=== PATIENT | male | born 1970 | race Caucasian/White ===

== ENCOUNTER → 2019-03-05 08:10 | Outpatient (CLI) | payer SELFPAY ==
[2019-03-05 08:45] LABS: Basophils % 0.6 % (0.1-2.0); Eosinophils # 0.1 K/mm3 (0.0-0.4); Eosinophils % 1.7 % (0.1-12.0); Hematocrit 47.3 % (42.0-52.0); Hemoglobin 15.8 g/dL (14.1-18.0); Lymphocytes # 1.3 K/mm3 (0.7-4.5); Lymphocytes % 27.3 % (10-50); Mean Corpuscular HGB Conc 33.4 g/dL (31.8-35.4); Mean Corpuscular Hemoglobin 29.6 pg (27.0-31.2); Mean Corpuscular Volume 88.7 fl (80-94); Mean Platelet Volume 7.3 fl (7.4-10.4); Monocytes # 0.5 K/mm3 (0.1-1.0); Monocytes % 9.7 % (1.7-9.3); Neutrophils # 2.8 K/mm3 (1.8-7.8); Neutrophils % 60.8 % (37.0-80.0); Platelet Count 203 K/mm3 (142-424); Red Blood Count 5.33 M/mm3 (4.60-6.20); Red Cell Distribution Width 13.3 % (11.5-17.5); White Blood Count 4.7 K/mm3 (4.8-10.8)
[2019-03-05 09:51] LABS: Anion Gap 14.2 mEq/L (5-15); Blood Urea Nitrogen 18 mg/dL (7-18); Calcium 9.1 mg/dL (8.5-10.1); Carbon Dioxide 28 mmol/L (21.0-32.0); Chloride 100 mmol/L (98-107); Chol/HDL Ratio 6.7 (1-3.5); Cholesterol 209 mg/dL (140-200); Creatinine,Serum 1.16 mg/dL (0.70-1.30); Estimated Glomerular Filt Rate 68 ml/min (>60); GFR (African American) 82 ML/MIN (>60); Glucose 107 mg/dL (74-106); HDL Cholesterol 31 mg/dL (27-67); LDL Cholesterol 125 mg/dL (0-130); Potassium 4.2 mmoL/L (3.5-5.1); Sodium 138 mmol/L (136-145); Triglycerides 263 mg/dL (30-200); VLDL Cholesterol 53 mg/dL (0-40)
[2019-03-06 09:13] LABS: Testosterone,Total 231 ng/dL (264-916)
== END ==
PROVIDERS: Visit Provider Family Medicine
DX: I10 Essential (primary) hypertension (principal); R79.89 Other specified abnormal findings of blood chemistry
CPT/HCPCS: 36415; 80048; 80061; 83880; 84403; 85025

== ENCOUNTER → 2019-03-11 08:43 | Outpatient (CLI) | payer SELFPAY ==
--- NOTE | 2019-03-11 08:46 | CA_ITS ---
PROCEDURE: 2-D M-mode and color Doppler study INDICATIONS FOR THE TEST: Chest pain COPD Heart Murmur Tobacco Smoking Palpitations+ Fatigue Syncope Edema+ Hypertension+Diabetes Mellitus Rheumatic Fever SOB+LAUREN Obesity Hyperlipidemia Family History HD Additional History a-fib PATIENT INFORMATION HEIGHT: 72 WEIGHT:290 GENDER: Male B/P:145/95 TDS-R/T PT BODY HABITUS 2-D/M-MODE INTERPRETATION: 2-D MEASUREMENTS OBSERVED VALUES IN CMS Right Ventricular Dimension (RVDd) 1.9 Interventricular Septum (Thickness)(IVsd) 1.0 Left Ventricular Internal Dimensions(LVIDd) 5.6 Left Ventricular Posterior Wall (Thickness)(LVPWd) 0.9 Aortic Root 3.1 Aortic Cusp Separation 2.1 Left Atrial Dimensions (LAD) 4.1 2D 1. Left atrium is mildly enlarged, left ventricle is normal size, there is no concentric left ventricular hypertrophy, visually estimated ejection fraction 55% with no regional wall motion abnormality. 2. The right atrium and right ventricle are normal size and contractility. 3. The aortic, mitral and tricuspid valvular grossly normal. 4. The pulmonic valve is poorly visualized. 6. No significant pericardial effusion noted. DOPPLER INTERROGATION: Doppler interrogation of the aortic, mitral and tricuspid valvular presence of mild mitral and tricuspid regurgitation, tricuspid regurgitation jet velocity is inadequate for calculation of the right ventricular systolic pressure, diastolic parameters are within normal range. CONCLUSION: 1. Mildly enlarged left atrium, normal left ventricular size, there is no concentric left ventricular hypertrophy, visually estimated ejection fraction 55% with no regional wall motion abnormality, diastolic parameters are within normal range. 2. Mild mitral and tricuspid regurgitation 3. No significant pericardial effusion noted.
== END ==
PROVIDERS: PCP Family Medicine; Visit Provider Family Medicine
DX: I11.0 Hypertensive heart disease with heart failure (principal); I10 Essential (primary) hypertension
CPT/HCPCS: 93306

== ENCOUNTER → 2020-12-14 11:04 | Outpatient (CLI) | payer OTHER, SELFPAY ==
[2020-12-14 12:25] LABS: Alanine Aminotransferase 66 U/L (12-78); Albumin Level 4.5 g/dl (3.5-5.0); Alkaline Phosphatase 69 U/L (38-126); Aspartate Amino Transferase 40 U/L (17-59); Bilirubin,Direct 0.1 mg/dl (0.0-0.4); Bilirubin,Indirect 0.3 mg/dL (0.0-0.9); Bilirubin,Total 0.4 mg/dl (0.2-1.3); Bilirubin,Unconjugated 0.3 mg/dL (0.0-1.1); Chol/HDL Ratio 5.4 (1-3.5); Cholesterol 194 mg/dl (140-200); HDL Cholesterol 36 mg/dl (40-60); Total Protein,Serum 7.8 g/dl (6.3-8.2); Triglycerides 343 mg/dl (30-150); VLDL Cholesterol 69 mg/dL (0-40)
[2020-12-14 12:34] LABS: NT Pro Brain Natriuretic Pep. 24.4 pg/mL (0-125)
[2020-12-14 12:36] LABS: Direct LDL Cholesterol 109.64 mg/dL (100-129)
== END ==
PROVIDERS: Visit Provider Internal Medicine Cardiovascular Disease
DX: R07.89 Other chest pain (principal); R06.00 Dyspnea, unspecified; R00.2 Palpitations; I48.0 Paroxysmal atrial fibrillation; E66.01 Morbid (severe) obesity due to excess calories; G47.33 Obstructive sleep apnea (adult) (pediatric)
CPT/HCPCS: 36415; 80061; 80076; 83880

== ENCOUNTER → 2021-01-01 07:54 | Outpatient (CLI) | payer SELFPAY ==
--- NOTE | 2021-01-01 07:54 | CT_ITS ---
PROCEDURE: CT HEART W CALCIUM SCORE CLINICAL HISTORY: dyspnea COMPARISON: CT SPLUMBWO CT lumbar spine wo con from 05/15/2018 TECHNIQUE: Axial images obtained with sagittal and coronal reformats. All CT scans at the facility use one or more dose reduction, viz: automated exposure control, ma/kV adjustment per patient size (including targeted exams where dose is matched to indication, i.e. head), or iterative reconstruction technique. FINDINGS: Coronary artery calcium score is 7. Minimal calcific plaque burden with low cardiovascular disease risk There is an epidural stimulator device present in lower thoracic region. IMPRESSION: Minimal calcific plaque burden with low cardiovascular disease risk Dictated by: Daniel Angela MD 01/01/2021 10:28 Daniel Angela MD in [facility] 01/01/2021 10:28
== END ==
PROVIDERS: PCP Family Medicine; Visit Provider Internal Medicine Cardiovascular Disease
DX: Z13.6 Encounter for screening for cardiovascular disorders (principal); R07.89 Other chest pain; R06.00 Dyspnea, unspecified; R00.2 Palpitations; I48.0 Paroxysmal atrial fibrillation; E66.01 Morbid (severe) obesity due to excess calories; G47.33 Obstructive sleep apnea (adult) (pediatric)
CPT/HCPCS: 75571

== ENCOUNTER → 2021-01-01 08:25 | Outpatient (CLI) | payer OTHER, SELFPAY ==
--- NOTE | 2021-01-01 08:26 | CA_ITS ---
APPROVED REPORT EXAM: Comprehensive 2D, Doppler, and color-flow Echocardiogram Punch Box Tender: Marry Manjarrez RT(R) Ht: 6 ft 1 in Wt: 355lbs BSA: 2.75 BP: 147/82 mmHg Indications: SOA, ex smoker, palpitations, HTN, SOB, LAUREN, obesity, AFIB, MICHELLE Echo Enhancing Agent Indication: Endocardial border delineation Agent(s) / Amount(s) Used: Definity 2 cc 2D Dimensions LVOT 2.04 cm (M/F) 1.5-2.5 M-Mode Dimensions RVDd 3.31 cm (0.9-2.6) LA Diam 3.41 cm (1.9-4.0) LVDd 6.39 cm (3.5-5.7) Ao Diam 3.14 cm (2.0-3.7) LVDs 5.01 cm (3.5-5.7) IVSd 0.89 cm (0.6-1.1) PWd 0.89 cm (0.6-1.1) EF (Teich) 42.80% FS 21.60% EDV (Teich) 207.80 mL ESV (Teich) 118.80 mL LV Diastology E Decel Time 220.00 (160-240 msec) E/A Ratio 1.2 MED E' 9.40 (< 7 cm/sec) E'/MED E' Ratio 9.28 (>14) LAT E' 14.50 (<10 cm/sec) E/LAT E' Ratio 6.01 (>14) Mitral Valve MV E Max Gama. 87.00 (40-130 cm/s) MV A Velocity 73.00 (40-130 cm/s) E/A Ratio 1.20 MV Decel. Time 220.00 (160-240 ms) MV PHT 64.00 ms Left Ventricle Left atrium is mildly enlarged, left ventricle is normal size, there is no concentric left ventricular hypertrophy, visually estimated ejection fraction 55% with no regional wall motion abnormality, Definity contrast was utilized to delineate the endocardial surfaces, there is no left ventricular thrombus seen. Diastolic parameters are inconclusive. Right Ventricle Right atrium and right ventricle are mildly enlarged with normal contractility. Aortic Valve Aortic valve is minimally thickened and fibrosed, there is no aortic stenosis or aortic insufficiency. Mitral Valve Mitral valve is grossly normal, there is trace mitral regurgitation. Tricuspid Valve Tricuspid valve grossly normal, there is trace tricuspid regurgitation. Pulmonic Valve Pulmonic valve is poorly visualized. Great Vessels Aortic root is normal size. Pericardium No significant pericardial effusion noted. Conclusion 1. Technically difficult study, Definity contrast was utilized to delineate the endocardial surfaces. Mild biatrial enlargement, normal left ventricular size, visually estimated ejection fraction 55% with no regional wall motion abnormality, diastolic parameters are inconclusive. 2. Mildly enlarged right ventricle with normal contractility. 3. Trace mitral and tricuspid regurgitation. 4. No significant pericardial effusion noted. Electronically signed by : Isma Aparicio, 01/01/2021 09:28:39
== END ==
PROVIDERS: PCP Family Medicine; Visit Provider Internal Medicine Cardiovascular Disease
DX: R07.89 Other chest pain (principal); R06.00 Dyspnea, unspecified; R00.2 Palpitations; I48.0 Paroxysmal atrial fibrillation; E66.01 Morbid (severe) obesity due to excess calories; G47.33 Obstructive sleep apnea (adult) (pediatric)
CPT/HCPCS: 93306; Q9957

== ENCOUNTER 2021-05-27 16:15 | Emergency (ER) | payer OTHER, SELFPAY ==
--- NOTE | 2021-05-27 16:15 | ECG_ITS ---
APPROVED REPORT Exam: Resting ECG HR:63 bpm ECG Measurements Heart Rate 63 AXES MA 158 P 48 QRSd 84 QRS 30 QT 398 T 30 QTc 407 Conclusion Normal sinus rhythm Low voltage QRS Late r wave progression Abnormal ECG Electronically signed by : James Mcmahon, 05/27/2021 20:38:53
[2021-05-27 16:21] VITALS: BP 136/79; BP 161/75; PULSE 63; PULSE 65; RESP 18; TEMP 37.3; O2SAT 96; O2SAT 98; BMI 40.6
--- NOTE | 2021-05-27 16:23 | XR_ITS ---
PROCEDURE INFORMATION: Exam: XR Chest Exam date and time: 05/27/2021 4:23 PM Age: 50 years old Clinical indication: Pain; Chest pressure; Additional info: Chest pain TECHNIQUE: Imaging protocol: XR of the chest. Views: 1 view. COMPARISON: No relevant prior studies available. FINDINGS: Lungs: Unremarkable. No consolidation. Pleural spaces: Unremarkable. No pleural effusion. No pneumothorax. Heart/Mediastinum: Unremarkable. No cardiomegaly. Bones/joints: Unremarkable. IMPRESSION: No acute findings.
[2021-05-27 16:32] LABS: Basophils % 0.5 % (0.1-2.0); Eosinophils # 0.1 K/mm3 (0.0-0.4); Eosinophils % 1.6 % (0.1-12.0); Hematocrit 41.3 % (42.0-52.0); Hemoglobin 14.1 g/dL (14.1-18.0); Lymphocytes # 1.8 K/mm3 (0.7-4.5); Lymphocytes % 26.6 % (10-50); Mean Corpuscular Hemoglobin 30.2 pg (27.0-31.2); Mean Corpuscular Volume 88.7 fl (80-94); Mean Platelet Volume 7.8 fl (7.4-10.4); Monocytes # 0.5 K/mm3 (0.1-1.0); Monocytes % 6.7 % (1.7-9.3); Neutrophils # 4.3 K/mm3 (1.8-7.8); Neutrophils % 64.6 % (37.0-80.0); Platelet Count 215 K/mm3 (142-424); Red Blood Count 4.66 M/mm3 (4.60-6.20); Red Cell Distribution Width 13.7 % (11.5-17.5); White Blood Count 6.7 K/mm3 (4.8-10.8)
[2021-05-27 16:38] LABS: Chloride 105 mmol/L (98-107); Sodium 142 mmol/L (136-145)
[2021-05-27 16:41] LABS: Blood Urea Nitrogen 15 mg/dl (9-20); Calcium 8.9 mg/dl (8.4-10.2); Carbon Dioxide 30 mmol/L (22.0-30.0); Creatinine Clearance Estimated 158 mL/min (50-200); Estimated Glomerular Filt Rate 71 ml/min (>60); GFR (African American) 86 ML/MIN (>60); Glucose 98 mg/dl (74-100)
[2021-05-27 16:55] LABS: Troponin I < 0.01 ng/ml (0.00-0.034)
--- NOTE | 2021-05-27 16:55 | HMH.EDCP ---
ED Disposition Clinical Impression: Atypical chest pain, Palpitation Disposition: Home, Self-Care Condition on Discharge: Good Referrals: James Ponce MD [Primary Care Provider] - - Critical Care Critical Care Time: No Attestation: On 05/27/21, the high probability of a clinically significant, sudden or life threatening deterioration of the following system(s) required my full and direct attention, intervention and personal management. The time I documented below is in addition to time spent performing reported procedures but includes the following listed in this critical care notation. Medical Decision Making - Medical Records MR Comment: . EKG shows normal sinus rhythm. no ST changes.first troponin was negative. second troponinwas negative. - Buster Inquiry Pt receiving controlled substance: No Buster was queried for this patient: No Vital Signs: 05/27/21 16:21 05/27/21 17:00 05/27/21 17:30 Temperature 99.1 F Temperature Source Oral Pulse Rate 63 64 64 Pulse Rate [Radial] 65 Respiratory Rate 18 16 Blood Pressure 136/79 126/76 137/74 Blood Pressure [Right Arm] 161/75 H Blood Pressure Mean [Right Arm] 103 Blood Pressure Position Sitting Blood Pressure Position [Right Arm] Sitting 02 Sat by Pulse Oximetry 96 96 96 Oxygen Delivery Method Room Air Room Air 05/27/21 18:00 Temperature Temperature Source Pulse Rate 65 Pulse Rate [Radial] Respiratory Rate 16 Blood Pressure 129/70 Blood Pressure [Right Arm] Blood Pressure Mean [Right Arm] Blood Pressure Position Sitting Blood Pressure Position [Right Arm] 02 Sat by Pulse Oximetry 97 Oxygen Delivery Method - Lab Data Lab Results 05/27/21 16:20: WBC 6.7, RBC 4.66, Hgb 14.1, Hct 41.3 L, MCV 88.7, MCH 30.2, MCHC 34.0, RDW 13.7, Plt Count 215, MPV 7.8, Neut % (Auto) 64.6, Lymph % (Auto) 26.6, Arthur % (Auto) 6.7, Eos % (Auto) 1.6, Baso % (Auto) 0.5, Neut # (Auto) 4.3, Lymph # (Auto) 1.8, Arthur # (Auto) 0.5, Eos # (Auto) 0.1, Baso # (Auto) 0.0 05/27/21 16:20: Sodium 142, Potassium 4.0, Chloride 105, Carbon Dioxide 30, Anion Gap 11.0, BUN 15, Creatinine 1.10, Estimated Creat Clear 158, Estimated GFR 71, Est GFR ( Amer) 86, Glucose 98, Calcium 8.9, Troponin I < 0.01 05/27/21 18:30: Troponin I < 0.01 Result diagrams: 05/27/21 16:20 05/27/21 16:20 Orders (Tests/Meds): ED MEDICATIONS Discontinued Medications Generic Name Dose Route Start Last Admin Trade Name Yonis PRN Reason Stop Dose Admin Aspirin 325 mg 05/27/21 16:55 05/27/21 17:30 Aspirin 325mg Tablet PO 05/27/21 16:56 Not Given ONCE ONE Belladonna Alkaloids 60 ml 05/27/21 16:56 05/27/21 17:30 Gi Cocktail 60ml Udc PO 05/27/21 16:57 60 ml ONCE ONE Administration ORDERS Category Date Time Status Troponin I Q3H Lab 05/27/21 22:30 Ordered Chest Pain HPI - General Chief Complaint: Chest Pain Stated Complaint: Chest Pain Time Seen by Provider: 05/27/21 16:56 Mode of Arrival: Ambulatory Limitations: No Limitations Description of Symptoms (Recalled from ER Triage Doc. by RN): TO ED PER [facility] CAR WITH C/O CHEST DISCOMFORT, HEART FLUTTERING STARTING FRIDAY. PT WITH HX OF AFIB. +SOB, DENIES ANY NAUSEA, VOMITING, RADIATION OF PAIN. PT STATES HE WAS TOLD NOT TO TAKE ASA FOR SEVERAL DAYS DUE TO UP COMING PROCEDURE. - History of Present Illness HPI narrative: He is 50-year-old male with a history of paroxysmal atrial fibrillation who has been followed by a tank bottom assembler. He was seen by the tank bottom assembler last March and he was switched from Inderal to metoprolol 25 mg on daily basis. He had Holter monitor in the past. He said on Friday he had a mild irritation in the chest and felt tired and fluttery and with shortness of breath these episodes is intermittent. He has a history of acid reflux problems also. He has a problem with anxiety and PTSD. He thought it may be related to anxiety but he came to the emergency room for evaluation.
[2021-05-27 17:00] VITALS: BP 126/76; PULSE 64; RESP 16; O2SAT 96
[2021-05-27 17:30] VITALS: BP 137/74; PULSE 64; O2SAT 96
[2021-05-27 18:00] VITALS: BP 129/70; PULSE 65; RESP 16; O2SAT 97
[2021-05-27 19:01] LABS: Troponin I < 0.01 ng/ml (0.00-0.034)
[2021-05-27 19:29] VITALS: BP 126/74; PULSE 55; RESP 16; TEMP 36.6; O2SAT 98
== END 2021-05-27 19:30 | disposition home or self-care (01) ==
PROVIDERS: Emergency Provider Internal Medicine; PCP Family Medicine
DX: R07.89 Other chest pain (principal); I48.0 Paroxysmal atrial fibrillation; I10 Essential (primary) hypertension; Z87.891 Personal history of nicotine dependence
CPT/HCPCS: 71045; 80048; 84484; 85025; 93005; 99283

== ENCOUNTER → 2021-05-28 13:57 | Outpatient (CLI) | payer OTHER, SELFPAY | PROVIDERS: PCP Family Medicine; Visit Provider Urology | DX: R06.00 Dyspnea, unspecified (principal); R07.9 Chest pain, unspecified; R00.2 Palpitations; I48.91 Unspecified atrial fibrillation; E66.01 Morbid (severe) obesity due to excess calories | CPT/HCPCS: 93270 ==

== ENCOUNTER → 2021-06-18 11:18 | Outpatient (CLI) | payer OTHER, SELFPAY ==
--- NOTE | 2021-06-18 11:19 | NM_ITS ---
APPROVED REPORT Exam: Nuclear Stress Test Indication: chest pain.short of breath.palpitations.fatigue Patient Location: Outpatient Stress Tech: Tahmina Johnson DC Tech:Dede Villavicencio, ARRT, RT (R)(N) Ht: 6 ft 1 in Wt: 325 lbs HR: 61 bpm BP: 132/74 mmHg BSA: 2.64 m2 BMI: 42.8 History: chest pain.short of breath.palpitations.fatigue Procedure: Patient received a 0.4 mg of intravenous Lexiscan, resting heart rate 61 bpm, resting blood pressure 132/74 mmHg, with Lexiscan maximum heart rate achived was 97 bpm which is Less than 85 % of the maximum predicted heart rate and blood pressure was 142/84 mmHg. With Lexiscan, patient denied any complaint of chest pain. Electrocardiogram Resting electrocardiogram shows sinus rhythm, with Lexiscan there is less than 1.[address] segment depression noted from the baseline EKG. The EKG portion of the Lexiscan is nondiagnostic. Cardiac Stress and Resting SPECT Images: Cardiac Stress and Resting SPECT images were obtained using technetium 99m Myoview 32.5 mCi stress and 10.61 mCi at rest. Gated SPECT for analysis of segmental wall motion and calculation of the ejection fraction also done. Prone images were also obtained. Cardiac stress and rest SPECT images show decreased tracer activity in moderate-sized area involving the anterior apical wall which improves on the resting images suggestive of reversible ischemia, compared right ejection fraction is 56% with no regional wall motion abnormality, right ventricle is normal size and contractility. Conclusion: 1. The EKG portion of the Lexiscan is nondiagnostic. 2. Scintigraphic evidence of mild reversible ischemia involving the anterior apical wall, computer derived ejection fraction 56% with no regional wall motion abnormality, right ventricle is normal size and contractility. 3. Abnormal Lexiscan Myoview study. Electronically signed by : Isma Aparicio MD 06/18/2021 18:15:18
--- NOTE | 2021-06-18 12:51 | CA_ITS ---
APPROVED REPORT EXAM: Comprehensive 2D, Doppler, and color-flow Echocardiogram Box Storage Worker: Anita Knight, ELOINA, RVS Ht: 6 ft 0 in Wt: 325lbs BSA: 2.62 BP: 127/71 mmHg Indications: Shortness of Breath, Atrial Fibrillation, Obesity, MICHELLE Echo Enhancing Agent Comments: Technically limited due to extreme randall habitus and chest circumference 2D Dimensions IVSd 1.19 cm LVEF (Visual) 64.90 % PWd 1.10 cm LA Volume 57.90 mL LVDd 5.80 cm LA Volume Index 22.10 mL/m2 (M/F) 16-34 LVDs 3.71 cm Aortic Root 3.62 cm Left Atrium 4.11 cm LVOT 2.22 cm (M/F) 1.5-2.5 M-Mode Dimensions LA Diam 4.30 cm (1.9-4.0) Ao Diam 3.50 cm (2.0-3.7) EPSs 0.27 cm TAPSE 2.68 (<1.7) LV Diastology E Decel Time 247.00 (160-240 msec) E/A Ratio 1.02 MED E' 10.20 (< 7 cm/sec) MED A' 10.90 cm/s E'/MED E' Ratio 8.12 (>14) LAT E' 8.70 (<10 cm/sec) LAT A' 14.20 cm/s E/LAT E' Ratio 9.52 (>14) Aortic Valve LVOT Max 119.00 (70-110 cm/s) LVOT VTI 26.68 cm AoV Peak Gama. 137.00 (50-130 cm/s) AO Peak GR. 7.50 mmHg AO Mean GR. 3.80 (<5 mmHg) AO VTI 30.42 (18-25 cm) LAWRENCE (VTI) 3.39 (2.5-4.5 cm2) Mitral Valve MV A Velocity 81.00 (40-130 cm/s) E/A Ratio 1.02 MV Decel. Time 247.00 (160-240 ms) Pulmonary Valve PV Peak Velocity 79.00 (50-150 cm/s) Tricuspid Valve TR P. Velocity 184.00 cm/s RAP Estimate 10.00 mmHg RVSP 23.60 mmHg Left Ventricle Left atrium is upper limit of normal size, left ventricle is normal size, left ventricle wall thickness is upper limit of the normal, there is preserved left ventricular systolic function, visually estimated ejection fraction 55% with no regional wall motion abnormality, diastolic parameters are within normal range. Right Ventricle Right atrium and right ventricle are normal size and contractility. Aortic Valve Aortic valve is minimally thickened and fibrosed. There is no aortic stenosis or aortic insufficiency. Mitral Valve Mitral valve grossly normal, there is trace mitral regurgitation. Tricuspid Valve Tricuspid grossly normal, there is trace tricuspid regurgitation, tricuspid regurgitation jet velocity is inadequate for calculation of the right ventricular systolic pressure. Pulmonic Valve Pulmonic valve is poorly visualized. Great Vessels Aortic root is normal size. Pericardium No significant pericardial effusion noted. Conclusion 1. Normal left ventricular size, preserved left ventricular systolic function, visually estimated ejection fraction 55% with no regional wall motion abnormality, diastolic parameters are within normal range. 2. Trace mitral and tricuspid regurgitation. 3. No significant pericardial effusion noted. Electronically signed by : Isma Aparicio MD 06/18/2021 19:15:09
--- NOTE | 2021-06-18 12:56 | HMH.ITSHM ---
Current Home Medications as stated by this patient Pepe Okeefe or insurance verification representative. []ROSUVASTATIN OMEPRAZOLE METOPROLOL MELOXICAM LISINOPRIL ASA
--- NOTE | 2021-06-18 14:13 | CA_ITS ---
APPROVED REPORT Exam: Pharmacologic Technologist: Tahmina Johnson, Ht: 6 ft 0 in Wt: 351 lbs BSA: 2.71 m2 HR: 61 bpm BP: 132/72 mmHg Medical History Medications: Lisinopril,,,,, Omeprazole,,,,, Aspirin,,,,, Crestor,,,,, MeLOXICAM,,,,, Metoprolol Succinate ER,,,,, Stress Test Details Test: LEXISCAN HR Resting HR: 61 bpm Max Heart Rate (APMHR): 172.226546 bpm Max HR Achieved: 97 bpm Target HR (85% APMHR): 146.244337 bpm % of APMHR: 56.40 Recovery HR: 74 bpm BP Resting BP: 132/74 mmHg Max BP: 142/84 mmHg Recovery BP: 142.0/84.0 mmHg ECG Resting ECG: NSR Clinical Reason for Termination: Completed Protocol Exercise duration: 04:01 min Highest Stage Achieved: Exercise capacity: 1.0 METs Stress ECG Conclusion Symptoms: None Arrhythmias/Ectopy: None ST-T Changes: <1.[address] Segment changes Conclusion: Non-diagnostic Electronically signed by : Isma Aparicio MD 06/18/2021 18:08:17
== END ==
PROVIDERS: PCP Family Medicine; Visit Provider Urology
DX: R06.00 Dyspnea, unspecified (principal); R07.9 Chest pain, unspecified; R07.89 Other chest pain; R00.2 Palpitations; I48.91 Unspecified atrial fibrillation; E66.01 Morbid (severe) obesity due to excess calories; G47.33 Obstructive sleep apnea (adult) (pediatric)
CPT/HCPCS: 78452; 93017; 93306; A9502; J2785

== ENCOUNTER 2021-06-26 14:36 | Observation (INO) | payer OTHER, SELFPAY ==
[2021-06-26] VITALS (20 sets, daily range): BP systolic 105–140; BP diastolic 54–89; PULSE 55–81; RESP 13–20; TEMP 36.4; O2SAT 95–99; BMI 47.5
--- NOTE | 2021-06-26 14:34 | ECG_ITS ---
APPROVED REPORT Exam: Resting ECG HR:76 bpm ECG Measurements Heart Rate 76 AXES NC 158 P 34 QRSd 98 QRS 65 QT 376 T 23 QTc 423 Conclusion Normal sinus rhythm Normal ECG Electronically signed by : James Mcmahon MD 06/27/2021 17:44:06
--- NOTE | 2021-06-26 14:39 | XR_ITS ---
PROCEDURE: XR CHEST 2V CLINICAL HISTORY: cp Chest pain COMPARISON: CR XR CHEST PORTABLE from 05/27/2021 FINDINGS: Borderline cardiomegaly without failure. The lungs are clear without infiltrates, suspicious nodules, or pleural effusions. Spinal stimulator device present with the tip over the lower thoracic spine. IMPRESSION: Borderline cardiomegaly otherwise negative Dictated by: Daniel Angela MD 06/26/2021 14:58 Daniel Angela MD in [facility] 06/26/2021 14:58
--- NOTE | 2021-06-26 14:47 | PC.NURSE ---
PT TO XR VIA WHEELCHAIR AT THIS TIME.
--- NOTE | 2021-06-26 14:55 | HMH.EDGENADL ---
ED Disposition Clinical Impression: Unstable angina Disposition: Admitted as Observation Condition on Discharge: Fair - Critical Care Critical Care Time: No Attestation: On 06/26/21, the high probability of a clinically significant, sudden or life threatening deterioration of the following system(s) required my full and direct attention, intervention and personal management. The time I documented below is in addition to time spent performing reported procedures but includes the following listed in this critical care notation. Medical Decision Making - Medical Records Medical records reviewed: Yes: I reviewed the patient's medical records. MR Comment: Reviewed emergency department visit record from 05/27/2021, cardiology office visits from 05/28/2021 and 06/25/2021. Patient to be scheduled for left heart cath 06/29 due to abnormal stress test. Reviewed echocardiogram, heart cath, and cardiac CT results, see below. - Buster Inquiry Pt receiving controlled substance: No Vital Signs: 06/26/21 14:36 06/26/21 15:11 06/26/21 15:30 Temperature 97.5 F L Temperature Source Oral Pulse Rate 81 80 Pulse Rate [Right] 78 Respiratory Rate 18 16 Blood Pressure 105/73 L 119/77 Blood Pressure [Right Arm] 140/86 Blood Pressure Mean [Right Arm] 104 Blood Pressure Source Automatic Cuff Blood Pressure Position Sitting 02 Sat by Pulse Oximetry 97 97 98 Oxygen Delivery Method Room Air Room Air 06/26/21 16:00 06/26/21 16:15 06/26/21 18:00 Temperature 97.5 F L Temperature Source Pulse Rate 72 70 71 Pulse Rate [Right] Respiratory Rate 20 18 18 Blood Pressure 109/54 L 116/71 121/77 Blood Pressure [Right Arm] Blood Pressure Mean [Right Arm] Blood Pressure Source Blood Pressure Position 02 Sat by Pulse Oximetry 97 97 Oxygen Delivery Method Room Air - Lab Data Lab Results 06/26/21 14:40: WBC 6.7, RBC 4.96, Hgb 15.3, Hct 46.0, MCV 92.8, MCH 31.0, MCHC 33.4, RDW 13.6, Plt Count 271, MPV 8.1, Neut % (Auto) 62.3, Lymph % (Auto) 27.9, Hunt % (Auto) 7.5, Eos % (Auto) 1.7, Baso % (Auto) 0.7, Neut # (Auto) 4.1, Lymph # (Auto) 1.9, Hunt # (Auto) 0.5, Eos # (Auto) 0.1, Baso # (Auto) 0.1 06/26/21 14:40: Sodium 140, Potassium 4.5, Chloride 104, Carbon Dioxide 26, Anion Gap 14.5, BUN 20, Creatinine 1.00, Estimated Creat Clear 99, Estimated GFR 80, Est GFR ( Amer) 97, Glucose 106 H, Calcium 9.2, Total Bilirubin 0.2, AST 46, ALT 71, Alkaline Phosphatase 85, Troponin I < 0.01, Total Protein 8.1, Albumin 4.7, Globulin 3.4 H, Albumin/Globulin Ratio 1.4 06/26/21 17:20: Troponin I < 0.01 Result diagrams: 06/26/21 14:40 06/26/21 14:40 Orders (Tests/Meds): ED MEDICATIONS Generic Name Dose Route Start Last Admin Trade Name Freq PRN Reason Stop Dose Admin Diphenhydramine HCl 50 mg 06/26/21 18:14 Diphenhydramine 50mg/Ml Vial IV 06/26/21 18:15 ONCE ONE Fentanyl Citrate 25 mcg 06/26/21 17:46 06/26/21 18:18 Fentanyl 100mcg/2ml Vial IV 06/27/21 17:46 50 mcg Q3MINP PRN Administration Moderate to Severe Pain Fentanyl Citrate 50 mcg 06/26/21 17:46 06/26/21 18:16 Fentanyl 100mcg/2ml Vial IV 06/27/21 17:46 25 mcg Q3MINP PRN Administration Moderate to Severe Pain Fentanyl Citrate 25 mcg 06/26/21 18:19 Fentanyl 250mcg/5ml Vial IV 06/27/21 17:46 Q3MINP PRN Moderate to Severe Pain Fentanyl Citrate 50 mcg 06/26/21 18:19 Fentanyl 250mcg/5ml Vial IV 06/27/21 17:46 Q3MINP PRN Moderate to Severe Pain Flumazenil 0.2 mg 06/26/21 18:19 Flumazenil 0.1mg/Ml 5ml Vial IV 06/26/21 23:00 NEEDED PRN Sedation Heparin Sodium (Porcine) 10,000 unit 06/26/21 17:46 06/26/21 18:13 Heparin 1,000 Units/Ml 10ml Vial (Medicaid Collection Specialist) IV 06/26/21 21:46 5,000 unit NEEDED PRN Administration Emergency Box Fringe Weaver Sodium Chloride 1,000 mls @ 25 mls/hr 06/26/21 18:00 06/26/21 18:12 Sod Chlor 0.9% 1000ml Bag IV 06/27/21 17:
[2021-06-26 14:56] LABS: Basophils # 0.1 K/mm3 (0-0.2); Basophils % 0.7 % (0.1-2.0); Eosinophils # 0.1 K/mm3 (0.0-0.4); Eosinophils % 1.7 % (0.1-12.0); Hemoglobin 15.3 g/dL (14.1-18.0); Lymphocytes # 1.9 K/mm3 (0.7-4.5); Lymphocytes % 27.9 % (10-50); Mean Corpuscular HGB Conc 33.4 g/dL (31.8-35.4); Mean Corpuscular Volume 92.8 fl (80-94); Mean Platelet Volume 8.1 fl (7.4-10.4); Monocytes # 0.5 K/mm3 (0.1-1.0); Monocytes % 7.5 % (1.7-9.3); Neutrophils # 4.1 K/mm3 (1.8-7.8); Neutrophils % 62.3 % (37.0-80.0); Platelet Count 271 K/mm3 (142-424); Red Blood Count 4.96 M/mm3 (4.60-6.20); Red Cell Distribution Width 13.6 % (11.5-17.5); White Blood Count 6.7 K/mm3 (4.8-10.8)
[2021-06-26 14:57] LABS: Chloride 104 mmol/L (98-107); Sodium 140 mmol/L (136-145)
[2021-06-26 14:58] LABS: Potassium 4.5 mmoL/L (3.5-5.1)
[2021-06-26 15:00] LABS: Alanine Aminotransferase 71 U/L (12-78); Albumin Level 4.7 g/dl (3.5-5.0); Albumin/Globulin Ratio 1.4 (1.1-1.8); Alkaline Phosphatase 85 U/L (38-126); Anion Gap 14.5 mEq/L (5-15); Aspartate Amino Transferase 46 U/L (17-59); Bilirubin,Total 0.2 mg/dl (0.2-1.3); Blood Urea Nitrogen 20 mg/dl (9-20); Calcium 9.2 mg/dl (8.4-10.2); Carbon Dioxide 26 mmol/L (22.0-30.0); Creatinine Clearance Estimated 99 mL/min (50-200); Estimated Glomerular Filt Rate 80 ml/min (>60); GFR (African American) 97 ML/MIN (>60); Globulin 3.4 g/dL (1.3-3.2); Glucose 106 mg/dl (74-100); Total Protein,Serum 8.1 g/dl (6.3-8.2)
[2021-06-26 15:13] LABS: Troponin I < 0.01 ng/ml (0.00-0.034)
--- NOTE | 2021-06-26 15:23 | PC.NURSE ---
Dr Brady paged.
--- NOTE | 2021-06-26 17:42 | PC.NURSE ---
DR. TRISTAN SPOKE WITH DR. MORENO, PLAN FOR [employer] GOLDEN GATE DEVELOPER TODAY.
--- NOTE | 2021-06-26 17:48 | PC.NURSE ---
PT PREPPED FOR DUST BOX WORKER, IN HOSPITAL GOWN ONLY, LABELED CONSENT AT BEDSIDE. BELONGINGS GIVEN TO PT'S .
[2021-06-26 17:50] LABS: Troponin I < 0.01 ng/ml (0.00-0.034)
[2021-06-26 18:04] LABS: Coronavirus 19, PCR Not Detected (NotDetected); Influenza A, PCR Not Detected (NotDetected); Influenza B, PCR Not Detected (NotDetected)
--- NOTE | 2021-06-26 18:10 | IR_ITS ---
APPROVED REPORT Patient Location: [facility] Tug Captain: OLIVA Heath RT (R) PROCEDURES Left heart catheterization Left ventriculogram Selective coronary angiogram INDICATION Unstable angina, History of abnormal stress test anterior ischemia Informed consent was obtained prior to the procedure. COMPLICATIONS None Estimated Blood Loss: Less than 10 mls TECHNIQUE One percent lidocaine used to anesthetize the right anterior aspect of the wrist. The right radial artery was accessed via the Seldinger technique. A 6 Israeli sheath was placed in the right radial artery. 2.5 mg of verapamil, 800 mcg of nitroglycerin, 1mg Lidocaine and 5000 U Heparin were given through the arterial sheath. The trap and Poppa and EBU 4 catheter was also used to perform left heart catheterization, left ventriculogram and selective coronary angiogram. At the end of the procedure the sheath was removed good hemostasis was achieved using Traclet band, patient was transferred to the postop holding area in stable condition. ANGIOGRAPHIC RESULTS The left main artery Short but normal The left anterior descending artery Has proximal and mid vessel 10% diffuse luminal irregularities The circumflex artery Is a dominant vessel with mild 10% luminal irregularities The right coronary artery Is a nondominant vessel accompanied by FABBY II flow. There is mild proximal 20 to 30% stenosis with mid vessel 20% stenosis The SANTANA ventriculogram reveals Normal 65% The left ventricular end-diastolic pressure 10 mmHg IMPRESSION Mild nonflow limiting coronary disease as described above Angiographic evidence of endothelial dysfunction involving a nondominant right coronary artery which is unlikely to be producing patient's angina Normal ejection fraction Normal left ventricular end-diastolic pressure PLAN 1. Recommend CTA PA gram this evening to make sure PE is not the etiology for patient's symptoms 2. Patient will be admitted overnight 3. If CTPA gram is negative for PE I would recommend empiric treatment for GI etiologies and consider EGD 4. Risk factor modification 5. Weight loss Electronically signed by : Addison Brady MD 06/26/2021 18:43:02
--- NOTE | 2021-06-26 18:29 | PC.NURSE ---
HOUSE CALLED FOR ADMISSION, NEUS TO [facility] FOR UNSTABLE ANGINA.
--- NOTE | 2021-06-26 18:53 | CT_ITS ---
PROCEDURE INFORMATION: Exam: CTA Chest With Contrast Exam date and time: 06/26/2021 6:53 PM Age: 50 years old Clinical indication: Left-sided; Prior surgery; Surgery date: Post-operative (0-2 days); Patient HX: Chest pain, heart cath earlier today with no stents placed TECHNIQUE: Imaging protocol: Computed tomographic angiography of the chest with contrast. 3D rendering (Not supervised by radiologist): MIP and/or 3D reconstructed images were created by the technologist. Radiation optimization: All CT scans at this facility use at least one of these dose optimization techniques: automated exposure control; mA and/or kV adjustment per patient size (includes targeted exams where dose is matched to clinical indication); or iterative reconstruction. Contrast material: ISO 370; Contrast volume: 70 ml; Contrast route: INTRAVENOUS (IV); COMPARISON: CR XR CHEST 2V 06/26/2021 2:40 PM FINDINGS: Tubes, catheters and devices: Spinal stimulator wires are present. Pulmonary arteries: Normal. No pulmonary emboli. Aorta: No aortic aneurysm. No aortic dissection. Lungs: No consolidation. No masses. Pleural spaces: No pneumothorax. No pleural effusion. Heart: No cardiomegaly. No pericardial effusion. Lymph nodes: No enlarged lymph nodes. Bones/joints: No acute fracture. Soft tissues: No significant swelling. IMPRESSION: No acute findings.
[2021-06-27] VITALS: PULSE 50
[2021-06-27 01:34] VITALS: BP 127/63; PULSE 61; RESP 20; TEMP 36.4; O2SAT 97
[2021-06-27 04:00] VITALS: BP 109/73; PULSE 50; PULSE 64; RESP 20; TEMP 36.2; O2SAT 98
--- NOTE | 2021-06-27 04:54 | PC.NURSE ---
0100- received report from jonh hopper rn Pt. has not c/o pain, n/v/d, dizziness or soa. Remains on bipap with o2 sat 97-98%; tolerating well. R radial cath site dsg in place; dsg c/d/i.
[2021-06-27 05:33] VITALS: BMI 47.7
--- NOTE | 2021-06-27 07:29 | HMH.PHAINT ---
MEDICATION RECONCILIATION COMPLETED USING EXTERNAL PHARMACY FILL HISTORY AND PHYSICIAN OFFICE VISIT LIST.
[2021-06-27 07:33] VITALS: BP 149/86; PULSE 69; RESP 17; TEMP 37; O2SAT 97
--- NOTE | 2021-06-27 07:33 | HMH.HPDC ---
General - General Admission date:: 06/26/21 Discharge date: 06/27/21 *Admission Date: 06/26/21 *Chief complaint: Chest pain *History of present illness: 50-year-old male who had a abnormal stress test and was scheduled for outpatient left heart catheterization on June 29 presented to the emergency department with episodes of chest tightness, diaphoresis, shortness of breath while doing some light activity. This was atypical for the patient. He presented to the emergency department. EKG was unremarkable and troponin was negative. Cardiology was contacted due to the patient's anticipated left heart catheterization later this week and decision was made admit the patient proceed with left heart catheterization due to unstable angina. [facility] History I have reviewed the patient's past medical history: Yes Medical History: Reports:: Atrial Fibrillation, Hypertension, Palpitations Denies:: Cancer, Diabetes Mellitus Type 1, Diabetes Mellitus Type 2, MRSA *Have you ever received a pneumonia vaccine?: No *Have you received a flu vaccine this season?: No Other Surgeries: Yes: No Previous Surgery, Cardiac Catheterization Amputation: No - *Social History Last grade of school completed: High school graduate Smoking Status: Former smoker Alcohol Intake: never Substance Use Type: denies use *Occupational Status:: unemployed Household Members: spouse *Travel in the last 8 weeks: None Family Hx:: Hypertension, Stroke Review of Systems - Review of Systems Review of systems:: pertinent systems reviewed and negative unless documented below Exam Vital signs and Labs for Last 24 Hours: Temp Pulse Resp BP Pulse Ox 97.1 F L 64 20 109/73 L 98 06/27/21 04:00 06/27/21 04:00 06/27/21 04:00 06/27/21 04:00 06/27/21 04:00 Laboratory Results - last 24 hr 06/26/21 14:40: WBC 6.7, RBC 4.96, Hgb 15.3, Hct 46.0, MCV 92.8, MCH 31.0, MCHC 33.4, RDW 13.6, Plt Count 271, MPV 8.1, Neut % (Auto) 62.3, Lymph % (Auto) 27.9, [place] % (Auto) 7.5, Eos % (Auto) 1.7, Baso % (Auto) 0.7, Neut # (Auto) 4.1, Lymph # (Auto) 1.9, [place] # (Auto) 0.5, Eos # (Auto) 0.1, Baso # (Auto) 0.1 06/26/21 14:40: Sodium 140, Potassium 4.5, Chloride 104, Carbon Dioxide 26, Anion Gap 14.5, BUN 20, Creatinine 1.00, Estimated Creat Clear 99, Estimated GFR 80, Est GFR ( Amer) 97, Glucose 106 H, Calcium 9.2, Total Bilirubin 0.2, AST 46, ALT 71, Alkaline Phosphatase 85, Troponin I < 0.01, Total Protein 8.1, Albumin 4.7, Globulin 3.4 H, Albumin/Globulin Ratio 1.4 06/26/21 17:20: Troponin I < 0.01 06/26/21 17:53: SARS-CoV-2 (PCR) Not detected, Influenza A Untype (PCR) Not detected, Influenza Type B (PCR) Not detected I & O for Last 24 hours: Intake & Output 06/24/21 06/25/21 06/26/21 06/27/21 11:59 11:59 11:59 11:59 Weight 352 lb 5 oz - Constitutional no acute distress - *Routine HEENT Exam Head: Present: normocephalic Eye: Present: EOMI, PERRL ENT: Present: mucous membranes moist - *Routine Neck Exam Present: supple. Absent: lymphadenopathy - *Routine Respiratory Exam Present: CTA bilaterally - *Routine Cardiovascular Exam Present: RRR - *Routine Abdominal Exam Present: soft, normoactive bowel sounds. Absent: tenderness - *Routine Rectal Exam Rectal:: deferred - *Routine Genitalia Exam Genitalia:: deferred - *Routine Extremities Exam Absent: cyanosis, clubbing, edema - *Routine Skin Exam Present: warm. Absent: rash - *Routine Neurological Exam Present: alert, oriented X3 Hospital Course Hospital Course: Patient was admitted and taken to the Waste Disposal [facility] Tester with findings as follows: MPRESSION Mild nonflow limiting coronary disease as described above Angiographic evidence of endothelial dysfunction involving a nondominant right coronary artery which is unlikely to be producing patient's angina Normal ejection fraction Normal left ventricular end-diastolic pressure PLAN 1. Recommend CTA PA gram this evening to make sure
[2021-06-27 08:00] VITALS: PULSE 60
--- NOTE | 2021-06-27 08:56 | HMH.CNCARD ---
History of Present Illness Consult date: 06/27/21 Requesting physician: James Ponce Consult reason: chest pain Chief complaint: chest pain History of present illness: This is a 50 year old year old gentleman who was admitted with CP. The patient is having tightness in the center of the chest. it is associated with SOB and diaphoresis. occurs with light exertion and improves with rest. pt recently had an abnormal stress test and was scheduled for an outpatient LHC. Pt presented to the ED with worsening angina. His troponins were negative. Given his [place] and abnormal stress test, patient was taken to the lab rep and underwent LHC. LHC shows: Mild nonflow limiting coronary disease as described above Angiographic evidence of endothelial dysfunction involving a nondominant right coronary artery which is unlikely to be producing patient's angina Normal ejection fraction Normal left ventricular end-diastolic pressure PLAN 1. Recommend CTA PA gram this evening to make sure PE is not the etiology for patient's symptoms 2. Patient will be admitted overnight 3. If CTPA gram is negative for PE I would recommend empiric treatment for GI etiologies and consider EGD 4. Risk factor modification 5. Weight loss This morning pt denies CP or pressure. Denies SOB or edema. Denies fever, chills, n/v/d, PND or orthopnea. CTA chest was negative for PE. [facility] History I have reviewed the patient's past medical history: Yes Medical History: Reports:: Atrial Fibrillation, Coronary Artery Disease, Hypertension, Palpitations Denies:: Cancer, Diabetes Mellitus Type 1, Diabetes Mellitus Type 2, MRSA *Have you ever received a pneumonia vaccine?: No *Have you received a flu vaccine this season?: No Other Surgeries: Yes: No Previous Surgery, Cardiac Catheterization Amputation: No - *Social History Last grade of school completed: High school graduate Smoking Status: Former smoker Alcohol Intake: never Substance Use Type: denies use *Occupational Status:: unemployed Household Members: spouse *Travel in the last 8 weeks: None Family Hx:: Hypertension, Stroke Meds Home Medications Medication Instructions Recorded Confirmed Type aspirin 81 mg tablet,delayed 81 mg PO DAILY 12/14/20 06/27/21 History release meloxicam 15 mg tablet 15 mg PO DAILY PRN tab 04/06/21 06/27/21 History Metoprolol Succinate [Metoprolol 25 mg PO QHS 06/27/21 06/27/21 History Succinate 25mg Tablet*] Omeprazole 40 mg PO DAILY 06/27/21 06/27/21 History Rosuvastatin Calcium 20 mg PO DAILY 06/27/21 06/27/21 History lisinopriL [Lisinopril] 20 mg PO DAILY 06/27/21 06/27/21 History Allergies Allergy/AdvReac Type Severity Reaction Status Date / Time No Known Allergies Allergy Verified 06/25/21 09:33 Exam Vital signs and Labs for Last 24 Hours: Temp Pulse Resp BP Pulse Ox 98.6 F 69 17 149/86 H 97 06/27/21 07:33 06/27/21 07:33 06/27/21 07:33 06/27/21 07:33 06/27/21 07:33 Laboratory Results - last 24 hr 06/26/21 14:40: WBC 6.7, RBC 4.96, Hgb 15.3, Hct 46.0, MCV 92.8, MCH 31.0, MCHC 33.4, RDW 13.6, Plt Count 271, MPV 8.1, Neut % (Auto) 62.3, Lymph % (Auto) 27.9, [place] % (Auto) 7.5, Eos % (Auto) 1.7, Baso % (Auto) 0.7, Neut # (Auto) 4.1, Lymph # (Auto) 1.9, [place] # (Auto) 0.5, Eos # (Auto) 0.1, Baso # (Auto) 0.1 06/26/21 14:40: Sodium 140, Potassium 4.5, Chloride 104, Carbon Dioxide 26, Anion Gap 14.5, BUN 20, Creatinine 1.00, Estimated Creat Clear 99, Estimated GFR 80, Est GFR ( Amer) 97, Glucose 106 H, Calcium 9.2, Total Bilirubin 0.2, AST 46, ALT 71, Alkaline Phosphatase 85, Troponin I < 0.01, Total Protein 8.1, Albumin 4.7, Globulin 3.4 H, Albumin/Globulin Ratio 1.4 06/26/21 17:20: Troponin I < 0.01 06/26/21 17:53: SARS-CoV-2 (PCR) Not detected, Influenza A Untype (PCR) Not detected, Influenza Type B (PCR) Not detected I & O for Last 24 hours: Intake & Output 0806/25/21 06/26/21 06/27/21 23:59 23:59 23:59 23:59 Intake Total 360 / 360
--- NOTE | 2021-06-27 09:10 | HMH.PHAINT ---
MEDICATION DISCHARGE COUNSELING COMPLETE. PATIENT HAD NO QUESTIONS. PATIENT WASN'T ADDING ON ANY NEW MEDICATIONS OR DISCONTINUING ANY MEDICATIONS.
== END 2021-06-27 09:12 | disposition home or self-care (01) ==
LOC: ER 18:03 → SDC 18:19 → 2ND 18:21
PROVIDERS: Admitting Provider Family Medicine; Emergency Provider Emergency Medicine; PCP Family Medicine; Referring Provider Internal Medicine; Visit Provider Family Medicine
DX: E66.01 Morbid (severe) obesity due to excess calories (principal); G47.33 Obstructive sleep apnea (adult) (pediatric); I48.0 Paroxysmal atrial fibrillation; R06.00 Dyspnea, unspecified; R94.39 Abnormal result of other cardiovascular function study; I25.110 Atherosclerotic heart disease of native coronary artery with unstable angina pectoris; Z20.822 Contact with and (suspected) exposure to COVID-19; Z68.42 Body mass index [BMI] 45.0-49.9, adult
CPT/HCPCS: 71046; 71275; 80053; 84484; 85025; 93005; 93458; 99152; 99283; C1725; C1760; C1769; G0378; J1644; Q9967; U0003

== ENCOUNTER → 2023-05-22 10:37 | Outpatient (CLI) | payer BC, SELFPAY ==
[2023-05-22 12:00] LABS: Basophils % 0.5 % (0.1-2.0); Eosinophils # 0.2 K/mm3 (0.0-0.4); Eosinophils % 3.2 % (0.1-12.0); Hemoglobin 15.7 g/dL (14.1-18.0); Lymphocytes # 1.6 K/mm3 (0.7-4.5); Lymphocytes % 27.2 % (10-50); Mean Corpuscular HGB Conc 32.8 g/dL (31.8-35.4); Mean Corpuscular Hemoglobin 29.8 pg (27.0-31.2); Mean Corpuscular Volume 90.8 fl (80-94); Mean Platelet Volume 8.2 fl (7.4-10.4); Monocytes # 0.5 K/mm3 (0.1-1.0); Monocytes % 8.6 % (1.7-9.3); Neutrophils # 3.6 K/mm3 (1.8-7.8); Neutrophils % 60.5 % (37.0-80.0); Platelet Count 197 K/mm3 (142-424); Red Blood Count 5.29 M/mm3 (4.60-6.20); Red Cell Distribution Width 13.4 % (11.5-17.5); White Blood Count 5.9 K/mm3 (4.8-10.8)
[2023-05-22 12:11] LABS: Chloride 102 mmol/L (98-107); Sodium 138 mmol/L (136-145)
[2023-05-22 12:12] LABS: Potassium 4.5 mmoL/L (3.5-5.1)
[2023-05-22 12:14] LABS: Alanine Aminotransferase 62 U/L (12-78); Albumin Level 4.4 g/dl (3.5-5.0); Alkaline Phosphatase 69 U/L (38-126); Anion Gap 10.5 mEq/L (5-15); Aspartate Amino Transferase 44 U/L (17-59); Bilirubin,Direct 0.2 mg/dl (0.0-0.4); Bilirubin,Indirect 0.3 mg/dL (0.0-0.9); Bilirubin,Total 0.5 mg/dl (0.2-1.3); Bilirubin,Unconjugated 0.3 mg/dL (0.0-1.1); Blood Urea Nitrogen 15 mg/dl (9-20); Calcium 9.2 mg/dl (8.4-10.2); Carbon Dioxide 30 mmol/L (22.0-30.0); Cholesterol 127 mg/dl (140-200); Estimated Glomerular Filt Rate 64 ml/min (>60); GFR (African American) 78 ML/MIN (>60); Glucose 104 mg/dl (74-100); Total Protein,Serum 7.2 g/dl (6.3-8.2); Triglycerides 228 mg/dl (30-150); VLDL Cholesterol 46 mg/dL (0-40)
[2023-05-22 12:15] LABS: Chol/HDL Ratio 3.6 (1-3.5); HDL Cholesterol 35 mg/dl (40-60); Magnesium 1.8 mg/dl (1.6-2.3)
[2023-05-22 12:26] LABS: Direct LDL Cholesterol 67.53 mg/dL (100-129)
[2023-05-22 12:31] LABS: Free T4 (Free Thyroxine) 1.02 ng/dl (0.78-2.19)
[2023-05-22 12:45] LABS: Thyroid Stimulating Hormone 1.58 uIU/mL (0.465-4.68)
[2023-05-22 13:06] LABS: Hemoglobin A1C 5.9 % (4.0-6.0)
--- NOTE | 2023-07-02 13:36 | PC.NURSE ---
Addendum entered by Yas Lo, RT 07/02/23 14:00: CANCELLED FOR [id number]... Original Note: PATIENT RECEIVED 2 WEEK EVENT MONITOR - NO DATA RECEIVED - CHARGE CANCELLED
== END ==
LOC: LAB 10:37
PROVIDERS: PCP Nurse Practitioner Family; Visit Provider Nurse Practitioner
DX: R06.00 Dyspnea, unspecified (principal); R42 Dizziness and giddiness; R55 Syncope and collapse; I25.10 Atherosclerotic heart disease of native coronary artery without angina pectoris; I48.91 Unspecified atrial fibrillation; I11.9 Hypertensive heart disease without heart failure; E78.5 Hyperlipidemia, unspecified; G47.33 Obstructive sleep apnea (adult) (pediatric); I63.9 Cerebral infarction, unspecified; E11.9 Type 2 diabetes mellitus without complications; E66.01 Morbid (severe) obesity due to excess calories; Z68.42 Body mass index [BMI] 45.0-49.9, adult
CPT/HCPCS: 36415; 80048; 80061; 80076; 83036; 83735; 84439; 84443; 85025; 93270

== ENCOUNTER → 2023-06-09 14:28 | Outpatient (CLI) | payer BC, OTHER, SELFPAY ==
--- NOTE | 2023-06-09 14:34 | CA_ITS ---
APPROVED REPORT EXAM: Comprehensive 2D, Doppler, and color-flow Echocardiogram Cardiac Cath Technician: Sarah Dave RVT Ht: 6 ft 2 in Wt: 360lbs BSA: 2.79 BP: 145/85 mmHg Indications: DYSPNEA,HTN,A-FIB,MICHELLE,CAD,HLD,PALPS,OBESITY,EX SMOKER TDS-BEST EXAM POSSIBLE R/T PT BODY HABITUS 2D Dimensions LVOT 2.35 cm (M/F) 1.5-2.5 LA Volume 39.80 mL LA Volume Index 14.27 mL/m2 (M/F) 16-34 M-Mode Dimensions RVDd 2.75 cm (0.9-2.6) LA Diam 3.82 cm (1.9-4.0) LVDd 5.85 cm (3.5-5.7) Ao Diam 3.48 cm (2.0-3.7) LVDs 4.03 cm (3.5-5.7) IVSd 1.57 cm (0.6-1.1) PWd 1.03 cm (0.6-1.1) EF (Teich) 58.00% FS 31.10% EDV (Teich) 169.90 mL ESV (Teich) 71.30 mL LV Diastology E Decel Time 270.00 (160-240 msec) E/A Ratio 1.0 MED E' 8.40 (< 7 cm/sec) E'/MED E' Ratio 8.61 (>14) LAT E' 8.90 (<10 cm/sec) E/LAT E' Ratio 8.12 (>14) Aortic Valve AO Peak GR. 8.70 mmHg Mitral Valve MV E Max Gama. 72.00 (40-130 cm/s) MV A Velocity 70.00 (40-130 cm/s) E/A Ratio 1.03 MV Decel. Time 270.00 (160-240 ms) MV PHT 79.00 ms Pulmonary Valve PV Peak Velocity 83.00 (50-150 cm/s) Left Ventricle The left ventricle is normal size. The left ventricular systolic function is normal. The left ventricular ejection fraction is within the normal range. There is normal left ventricular wall thickness. There is moderate hypokinesis in the inferior, lateral, and inferolateral LV alvarez. The left ventricular diastolic function is normal. LVEF is 55%. Right Ventricle The right ventricle is normal size. The right ventricular systolic function is normal. The RV wall is mildly thickened. Atria The left atrium size is normal. The right atrium size is normal. Aortic Valve The aortic valve opens well. There is no aortic valvular stenosis. Trace aortic regurgitation. Mitral Valve The mitral valve is normal in structure. No evidence of mitral valve stenosis. There is no mitral valve regurgitation noted. Tricuspid Valve The tricuspid valve leaflets are thin and pliable. Trace tricuspid regurgitation. RVSP is normal. Pulmonic Valve The pulmonary valve is normal in structure. Trace pulmonic regurgitation. Great Vessels The aortic root is normal in size. The ascending aorta is normal in size. IVC is normal in size and collapses >50% with inspiration. Pericardium There is no pericardial effusion. Other Information Study Quality: Technically Difficult Conclusion This was a technically difficult study due to poor accoustic windows. Normal biventricular systolic function. Hypokinesis of the inferior, lateral, and inferolateral LV alvarez. No significant valvular disease. Electronically signed by : Niharika Dean, 06/10/2023 12:27:48
== END ==
PROVIDERS: PCP Nurse Practitioner Family; Visit Provider Nurse Practitioner
DX: R06.00 Dyspnea, unspecified (principal); R42 Dizziness and giddiness; R55 Syncope and collapse; I25.10 Atherosclerotic heart disease of native coronary artery without angina pectoris; I10 Essential (primary) hypertension; I48.91 Unspecified atrial fibrillation; E78.5 Hyperlipidemia, unspecified; G47.33 Obstructive sleep apnea (adult) (pediatric); E66.01 Morbid (severe) obesity due to excess calories; Z68.42 Body mass index [BMI] 45.0-49.9, adult
CPT/HCPCS: 93306

== ENCOUNTER → 2023-06-16 06:59 | Outpatient (CLI) | payer BC, OTHER, SELFPAY ==
--- NOTE | 2023-06-16 07:04 | NM_ITS ---
APPROVED REPORT Exam: Nuclear Stress Test Indication: chest pain..soa..palpitations.fatigue...high cholesterol..family hx Patient Location: Outpatient Stress Tech: Lucy Orozco IN Tech:Kalee TaborOLIVA RT(R)(N) Ht: 6 ft 2 in Wt: 360 lbs HR: 78 bpm BP: 137/80 mmHg BSA: 2.79 m2 Rhythm: NSR TID: 1.26 BMI: 46.2 History: chest pain..soa..palpitations.fatigue...high cholesterol..family hx Procedure: Patient received 0.4 mg of intravenous Lexiscan, resting heart rate 78 bpm, resting blood pressure 137/80 mmHg, with Lexiscan maximum heart rate achieved was 94 bpm which is 85 % of the maximum predicted heart rate and blood pressure was 142/79 mmHg. Cardiac Stress and Resting SPECT Images: Cardiac Stress and Resting SPECT images were obtained using technetium 99m Myoview 31.2 mCi stress and 10.82 mCi at rest. Resting and stress imaging in supine position demonstrate a small-sized, mild, fixed tapered perfusion defect in the basal inferior LV wall. This is no longer visualized with prone stress imaging. Findings are suggestive of diaphragmatic attenuation. There is increased transient ischemic dilatation (TID 1.26), suggestive of possible multivesel disease or balanced ischemia. Gated imaging demonstrates low-normal global and regional LV systolic function. LVEF is calculated at 51% Conclusion: Diaphragmatic attenuation is present. No definite evidence of fixed or reversible perfusion defects. There is increased transient ischemic dilatation (TID 1.26), suggestive of possible multivesel disease or balanced ischemia. Gated imaging demonstrates low-normal global and regional LV systolic function. LVEF is calculated at 51%. Electronically signed by : Niharika Dean, 06/17/2023 20:04:06
--- NOTE | 2023-06-16 10:11 | CA_ITS ---
APPROVED REPORT Exam: Pharmacologic Technologist: Lucy Orozco Ht: 6 ft 2 in Wt: 360 lbs BSA: 2.79 m2 HR: 79 bpm BP: 137/80 mmHg Rhythm: NSR Indications: Dyspnea Medical History Medications: Lisinopril,,,,, Omeprazole,,,,, Aspirin,,,,, Metoprolol,,,,, XaRELTO,,,,, MeLOXICAM,,,,, Olanzapine,,,,, PraZOSIN,,,,, Trazodone,,,,, RoSUVASTATIN,,,,, Ranolazine,,,,, Wagovy,,,,, Stress Test Details Test: LEXISCAN HR Resting HR: 78 bpm Max Heart Rate (APMHR): 170 bpm Max HR Achieved: 94 bpm Target HR (85% APMHR): 145 bpm % of APMHR: 55 Recovery HR: 81 bpm BP Resting BP: 137.0/80.0 mmHg Max BP: 142.0/79.0 mmHg Recovery BP: 129.0/74.0 mmHg ECG Resting ECG: NSR, old septal IN Stress ECG: No ST changes Arrhythmia: None Clinical Exercise duration: 04:03 min Highest Stage Achieved: Stress ECG Conclusion Symptoms: Chest pressure. Arrhythmias/Ectopy: None. ST-T Changes: No significant ST changes. Conclusion: Unremarkable Lexiscan stress test. Myoview images are reported separately. Test Summary REST . . . . . . . Resting REST 04:12 . . 78 . 137/ 80 . . Stage 1 . . . . . . . Myoview Injected Stage 1 01:00 . . 93 . . . . Stage 2 01:00 . . 89 . 142/ 79 . . Stage 3 01:00 . . 90 . . . . Stage 4 01:00 . . 88 . 128/ 80 . . Stage 4 01:03 . . 85 . 128/ 80 . Stop exercise at 04:03 RECOVERY 01:00 . . 89 . . . . RECOVERY 02:00 . . 83 . 135/ 72 . . RECOVERY 03:00 . . 81 . 129/ 74 . . RECOVERY 03:19 . . 85 . 129/ 74 . . Electronically signed by : Niharika Dean, 06/17/2023 19:48:35
== END ==
PROVIDERS: PCP Nurse Practitioner Family; Visit Provider Nurse Practitioner
DX: R06.00 Dyspnea, unspecified (principal); R07.89 Other chest pain; I48.0 Paroxysmal atrial fibrillation; G47.33 Obstructive sleep apnea (adult) (pediatric); E66.01 Morbid (severe) obesity due to excess calories; Z68.42 Body mass index [BMI] 45.0-49.9, adult
CPT/HCPCS: 78452; 93017; A9502; J2785

== ENCOUNTER 2023-07-02 10:48 | Day surgery (SDC) | payer BC, OTHER, SELFPAY ==
[2023-07-02] VITALS (11 sets, daily range): BP systolic 112–155; BP diastolic 68–94; PULSE 77–89; RESP 16–20; O2SAT 92–99; BMI 46.5
--- NOTE | 2023-07-02 07:06 | IR_ITS ---
APPROVED REPORT Patient Location: Outpatient PROCEDURES Left heart catheterization Left ventriculogram Selective coronary angiogram INDICATION Angina pectoris, High risk abnormal Myoview Informed consent was obtained prior to the procedure. COMPLICATIONS None Estimated Blood Loss: Less than 10 ML TECHNIQUE One percent lidocaine used to anesthetize the right anterior aspect of the wrist. The right radial artery was accessed via the Seldinger technique. A 6 [place] sheath was placed in the right radial artery. 2.5 mg of Verapamil, 800 mcg of nitroglycerin, 1mg Lidocaine and 5000 U Heparin were given through the arterial sheath. The papa catheter was also used to perform left heart catheterization, left ventriculogram and selective coronary angiogram. At the end of the procedure the sheath was removed good hemostasis was achieved using Traclet band, patient was transferred to the postop holding area in stable condition. ANGIOGRAPHIC RESULTS The left main artery Normal The left anterior descending artery Proximally normal with mid vessel 20 to 30% stenoses The circumflex artery Nondominant with 20 to 30% mid vessel stenoses The right coronary artery Dominant with proximal and mid vessel 20 to 30% stenoses The SANTANA ventriculogram reveals Normal 65% The left ventricular end-diastolic pressure Severely elevated at 30 mmHg IMPRESSION Mild nonflow limiting coronary artery disease Normal ejection fraction Elevated LVEDP consistent with severe diastolic dysfunction PLAN 1. Treatment of diastolic dysfunction 2. Recommend sleep study 3. Weight loss plus diuretics Electronically signed by : Addison Brady MD 07/02/2023 12:32:40
[2023-07-02 11:38] LABS: MANUAL DIFFERENTIAL MANUAL DIFFERENTIAL (MANUAL DIFF)
[2023-07-02 11:44] LABS: Basophils % 0.4 % (0.1-2.0); Eosinophils # 0.2 K/mm3 (0.0-0.4); Eosinophils % 2.9 % (0.1-12.0); Hematocrit 51.6 % (42.0-52.0); Hemoglobin 16.8 g/dL (14.1-18.0); Lymphocytes # 1.7 K/mm3 (0.7-4.5); Lymphocytes % 25.2 % (10-50); Mean Corpuscular HGB Conc 32.6 g/dL (31.8-35.4); Mean Corpuscular Hemoglobin 30.4 pg (27.0-31.2); Mean Corpuscular Volume 93.2 fl (80-94); Mean Platelet Volume 8.1 fl (7.4-10.4); Monocytes # 0.6 K/mm3 (0.1-1.0); Monocytes % 9.1 % (1.7-9.3); Neutrophils # 4.2 K/mm3 (1.8-7.8); Neutrophils % 62.4 % (37.0-80.0); Platelet Count 198 K/mm3 (142-424); Red Blood Count 5.53 M/mm3 (4.60-6.20); White Blood Count 6.7 K/mm3 (4.8-10.8)
[2023-07-02 11:46] LABS: Anion Gap 14.5 mEq/L (5-15); Blood Urea Nitrogen 16 mg/dl (9-20); Calcium 8.9 mg/dl (8.4-10.2); Carbon Dioxide 28 mmol/L (22.0-30.0); Chloride 101 mmol/L (98-107); Creatinine Clearance Estimated 86 mL/min (50-200); Estimated Glomerular Filt Rate 64 ml/min (>60); GFR (African American) 78 ML/MIN (>60); Glucose 100 mg/dl (74-100); Potassium 4.5 mmoL/L (3.5-5.1); Sodium 139 mmol/L (136-145)
[2023-07-02 12:06] LABS: Eosinophils % 2 % (0-3); Lymphocytes % 30 % (10-50); Monocytes % 4 % (2-9); Neutrophils % 64 % (42-76); Platelet Estimate Normal; RBC Morphology Normal; Total Cells Counted 100
== END 2023-07-02 15:07 | disposition home or self-care (01) ==
PROVIDERS: PCP Nurse Practitioner Family; Visit Provider Internal Medicine
DX: I48.91 Unspecified atrial fibrillation (principal); Z79.899 Other long term (current) drug therapy; Z79.01 Long term (current) use of anticoagulants; I25.10 Atherosclerotic heart disease of native coronary artery without angina pectoris; R94.39 Abnormal result of other cardiovascular function study; E66.01 Morbid (severe) obesity due to excess calories; G47.33 Obstructive sleep apnea (adult) (pediatric); Z68.42 Body mass index [BMI] 45.0-49.9, adult
CPT/HCPCS: 80048; 85007; 85014; 85018; 85048; 85049; 93270; 93458; 99152; C1725; C1760; C1769; J1644; J2405; Q9967

== ENCOUNTER → 2023-07-10 13:38 | Outpatient (CLI) | payer BC, OTHER, SELFPAY ==
[2023-07-10 14:13] LABS: Anion Gap 13.5 mEq/L (5-15); Blood Urea Nitrogen 21 mg/dl (9-20); Calcium 8.8 mg/dl (8.4-10.2); Carbon Dioxide 30 mmol/L (22.0-30.0); Chloride 95 mmol/L (98-107); Estimated Glomerular Filt Rate 58 ml/min (>60); GFR (African American) 71 ML/MIN (>60); Glucose 109 mg/dl (74-100); Magnesium 1.8 mg/dl (1.6-2.3); Potassium 4.5 mmoL/L (3.5-5.1); Sodium 134 mmol/L (136-145)
== END ==
PROVIDERS: PCP Nurse Practitioner Family; Visit Provider Physician Assistant
DX: R25.2 Cramp and spasm (principal); Z51.81 Encounter for therapeutic drug level monitoring; Z79.899 Other long term (current) drug therapy
CPT/HCPCS: 36415; 80048; 83735

== ENCOUNTER 2023-07-17 20:40 | Emergency (ER) | payer BC, OTHER, SELFPAY ==
[2023-07-17] VITALS (7 sets, daily range): BP systolic 117–131; BP diastolic 68–79; PULSE 95–101; RESP 18–20; TEMP 37; O2SAT 97–99; BMI 46.2
--- NOTE | 2023-07-17 20:40 | ECG_ITS ---
APPROVED REPORT Exam: Resting ECG HR:101 bpm ECG Measurements Heart Rate 101 AXES [place] 157 P 39 QRSd 111 QRS 46 QT 312 T -12 QTc 370 Conclusion SINUS TACHYCARDIA MODERATE INTRAVENTRICULAR CONDUCTION DELAY [110+ ms QRS DURATION] NONSPECIFIC T-WAVE ABNORMALITY ABNORMAL RHYTHM ECG UNCONFIRMED REPORT Electronically signed by : James Mcmahon MD 07/18/2023 09:51:15
--- NOTE | 2023-07-17 20:58 | XR_ITS ---
PROCEDURE INFORMATION: Exam: XR Chest Exam date and time: 07/17/2023 9:16 PM Age: 52 years old Clinical indication: Angina; Additional info: Chest pain TECHNIQUE: Imaging protocol: Radiologic exam of the chest. Views: 2 views. COMPARISON: CR XR CHEST 2V 06/26/2021 2:40 PM FINDINGS: Tubes, catheters and devices: Neural stimulation device overlies the lower thoracic spine. Lungs: Unremarkable. No consolidation. Pleural spaces: Unremarkable. No pleural effusion. No pneumothorax. Heart/Mediastinum: Unremarkable. No cardiomegaly. Bones/joints: Unremarkable. IMPRESSION: No acute findings.
[2023-07-17 21:09] LABS: Basophils # 0.1 K/mm3 (0-0.2); Basophils % 0.5 % (0.1-2.0); Eosinophils # 0.2 K/mm3 (0.0-0.4); Eosinophils % 1.7 % (0.1-12.0); Hematocrit 51.5 % (42.0-52.0); Hemoglobin 16.7 g/dL (14.1-18.0); Lymphocytes # 2.3 K/mm3 (0.7-4.5); Mean Corpuscular HGB Conc 32.5 g/dL (31.8-35.4); Mean Corpuscular Hemoglobin 30.2 pg (27.0-31.2); Mean Corpuscular Volume 93.2 fl (80-94); Mean Platelet Volume 8.2 fl (7.4-10.4); Monocytes # 0.7 K/mm3 (0.1-1.0); Monocytes % 7.3 % (1.7-9.3); Neutrophils # 6.8 K/mm3 (1.8-7.8); Neutrophils % 67.5 % (37.0-80.0); Platelet Count 267 K/mm3 (142-424); Red Blood Count 5.52 M/mm3 (4.60-6.20); Red Cell Distribution Width 13.3 % (11.5-17.5)
[2023-07-17 21:11] LABS: Chloride 99 mmol/L (98-107); Potassium 4.5 mmoL/L (3.5-5.1); Sodium 136 mmol/L (136-145)
[2023-07-17 21:14] LABS: Alanine Aminotransferase 53 U/L (12-78); Albumin Level 4.5 g/dl (3.5-5.0); Albumin/Globulin Ratio 1.3 (1.1-1.8); Alkaline Phosphatase 69 U/L (38-126); Anion Gap 15.5 mEq/L (5-15); Aspartate Amino Transferase 43 U/L (17-59); Bilirubin,Total 0.5 mg/dl (0.2-1.3); Blood Urea Nitrogen 23 mg/dl (9-20); Carbon Dioxide 26 mmol/L (22.0-30.0); Creatinine Clearance Estimated 73 mL/min (50-200); Estimated Glomerular Filt Rate 54 ml/min (>60); GFR (African American) 65 ML/MIN (>60); Globulin 3.4 g/dL (1.3-3.2); Total Protein,Serum 7.9 g/dl (6.3-8.2)
[2023-07-17 21:15] LABS: Glucose 140 mg/dl (74-100)
[2023-07-17 21:29] LABS: Troponin I < 0.01 ng/ml (0.00-0.034)
--- NOTE | 2023-07-17 22:49 | HMH.EDGENADL ---
Discharge Plan Disposition Patient Disposition: Home, Self-Care Chief Complaint: Chest Pain Prescriptions Prescriptions: No Action meloxicam 15 mg tablet 15 mg PO DAILY PRN (Reason: Moderate Pain) aspirin [Adult Low Dose Aspirin] 81 mg tablet,delayed release (DR/EC) 81 mg PO DAILY Qty: 90 3RF metoprolol succinate 25 mg tablet extended release 24 hr 25 mg PO QHS Qty: 90 3RF Rx Instructions: take at night rosuvastatin 20 mg tablet 20 mg PO DAILY Qty: 30 5RF lisinopril 20 mg tablet See Rx Instructions .ROUTE .COMPLEX Rx Instructions: TAKE ONE (1) TABLET BY MOUTH EVERY DAY omeprazole 40 mg capsule,delayed release(DR/EC) See Rx Instructions .ROUTE .COMPLEX Rx Instructions: TAKE ONE (1) CAPSULE BY MOUTH ONCE DAILY ranolazine 500 mg tablet extended release 12 hr See Rx Instructions .ROUTE .COMPLEX Rx Instructions: TAKE 1 TABLET BY MOUTH TWICE DAILY Xarelto 20 mg tablet 20 mg PO DAILY Rx Instructions: must administer with evening meal Wegovy 0.5 mg/0.5 mL pen injector 0.5 mg SQ WEEKLY Rx Instructions: administer weeks 5 through 8 of therapy furosemide [Lasix] 40 mg Tablet 40 mg PO BID Qty: 60 3RF spironolactone [Aldactone] 50 mg Tablet 50 mg PO BID Qty: 60 3RF Referrals Follow up/Referrals: Deborah Calhoun APRN [Primary Care Provider] - See instructions Activity Restrictions/Add. Instructions Additional Instructions/Restrictions: At this time is safe to be discharged home. If new or worsening symptoms please do not hesitate to return the emergency department. Please call and schedule follow-up with Dr. Brady as soon as you are able for possible adjustment of your diuretics. Clinical Impressions Clinical Impression: Chest pain Discharge ED Provider: Sadiq Saleh General Adult HPI <Dharmesh Gurrola MD - Last Filed: 07/17/23 23:19> General Chief complaint: Chest Pain Stated complaint: Chest Pain Time Seen by Provider: 07/17/23 22:36 Mode of Arrival: Ambulatory Source of Information: Patient Limitations: No Limitations Description of Symptoms (Recalled from ER Triage Doc. by RN): 52 yo M presents to ED with chest pain intermittently for 3 days. Patient reports heart cath on jul 02 that resulted in severe vent. pressure, fluid around the heart and distolic dysfunction. Patient states no stents were placed. History of Present Illness HPI narrative: Patient is a 52-year-old male with past medical history of heart failure with diastolic dysfunction, previous heart cath on July 02 who presents emergency department for evaluation of chest pain. Patient has had intermittent substernal chest pain chronically. Earlier this evening patient had substernal chest pain that was more severe than normal with associated transient diaphoresis and shortness of breath. It is substernal, does not radiate. Patient states he was started on multiple diuretics as there was fluid around his heart for which he has been compliant. No other acute complaints at this time. Related Data Home Medications Medication Instructions Recorded Confirmed meloxicam 15 mg tablet 15 mg PO DAILY PRN Moderate Pain 04/06/21 07/10/23 lisinopril 20 mg tablet See Rx Instructions .Route 07/02/23 07/10/23 .COMPLEX heart rate omeprazole 40 mg capsule,delayed See Rx Instructions .Route 07/02/23 07/10/23 release .COMPLEX GERD ranolazine 500 mg tablet,extended See Rx Instructions .Route 07/02/23 07/10/23 release,12 hr .COMPLEX . rivaroxaban 20 mg tablet (Xarelto) 20 mg PO DAILY afib 07/02/23 07/10/23 semaglutide (weight loss) 0.5 0.5 mg SQ WEEKLY Weight Loss 07/02/23 07/10/23 mg/0.5 mL subcutaneous pen injector (Wegovy) Previous Rx's Medication Instructions Recorded aspirin 81 mg tablet,delayed 81 mg PO DAILY HEART HEALTH #90 05/01/23 release (Adult Low Dose Aspirin) tabs metoprolol succinate 25 mg 25 mg PO QHS Hypertension #90
[2023-07-17 23:06] LABS: D-Dimer 0.72 ug/mL (0.0-0.5)
[2023-07-18 00:03] LABS: Troponin I < 0.01 ng/ml (0.00-0.034)
[2023-07-18 00:57] VITALS: BP 112/75; PULSE 83; RESP 23; TEMP 36.8; O2SAT 99
== END 2023-07-18 00:58 | disposition home or self-care (01) ==
PROVIDERS: Emergency Medicine; Emergency Provider Emergency Medicine; PCP Nurse Practitioner Family
DX: R07.9 Chest pain, unspecified (principal); R06.02 Shortness of breath; R61 Generalized hyperhidrosis; I48.91 Unspecified atrial fibrillation; I20.9 Angina pectoris, unspecified; G47.33 Obstructive sleep apnea (adult) (pediatric)
CPT/HCPCS: 71046; 80053; 84484; 85025; 85378; 93005; 99285

== ENCOUNTER → 2023-07-24 11:09 | Outpatient (CLI) | payer BC, OTHER, SELFPAY ==
[2023-07-24 12:53] LABS: Anion Gap 14.7 mEq/L (5-15); Blood Urea Nitrogen 14 mg/dl (9-20); Calcium 9.1 mg/dl (8.4-10.2); Carbon Dioxide 26 mmol/L (22.0-30.0); Chloride 100 mmol/L (98-107); Estimated Glomerular Filt Rate 64 ml/min (>60); GFR (African American) 78 ML/MIN (>60); Glucose 143 mg/dl (74-100); Potassium 4.7 mmoL/L (3.5-5.1); Sodium 136 mmol/L (136-145)
== END ==
PROVIDERS: PCP Nurse Practitioner Family; Visit Provider Physician Assistant
DX: E78.5 Hyperlipidemia, unspecified (principal); I10 Essential (primary) hypertension; I25.10 Atherosclerotic heart disease of native coronary artery without angina pectoris; I48.0 Paroxysmal atrial fibrillation; R00.0 Tachycardia, unspecified; R42 Dizziness and giddiness
CPT/HCPCS: 36415; 80048; 83036

== ENCOUNTER → 2023-08-06 13:51 | Outpatient (CLI) | payer BC, OTHER, SELFPAY ==
[2023-08-06 14:44] LABS: Anion Gap 16.3 mEq/L (5-15); Blood Urea Nitrogen 16 mg/dl (9-20); Calcium 9.6 mg/dl (8.4-10.2); Carbon Dioxide 28 mmol/L (22.0-30.0); Chloride 97 mmol/L (98-107); Estimated Glomerular Filt Rate 64 ml/min (>60); GFR (African American) 78 ML/MIN (>60); Glucose 100 mg/dl (74-100); Potassium 4.3 mmoL/L (3.5-5.1); Sodium 137 mmol/L (136-145)
== END ==
PROVIDERS: Internal Medicine; PCP Nurse Practitioner Family; Visit Provider Internal Medicine
DX: I48.0 Paroxysmal atrial fibrillation (principal); R00.0 Tachycardia, unspecified; I25.10 Atherosclerotic heart disease of native coronary artery without angina pectoris; I10 Essential (primary) hypertension; R55 Syncope and collapse; E78.5 Hyperlipidemia, unspecified; G47.33 Obstructive sleep apnea (adult) (pediatric); Z87.891 Personal history of nicotine dependence; E66.01 Morbid (severe) obesity due to excess calories; Z68.42 Body mass index [BMI] 45.0-49.9, adult
CPT/HCPCS: 36415; 80048

== ENCOUNTER 2023-09-03 14:57 | Emergency (ER) | payer BC, OTHER, SELFPAY ==
[2023-09-03] VITALS (9 sets, daily range): BP systolic 119–142; BP diastolic 63–78; PULSE 71–96; RESP 18–24; TEMP 36.7; O2SAT 96–99; BMI 43.5
--- NOTE | 2023-09-03 15:00 | ECG_ITS ---
APPROVED REPORT Exam: Resting ECG HR:90 bpm ECG Measurements Heart Rate 90 AXES [place] 162 P 44 QRSd 101 QRS 80 QT 356 T 14 QTc 403 Conclusion SINUS RHYTHM LOW QRS VOLTAGE IN PRECORDIAL LEADS [QRS DEFLECTION < 1.0 mV IN CHEST LEADS] BORDERLINE ECG UNCONFIRMED REPORT Electronically signed by : James Mcmahon MD 09/03/2023 21:11:20
--- NOTE | 2023-09-03 15:25 | PC.NURSE ---
Dr. Aguirre at [facility] for pt eval
--- NOTE | 2023-09-03 15:36 | CT_ITS ---
PROCEDURE INFORMATION: Exam: CTA Chest With Contrast Exam date and time: 09/03/2023 5:29 PM Age: 52 years old Clinical indication: Pain; Chest pressure; Additional info: Cp, presyncope TECHNIQUE: Imaging protocol: Computed tomographic angiography of the chest with contrast. Exam focused on the arteries. 3D rendering (Not supervised by radiologist): MIP and/or 3D reconstructed images were created by the technologist. Radiation optimization: All CT scans at this facility use at least one of these dose optimization techniques: automated exposure control; mA and/or kV adjustment per patient size (includes targeted exams where dose is matched to clinical indication); or iterative reconstruction. Contrast material: ISO 370; Contrast volume: 75 ml; Contrast route: INTRAVENOUS (IV); REPORTING DATA: Count of CT and Cardiac NM exams in prior 12 months: This patient has received 0 known CTs and 0 known cardiac nuclear medicine studies in the 12 months prior to the current study. COMPARISON: CT ANGIO CHEST PE PROTOCOL 06/26/2021 8:28 PM FINDINGS: Tubes, catheters and devices: Neurostimulator leads terminating within the thoracic spinal canal. Pulmonary arteries: Normal. No pulmonary emboli. Aorta: Unremarkable. No aortic aneurysm. No aortic dissection. Lungs: Unremarkable. No consolidation. No masses. Pleural spaces: Mild extrapleural fat. No pneumothorax. No pleural effusion. Heart: Cardiomegaly. Trace pericardial effusion. Coronary arteries: Minimal coronary artery calcifications. Lymph nodes: Unremarkable. No enlarged lymph nodes. Bones/joints: Unremarkable. No acute fracture. Soft tissues: Unremarkable. IMPRESSION: No pulmonary artery embolism.
--- NOTE | 2023-09-03 15:39 | HMH.EDGENADL ---
Discharge Plan Disposition Patient Disposition: Home, Self-Care Condition: Good Prescriptions Prescriptions: No Action multivitamin [Multiple Vitamins] Tablet 1 tab PO DAILY testosterone 20.25 mg/1.25 gram (1.62 %) gel in metered-dose pump 4 pump topical DAILY metoprolol succinate [Toprol XL] 50 mg tablet extended release 24 hr 50 mg PO DAILY Qty: 30 5RF Entresto 49-51 mg tablet 1 tab PO BID Qty: 60 5RF aspirin [Adult Low Dose Aspirin] 81 mg tablet,delayed release (DR/EC) 81 mg PO DAILY Qty: 90 3RF rosuvastatin 20 mg tablet 20 mg PO DAILY Qty: 30 5RF Wegovy 0.25 mg/0.5 mL pen injector See Rx Instructions .ROUTE .COMPLEX Qty: 2 1RF Dose Instruction: INJECT 0.25 MG (0.5 ML) SUBCUTANEOUSLY (UNDER THE SKIN) WEEKLY. ADMINISTER WEEKS ONE (1) THROUGH FOUR (4) OF THERAPY Rx Instructions: INJECT 0.25 MG (0.5 ML) SUBCUTANEOUSLY (UNDER THE SKIN) WEEKLY. ADMINISTER WEEKS ONE (1) THROUGH FOUR (4) OF THERAPY furosemide [Lasix] 40 mg tablet 40 mg PO DAILY Qty: 30 3RF omeprazole 40 mg capsule,delayed release(DR/EC) See Rx Instructions .ROUTE .COMPLEX Rx Instructions: TAKE ONE (1) CAPSULE BY MOUTH ONCE DAILY ranolazine 500 mg tablet extended release 12 hr See Rx Instructions .ROUTE .COMPLEX Rx Instructions: TAKE 1 TABLET BY MOUTH TWICE DAILY Xarelto 20 mg tablet 20 mg PO DAILY Rx Instructions: must administer with evening meal spironolactone [Aldactone] 50 mg Tablet 50 mg PO BID Qty: 60 3RF Referrals Follow up/Referrals: Deborah Calhoun APRN [Primary Care Provider] - See instructions Activity Restrictions/Add. Instructions Additional Instructions/Restrictions: You were evaluated in the emergency department today. Please follow-up closely with your primary care provider and french binder. Your potassium was slightly elevated, so I recommend having this rechecked by them over the next 24 to 48 hours. Return to the emergency department for any new or worsening symptoms. Clinical Impressions Clinical Impression: Pre-syncope, Hyperkalemia, Creatinine elevation Instructions Patient Instructions: DI for Syncope in Adults (Fainting), DI for Atypical Chest Pain, DI for Hyperkalemia Discharge ED Provider: Sadiq Saleh General Adult HPI General Chief complaint: Syncope Stated complaint: syncope Time Seen by Provider: 09/03/23 15:20 Mode of Arrival: EMS Source of Information: Patient Limitations: No Limitations Description of Symptoms (Recalled from ER Triage Doc. by RN): pt had an episode today of sweatiness and weakness while sitting on tailgate of truck, pt denies any recent fall or trauma , per ems fbs was 118 and ems gave 4 mg zofran History of Present Illness HPI narrative: This patient is a 52-year-old male with a history of paroxysmal atrial fibrillation, hypertension, hyperlipidemia, CAD, morbid obesity, MICHELLE, unstable angina, and diastolic dysfunction presenting to the emergency department for evaluation with concern for chest pain and presyncope. Patient reports that he has had 2 prior episodes of presyncope, first 1 being approximately 8 months ago and the last one being in May, and he notes that this prompted extensive cardiac work-up by Dr. Brady. He states that he has been seen multiple times and had multiple tests done, including cardiac catheterization in May, and he states that he was diagnosed with diastolic dysfunction. He states that he had been placed on medications, including Lasix, metoprolol, and Xarelto, and he was having improvement. He states over the last few days, he has been more active than usual, but today he woke up feeling very tired. 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 He states that his vision went out, he felt extremely lightheaded, and he felt like hi
[2023-09-03 15:50] LABS: Basophils % 0.3 % (0.1-2.0); Eosinophils # 0.1 K/mm3 (0.0-0.4); Hematocrit 47.6 % (42.0-52.0); Hemoglobin 16.4 g/dL (14.1-18.0); Lymphocytes # 1.7 K/mm3 (0.7-4.5); Lymphocytes % 15.7 % (10-50); Mean Corpuscular HGB Conc 34.5 g/dL (31.8-35.4); Mean Corpuscular Hemoglobin 32.6 pg (27.0-31.2); Mean Corpuscular Volume 94.4 fl (80-94); Mean Platelet Volume 8.5 fl (7.4-10.4); Monocytes # 0.7 K/mm3 (0.1-1.0); Monocytes % 6.6 % (1.7-9.3); Neutrophils # 8.5 K/mm3 (1.8-7.8); Neutrophils % 76.4 % (37.0-80.0); Platelet Count 245 K/mm3 (142-424); Red Blood Count 5.05 M/mm3 (4.60-6.20); Red Cell Distribution Width 13.4 % (11.5-17.5); White Blood Count 11.2 K/mm3 (4.8-10.8)
[2023-09-03 15:54] LABS: Chloride 101 mmol/L (98-107)
[2023-09-03 15:55] LABS: Potassium 5.4 mmoL/L (3.5-5.1); Sodium 136 mmol/L (136-145)
[2023-09-03 15:57] LABS: Alanine Aminotransferase 46 U/L (12-78); Alkaline Phosphatase 63 U/L (38-126); Anion Gap 13.4 mEq/L (5-15); Aspartate Amino Transferase 42 U/L (17-59); Bilirubin,Total 0.4 mg/dl (0.2-1.3); Blood Urea Nitrogen 17 mg/dl (9-20); Carbon Dioxide 27 mmol/L (22.0-30.0); Creatinine Clearance Estimated 71 mL/min (50-200); Estimated Glomerular Filt Rate 54 ml/min (>60); GFR (African American) 65 ML/MIN (>60)
[2023-09-03 15:58] LABS: Albumin Level 4.7 g/dl (3.5-5.0); Albumin/Globulin Ratio 1.5 (1.1-1.8); Globulin 3.2 g/dL (1.3-3.2); Glucose 117 mg/dl (74-100); Magnesium 1.8 mg/dl (1.6-2.3); Total Protein,Serum 7.9 g/dl (6.3-8.2)
[2023-09-03 16:11] LABS: Troponin I < 0.01 ng/ml (0.00-0.034)
[2023-09-03 16:29] LABS: Thyroid Stimulating Hormone 5.37 uIU/mL (0.465-4.68)
[2023-09-03 16:56] LABS: T4 (Thyroxine) 11.1 ug/dl (5.53-11.0)
--- NOTE | 2023-09-03 17:40 | PC.NURSE ---
pt in CT scan, family waiting on room, no needs at this time
--- NOTE | 2023-09-03 17:43 | PC.NURSE ---
Pt returned from RAD
[2023-09-03 19:02] LABS: Troponin I < 0.01 ng/ml (0.00-0.034)
[2023-09-03 19:28] LABS: Microscopic, Urine URINE MICROSCOPIC (MICROSCOPIC)
[2023-09-03 19:29] LABS: Appearance,Urine CLEAR (Clear); Bilirubin,Urine Negative (Negative); Blood, Urine Negative (Negative); Color,Urine YELLOW (Yellow); Glucose,Urine (UA) Negative (Negative); Ketones,Urine Negative (Negative); Leukocyte Esterase,Urine Negative (Negative); Nitrate,Urine Negative (Negative); Protein,Urine Negative (Negative); Urobilinogen,Urine 0.2 EU/dl (0.2)
== END 2023-09-03 20:34 | disposition home or self-care (01) ==
PROVIDERS: Emergency Medicine; Emergency Provider Emergency Medicine; PCP Nurse Practitioner Family
DX: R07.89 Other chest pain (principal); E87.5 Hyperkalemia; R55 Syncope and collapse; R79.89 Other specified abnormal findings of blood chemistry; I48.0 Paroxysmal atrial fibrillation; I25.119 Atherosclerotic heart disease of native coronary artery with unspecified angina pectoris; E66.01 Morbid (severe) obesity due to excess calories; I51.89 Other ill-defined heart diseases; E78.5 Hyperlipidemia, unspecified; Z79.01 Long term (current) use of anticoagulants; Z87.891 Personal history of nicotine dependence; I10 Essential (primary) hypertension
CPT/HCPCS: 71275; 80053; 81001; 83735; 84436; 84443; 84484; 85025; 93005; 96360; 99285; Q9967

== ENCOUNTER 2023-09-28 16:29 | Emergency (ER) | payer BC, SELFPAY ==
--- NOTE | 2023-09-28 16:29 | ECG_ITS ---
APPROVED REPORT Exam: Resting ECG HR:110 bpm ECG Measurements Heart Rate 110 AXES ID 171 P 57 QRSd 106 QRS 89 QT 316 T -16 QTc 381 Conclusion SINUS TACHYCARDIA Late R wave progression Isolated Q in III ABNORMAL ECG UNCONFIRMED REPORT Electronically signed by : James Mcmahon MD 09/29/2023 17:38:38
[2023-09-28 16:32] VITALS: BP 126/68; PULSE 110; RESP 18; TEMP 36.8; O2SAT 97; BMI 42.3
--- NOTE | 2023-09-28 16:45 | XR_ITS ---
PROCEDURE INFORMATION: Exam: XR Chest Exam date and time: 09/28/2023 5:34 PM Age: 52 years old Clinical indication: Other: Chest pain TECHNIQUE: Imaging protocol: Radiologic exam of the chest. Views: 1 view. COMPARISON: CT ANGIO CHEST PE PROTOCOL 09/03/2023 5:29 PM FINDINGS: Lungs: Unremarkable. No consolidation. Pleural spaces: Unremarkable. No pleural effusion. No pneumothorax. Heart/Mediastinum: Unremarkable. No cardiomegaly. Bones/joints: Unremarkable. IMPRESSION: No acute findings.
[2023-09-28 16:57] LABS: Basophils % 0.3 % (0.1-2.0); Eosinophils # 0.1 K/mm3 (0.0-0.4); Hematocrit 48.3 % (42.0-52.0); Hemoglobin 16.2 g/dL (14.1-18.0); Lymphocytes # 1.7 K/mm3 (0.7-4.5); Lymphocytes % 19.3 % (10-50); Mean Corpuscular HGB Conc 33.6 g/dL (31.8-35.4); Mean Corpuscular Hemoglobin 31.5 pg (27.0-31.2); Mean Corpuscular Volume 93.6 fl (80-94); Mean Platelet Volume 7.7 fl (7.4-10.4); Monocytes # 0.6 K/mm3 (0.1-1.0); Monocytes % 6.9 % (1.7-9.3); Neutrophils # 6.5 K/mm3 (1.8-7.8); Neutrophils % 72.5 % (37.0-80.0); Platelet Count 241 K/mm3 (142-424); Red Blood Count 5.16 M/mm3 (4.60-6.20); Red Cell Distribution Width 13.6 % (11.5-17.5)
[2023-09-28 16:59] LABS: Chloride 99 mmol/L (98-107); Potassium 3.8 mmoL/L (3.5-5.1); Sodium 136 mmol/L (136-145)
[2023-09-28 17:00] VITALS: BP 104/48; PULSE 108; RESP 22; O2SAT 93
[2023-09-28 17:01] LABS: Blood Urea Nitrogen 19 mg/dl (9-20); Creatinine Clearance Estimated 73 mL/min (50-200); Estimated Glomerular Filt Rate 54 ml/min (>60); GFR (African American) 65 ML/MIN (>60)
[2023-09-28 17:02] LABS: Alanine Aminotransferase 44 U/L (12-78); Albumin Level 4.5 g/dl (3.5-5.0); Albumin/Globulin Ratio 1.5 (1.1-1.8); Alkaline Phosphatase 49 U/L (38-126); Anion Gap 8.8 mEq/L (5-15); Aspartate Amino Transferase 36 U/L (17-59); Bilirubin,Total 0.6 mg/dl (0.2-1.3); Carbon Dioxide 32 mmol/L (22.0-30.0); Globulin 3.1 g/dL (1.3-3.2); Glucose 100 mg/dl (74-100); Total Protein,Serum 7.6 g/dl (6.3-8.2)
--- NOTE | 2023-09-28 17:10 | HMH.EDCP ---
Discharge Plan Disposition Patient Disposition: Home, Self-Care Prescriptions Prescriptions: No Action multivitamin [Multiple Vitamins] Tablet 1 tab PO DAILY testosterone 20.25 mg/1.25 gram (1.62 %) gel in metered-dose pump 4 pump topical DAILY fluoxetine 10 mg capsule 10 mg PO DAILY metoprolol succinate [Toprol XL] 50 mg tablet extended release 24 hr 50 mg PO DAILY Qty: 30 5RF Entresto 49-51 mg tablet 1 tab PO BID Qty: 60 5RF aspirin [Adult Low Dose Aspirin] 81 mg tablet,delayed release (DR/EC) 81 mg PO DAILY Qty: 90 3RF rosuvastatin 20 mg tablet 20 mg PO DAILY Qty: 30 5RF Wegovy 0.25 mg/0.5 mL pen injector See Rx Instructions .ROUTE .COMPLEX Qty: 2 1RF Dose Instruction: INJECT 0.25 MG (0.5 ML) SUBCUTANEOUSLY (UNDER THE SKIN) WEEKLY. ADMINISTER WEEKS ONE (1) THROUGH FOUR (4) OF THERAPY Rx Instructions: INJECT 0.25 MG (0.5 ML) SUBCUTANEOUSLY (UNDER THE SKIN) WEEKLY. ADMINISTER WEEKS ONE (1) THROUGH FOUR (4) OF THERAPY furosemide [Lasix] 40 mg tablet 40 mg PO DAILY Qty: 30 3RF omeprazole 40 mg capsule,delayed release(DR/EC) See Rx Instructions .ROUTE .COMPLEX Rx Instructions: TAKE ONE (1) CAPSULE BY MOUTH ONCE DAILY ranolazine 500 mg tablet extended release 12 hr See Rx Instructions .ROUTE .COMPLEX Rx Instructions: TAKE 1 TABLET BY MOUTH TWICE DAILY Xarelto 20 mg tablet 20 mg PO DAILY Rx Instructions: must administer with evening meal spironolactone [Aldactone] 50 mg Tablet 50 mg PO BID Qty: 60 3RF Referrals Follow up/Referrals: Deborah Calhoun APRN [Primary Care Provider] - See instructions Activity Restrictions/Add. Instructions Additional Instructions/Restrictions: No acute cardiopulmonary emergency was identified please continue to follow-up with your primary care doctor or your door paneler as indicated. Clinical Impressions Clinical Impression: Chronic dyspnea, Tachycardia Discharge ED Provider: Yao Hyman [facility] General Chief Complaint: Chest Pain Stated Complaint: cp Time Seen by Provider: 09/28/23 16:59 Mode of Arrival: Ambulatory Source of Information: Patient Limitations: No Limitations Description of Symptoms (Recalled from ER Triage Doc. by RN): PT C/O ELEVATED HR OVER 120 WHILE AT REST AT HOME. STARTED ABOUT 1400. PT RATED CHEST PAIN 4/10. TOOK 325 OF ASA AND 50MG ADDITIONAL METOPROLOL History of Present Illness HPI narrative: Patient is a 52-year-old male followed chronically by door paneler for diastolic dysfunction also has paroxysmal atrial fibrillation on Xarelto has clean coronary vessels with a recent heart cath no stents presenting today with dyspnea and tachycardia with another episode that he had in the past. States that insurance has denied a loop recorder and they have been concerned about a non-perfusing rhythm that occurred during these episodes that have not been captured on the monitor. Patient states he is currently feeling little bit better but still is having some dyspnea. No history of DVT or PE no hemoptysis fevers chills cough or any other complaints. No exertional chest pain. States his heart rate can get up to 150 with minimal activity is currently down to about 100 right now. Related Data Home Medications Medication Instructions Recorded Confirmed omeprazole 40 mg capsule,delayed See Rx Instructions .Route 07/02/23 09/10/23 release .COMPLEX GERD ranolazine 500 mg tablet,extended See Rx Instructions .Route 07/02/23 09/10/23 release,12 hr .COMPLEX . rivaroxaban 20 mg tablet (Xarelto) 20 mg PO DAILY afib 07/02/23 09/10/23 multivitamin (Multiple Vitamins 1 tab PO DAILY 07/23/23 09/10/23 tablet) testosterone 4 pump topical DAILY 07/23/23 09/10/23 fluoxetine 10 mg capsule 10 mg PO DAILY 09/10/23 09/10/23 Previous Rx's Medication Instructions Recorded aspirin 81 mg tablet,delayed 81 mg PO DAILY [employer] #90 05/01/23 release (Adult Low Dose Aspiri
[2023-09-28 17:15] LABS: Troponin I < 0.01 ng/ml (0.00-0.034)
[2023-09-28 17:27] LABS: Magnesium 1.9 mg/dl (1.6-2.3)
[2023-09-28 17:30] VITALS: BP 109/59; PULSE 104; RESP 23; O2SAT 93
[2023-09-28 17:33] LABS: D-Dimer 0.75 ug/mL (0.0-0.5)
[2023-09-28 17:37] LABS: NT Pro Brain Natriuretic Pep. < 20.0 pg/mL (0-125)
[2023-09-28 17:58] LABS: Thyroid Stimulating Hormone 1.63 uIU/mL (0.465-4.68)
[2023-09-28 18:00] VITALS: BP 108/60; PULSE 98; RESP 23; O2SAT 95
[2023-09-28 18:30] VITALS: BP 115/78; PULSE 93; RESP 19; O2SAT 93
[2023-09-28 18:57] VITALS: BP 148/82; PULSE 84; RESP 20; TEMP 36.7; O2SAT 97
== END 2023-09-28 18:59 | disposition home or self-care (01) ==
PROVIDERS: Emergency Provider Student in an Organized Health Care Education/Training Program; PCP Nurse Practitioner Family
DX: R06.00 Dyspnea, unspecified (principal); R00.0 Tachycardia, unspecified; I48.0 Paroxysmal atrial fibrillation; G47.33 Obstructive sleep apnea (adult) (pediatric); E66.01 Morbid (severe) obesity due to excess calories; Z87.891 Personal history of nicotine dependence
CPT/HCPCS: 71045; 80053; 83735; 83880; 84443; 84484; 85025; 85378; 93005; 99285

== ENCOUNTER 2023-10-01 07:48 | Day surgery (SDC) | payer BC, SELFPAY ==
[2023-10-01 07:49] VITALS: BMI 43.0
[2023-10-01 08:07] VITALS: BP 142/77; PULSE 60; PULSE 71; RESP 20; O2SAT 97
[2023-10-01 08:23] VITALS: BP 186/88; PULSE 66; RESP 17; O2SAT 97
--- NOTE | 2023-10-01 09:28 | EXP.LOOP ---
[facility] Loop Recorder Date: 10/01/23 Time: 08:20 Procedure Performed:: Implantation of loop recorder Indication:: Syncopal episodes Technique:: Patient was brought to the cardiac [employer]. After informed consent obtained, 1% lidocaine with epinephrine was used to anesthetize the site along the left anterior aspect of the chest near the sternal border. Using the preformed scalpel, an incision was made and using the supplied preloaded apparatus, the loop recorder was placed subcutaneously without difficulty. Following the deployment of the loop recorder interrogation of the device was performed to ensure appropriate voltage was being detected. Once this was verified, Steri-Strips were placed over the incision and the patient was prepped to discharge home. Patient tolerated the procedure well with minimal discomfort. Impression:: Successful implantation of loop recorder Serial Number:: Du model number [id number] Serial #[id number] Plan:: Routine postop care
== END 2023-10-01 08:38 | disposition home or self-care (01) ==
PROVIDERS: PCP Nurse Practitioner Family; Visit Provider Internal Medicine
DX: R55 Syncope and collapse (principal); Z79.899 Other long term (current) drug therapy; I48.0 Paroxysmal atrial fibrillation; Z87.891 Personal history of nicotine dependence; I10 Essential (primary) hypertension; E66.01 Morbid (severe) obesity due to excess calories; Z68.41 Body mass index [BMI] 40.0-44.9, adult
CPT/HCPCS: 33285; C1764

== ENCOUNTER 2023-11-24 09:36 | Outpatient (CLI) | payer BC, SELFPAY | END 2023-11-24 23:59 | LOC: RT 09:38 | PROVIDERS: PCP Nurse Practitioner Family; Visit Provider Nurse Practitioner Family | DX: R55 Syncope and collapse (principal); G93.40 Encephalopathy, unspecified | CPT/HCPCS: 95819 ==

== ENCOUNTER 2024-02-26 17:11 | Outpatient (CLI) | payer BC, SELFPAY ==
--- NOTE | 2024-02-26 17:20 | XR_ITS ---
PROCEDURE INFORMATION: Exam: XR Sacrum and Coccyx, 2 or More Views Exam date and time: 02/26/2024 5:22 PM Age: 53 years old Clinical indication: Pain in coccyx area; Additional info: Pain x few weeks. TECHNIQUE: Imaging protocol: XR of the sacrum and coccyx, 2 or more views. COMPARISON: SPLUMBWO CT lumbar spine wo con 05/15/2018 10:37 AM FINDINGS: Bones/joints: No fractures. Minimal osteoarthritic hypertrophy at the sacrococcygeal junction. Question mild degenerative spurring at the sacrococcygeal junction. Slight joint space narrowing and minimal listhesis of less than 1 mm between the 1st and 2nd coccygeal segments, favor degenerative. Transitional lumbosacral segment designated a lumbarized S1 with broad sclerotic/hypertrophic right-sided transitional interface which is stable in appearance from 05/15/2018, demonstrating solid bony ankylosis across the interface on the prior CT. SI joints and pubic symphysis are unremarkable. Visualized hip joint spaces are unremarkable. Soft tissues: Normal. Other findings: Stimulator unit projecting over the right iliac/gluteal distribution with leads extending into the lumbar region off the upper edge of the image without gross complication. IMPRESSION: 1. No acute findings. 2. Minimal osteoarthritic changes at the sacrococcygeal junction and C1-C2 intercoccygeal space. 3. Transitional lumbosacral segment.
== END 2024-02-26 23:59 | disposition home or self-care (01) ==
LOC: RAD 17:14
PROVIDERS: PCP Nurse Practitioner Family; Visit Provider Nurse Practitioner Family
DX: M53.3 Sacrococcygeal disorders, not elsewhere classified (principal)
CPT/HCPCS: 72220

== ENCOUNTER 2024-05-28 09:58 | Outpatient (CLI) | payer BC, SELFPAY ==
--- NOTE | 2024-05-28 09:59 | CA_ITS ---
APPROVED REPORT EXAM: Comprehensive 2D, Doppler, and color-flow Echocardiogram Director Of Managed Care: Loreto Long CRT Ht: 6 ft 2 in Wt: 299lbs BSA: 2.58 BP: 127/76 mmHg Indications: Chest Pain, Atrial Fibrillation, CAD, DD, MICHELLE, CAD 2D Dimensions LA Volume 45.90 mL LA Volume Index 17.40 mL/m2 (M/F) 16-34 M-Mode Dimensions RVDd 2.85 cm (0.9-2.6) LA Diam 4.26 cm (1.9-4.0) LVDd 6.04 cm (3.5-5.7) LVDs 3.79 cm (3.5-5.7) IVSd 1.47 cm (0.6-1.1) PWd 0.88 cm (0.6-1.1) EF (Teich) 66.30% FS 37.30% EDV (Teich) 182.80 mL TAPSE 3.26 (<1.7) ESV (Teich) 61.60 mL LV Diastology E Decel Time 233 (160-240 msec) E/A Ratio 0.85 MED A' 14.60 cm/s LAT A' 16.10 cm/s Aortic Valve LAWRENCE Index 1.05 cm2/m2 AoV Peak Gama. 175.0 (50-130 cm/s) AO Peak GR. 12.20 mmHg AO Mean GR. 6.70 (<5 mmHg) AO VTI 35.6 (18-25 cm) LAWRENCE (VTI) 2.76 (2.5-4.5 cm2) Mitral Valve MV A Velocity 85.0 (40-130 cm/s) E/A Ratio 0.85 Pulmonary Valve PV Peak Velocity 131.0 (50-150 cm/s) Tricuspid Valve TR P. Velocity 192.00 cm/s RAP Estimate 10.00 mmHg RVSP 24.80 mmHg Left Ventricle The left ventricle is normal size. The left ventricular systolic function is normal. The left ventricular ejection fraction is within the normal range. There is normal left ventricular wall thickness. There is normal LV segmental wall motion. Transmitral Doppler flow pattern suggests impaired LV relaxation. LVEF is 55%. Right Ventricle The right ventricle is normal size. The right ventricular systolic function is normal. Atria The left atrium size is normal. The right atrium size is normal. There is no Doppler evidence of interatrial shunt. Aortic Valve The aortic valve opens well. There is no aortic valvular stenosis. No aortic regurgitation is present. Mitral Valve The mitral valve is normal in structure. No evidence of mitral valve stenosis. There is no mitral valve regurgitation noted. Tricuspid Valve The tricuspid valve leaflets are thin and pliable. Trace tricuspid regurgitation. There is insufficient TR jet to estimate RVSP. Pulmonic Valve The pulmonary valve is normal in structure. Trace pulmonic regurgitation. Great Vessels The aortic root is normal in size. The ascending aorta is normal in size. IVC is normal in size and collapses >50% with inspiration. Pericardium There is no pericardial effusion. Other Information Study Quality: Fair Conclusion Normal biventricular systolic function. No significant valvular stenosis or regurgitation. Electronically signed by : Niharika Dean MD 05/30/2024 22:52:18
== END 2024-05-28 23:59 | disposition home or self-care (01) ==
LOC: RT 09:59
PROVIDERS: PCP Nurse Practitioner Family; Visit Provider Physician Assistant
DX: I51.89 Other ill-defined heart diseases (principal); I50.30 Unspecified diastolic (congestive) heart failure
CPT/HCPCS: 93306

== ENCOUNTER 2024-11-24 12:12 | Outpatient (CLI) | payer BC, SELFPAY ==
[2024-11-24 12:49] LABS: Basophils % 0.4 % (0.1-2.0); Eosinophils # 0.1 K/mm3 (0.0-0.4); Eosinophils % 1.2 % (0.1-12.0); Hematocrit 45.9 % (42.0-52.0); Hemoglobin 15.8 g/dL (14.1-18.0); Lymphocytes # 2.1 K/mm3 (0.7-4.5); Lymphocytes % 28.7 % (10-50); Mean Corpuscular HGB Conc 34.4 g/dL (31.8-35.4); Mean Corpuscular Hemoglobin 30.8 pg (27.0-31.2); Mean Corpuscular Volume 89.5 fl (80-94); Mean Platelet Volume 9.9 fl (7.4-10.4); Monocytes # 0.8 K/mm3 (0.1-1.0); Monocytes % 10.2 % (1.7-9.3); Neutrophils # 4.4 K/mm3 (1.8-7.8); Neutrophils % 59.2 % (37.0-80.0); Platelet Count 262 K/mm3 (142-424); Red Blood Count 5.13 M/mm3 (4.60-6.20); Red Cell Distribution Width 12.8 % (11.5-17.5); White Blood Count 7.4 K/mm3 (4.8-10.8)
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
[2024-11-24 13:25] LABS: Alanine Aminotransferase 34 U/L (12-78); Albumin Level 4.8 g/dl (3.5-5.0); Alkaline Phosphatase 68 U/L (38-126); Anion Gap 15.9 mEq/L (5-15); Aspartate Amino Transferase 31 U/L (17-59); Bilirubin,Direct 0.2 mg/dl (0.0-0.4); Bilirubin,Indirect 0.4 mg/dL (0.0-0.9); Bilirubin,Total 0.6 mg/dl (0.2-1.3); Bilirubin,Unconjugated 0.4 mg/dL (0.0-1.1); Blood Urea Nitrogen 20 mg/dl (9-20); Calcium 9.1 mg/dl (8.4-10.2); Carbon Dioxide 27 mmol/L (22.0-30.0); Chloride 102 mmol/L (98-107); Chol/HDL Ratio 3.2 (1-3.5); Cholesterol 104 mg/dl (140-200); Estimated Glomerular Filt Rate 78 ml/min (>60); GFR (African American) 95 ML/MIN (>60); Glucose 91 mg/dl (74-100); HDL Cholesterol 33 mg/dl (40-60); Magnesium 1.9 mg/dl (1.6-2.3); Potassium 4.9 mmoL/L (3.5-5.1); Sodium 140 mmol/L (136-145); Total Protein,Serum 7.1 g/dl (6.3-8.2); Triglycerides 200 mg/dl (30-150); VLDL Cholesterol 40 mg/dL (0-40)
[2024-11-24 13:36] LABS: Direct LDL Cholesterol 42.88 mg/dL (100-129)
[2024-11-24 13:42] LABS: Free T4 (Free Thyroxine) 1.22 ng/dl (0.78-2.19)
== END 2024-11-24 23:59 | disposition home or self-care (01) ==
PROVIDERS: PCP Nurse Practitioner Family; Visit Provider Physician Assistant
DX: R40.20 Unspecified coma (principal); I51.89 Other ill-defined heart diseases; I48.0 Paroxysmal atrial fibrillation; I25.10 Atherosclerotic heart disease of native coronary artery without angina pectoris; I10 Essential (primary) hypertension; E78.2 Mixed hyperlipidemia; G47.33 Obstructive sleep apnea (adult) (pediatric)
CPT/HCPCS: 36415; 70450; 80048; 80061; 80076; 83735; 84439; 84443; 85025

== ENCOUNTER 2025-03-10 13:50 | Outpatient (CLI) | payer BC, SELFPAY ==
--- OUTSIDE RECORDS SUMMARY | 2025-03-10 13:55 | XMS_ITS | Data Portability ---
Author Organization [place] - [facility] & KAVON Ritter ADMIN Address [address] [place] [id number] Care Team Providers Care Laundry Tech Name Role Phone MIGUEL BRISENO Primary Care Provider Assessment Encounter Date Assessment Date Assessment LastModified by Organization Details LastModified Time 12/17/2023 12/17/2023 Robotic Sleeve All Risks, Complications and Alternatives were explained to the patient. They understand that there are many possible complications that may occur with bariatric surgery including but not limited to; bleeding, infection, staple line leak, injury to solid organ, injury to bowel, injury to bladder, injury to blood vessel, pneumonia, DVT, PE, , cardiac event, stricture, ulcer, non-healing of the staple line. 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 They have also been given an extensive surgical consent that explains these risks and complications and have acknowledged and signed that they understand these. They understand Weight loss surgery is a tool and that compliance is mandatory to not only be successful but to give them the best chance to avoid complications. They understand they must keep all recommended office follow up appointments and laboratory checks Patient will return to clinic for postoperative follow-up 1 week after surgery. [email or web address] Not available 12/17/2023 08:57:33 Plan of Treatment Reminders Order Date Submit Date Provider Last Modified By Organization Details Last Modified Time Details Appointments None recorded. Lab CBC w/ auto diff 02/11/2 024 REMBERT [facility], [address], [address], [place], [address], 04/24/202 4 20:35:51 CMP, serum or plasma 2023 024 KAYA [facility], [address], [address], [place], [address], 4 20:35:52 HbA1c (hemoglobin A1c), blood 2023 024 KAYA [facility], [address], [address], [place], [address], 4 20:35:55 iron + TIBC + ferritin, serum 2023 024 KAYA [facility], [address], [address], [place], [address], 4 20:35:49 folate, serum 2023 024 KAYA [facility], [address], [address], [place], [address], 4 20:35:56 vitamin D, 25-hydroxy, total, serum 2023 024 KAYA [facility], [address], [address], [place], [address], 4 20:35:58 vitamin E, serum 2023 024 KAYA [facility], [address], [address], [place], [address], 4 20:35:54 vitamin A (retinol), serum 2023 024 KAYA [facility], [address], [address], [place], [address], 4 20:35:57 TSH + free T4, serum 2023 024 KAYA [facility], [address], [address], [place], [address], 4 20:35:50 prealbumin, serum 2023 024 KAYA [facility], [address], [address], [place], [address], 4 20:36:00 thiamine, QN, blood 2023 024 KAYA [facility], [address], [address], [place], [address], 4 20:35:59 methylmalon ate, QN, serum or plasma 2023 024 KAYA [facility], [address], [address], [place], [address], 4 20:36:00 lipid panel, serum 2023 024 KAYA [facility], [address], [address], [place], [address], 4 20:35:53 CBC w/ auto diff 2023 024 KAYA [facility], [address], [address], [place], [address], 4 05:39:14 CMP, serum or plasma 2023 024 KAYA [facility], [address], [address], [place], [address], 4 05:39:16 HbA1c (hemoglobin A1c), blood 2023 024 KAYA [facility], [address], [address], [place], [address], 4 05:39:17 CBC w/ auto diff 2022 023 KAYA [facility], [address], [address], [place], [address], 3 14:08:41 CMP, serum or plasma 2022 023 KAYA [facility], [address], [address], [place], [address], 3 16:18:08 HbA1c (hemoglobin A1c), blood 2022 023 [facility], [address], [address], [place], [address], 4 11:24:45 iron + TIBC + ferritin, serum 2022 023 [email or web address] [facility], [address], [address], [place], [address], 4 11:24:45 vitamin D, 25-hydroxy, total, serum 2022 023 [email or web address] [facility], [address], [address], [place], [address], 4 11:24:45 vitamin A (retinol), serum 2022 023 KAYA [facility], [address], [address], [place], [address], 3 19:09:19 vitamin E, serum 2022 023 [facility], [address], [address], [place], [address], 4 11:24:45 PTH (parathyroi d hormone), intact, serum or plasma 2022 023 KAYA [facility], [address], [address], [place], [address], 3 13:11:13 lipid panel, serum 2022 023 [email or web address] [facility], [address], [address], [place], [address], 4 11:24:45 TSH + free T4, serum 2022 023 [email or web address] [facility], [address], [address], [place], [address], 4 11:24:46 folate, serum 2022 023 KAYA [facility], [address], [address], [place], [address], 3 16:19:07 methylmalon ate, QN, serum or plasma 2022 023 [email or web address] [facility], [address], [address], [place], [address], 4 11:24:46 thiamine, QN, blood 2022 023 [email or web address] [facility], [address], [address], [place], [address], 4 11:24:46 Referral None recorded. Procedures None recorded. Surgeries esophagogas troduodenos copy (SURG) 2022 024 [email or web address] Micheal Archuleta, [address], [address], [place], [address], 4 14:50:26 Imaging XR, chest, 2 view 2022 023 [facility] [address], [place], [address], 4 13:55:47 electrocard iogram, routine ECG, 12 leads min 2022 023 [email or web address] Not available 4 11:26:06 Medication Orders thiamine HCl (vitamin B1) 100 mg/mL injection solution 2023 024 Not available 4 09:09:53 cyanocobala min (vit B-12) 1,000 mcg/mL injection solution 2023 024 [email or web address] Not available 4 09:08:27 Neurontin 300 mg capsule 2023 024 [email or web address] [facility] - [address], [address], 4 08:13:37 Celebrex 100 mg capsule 2023 024 [email or web address] [facility] - [address], [address], 4 09:08:16 Patient TargetsNo targets recorded. Patient InstructionsNo instructions recorded. Reason for Referral None Reported. Results Created Date Observation Date Name Description Value Unit Range Abnormal Flag Note LastModifiedBy Organization Detail LastModifiedTime 09/30/2009/30/2023 urina lysis , dipst ick Leukocytes Negati ve Not Available [facility] [address] [place] [address] [address], [place], [address], 09/30/2023 12:47:42 09/30/20 23 09/30/2023 urina lysis , dipst ick Nitrite negati ve Not Available Jayesh wade [facility] [address] [place] [address] [address], [place], [address], 09/30/2023 12:47:42 09/30/20 23 09/30/2023 urina lysis , dipst ick Protein Negati ve Not Available [facility] [address] [place] [address] [address], [place], [address], 09/30/2023 12:47:42 09/30/2009/30/2023 urina lysis , dipst ick pH 5.0 Not Available [facility] Gabriel[facility]ad[facility] [address] [place] [address] [address], [place], [address], 09/30/2023 12:47:42 09/30/2009/30/2023 urina lysis , dipst ick Blood Negati ve Not Available [facility] [address] [place] [address] Dr [address], [place], [address], 09/30/2023 12:47:42 09/30/2009/30/2023 urina lysis , dipst ick Specific [place] 1.005 Not Available Mv Gilda [facility] [address] [place] [address] Dr [address], [place], [address], 09/30/2023 12:47:42 09/30/2009/30/2023 urina lysis , dipst ick Ketone Negati ve Not Available [facility]esh [facility] [address] [place] [address] [address], [place], [address], 09/30/2023 12:47:42 09/30/2009/30/2023 urina lysis , dipst ick Bilirubin Negati ve Not Available [facility]esh [facility] [address] [place] [address] [address], [place], [address], 09/30/2023 12:47:42 09/30/2009/30/2023 urina lysis , dipst ick Glucose Negati ve Not Available [facility] [address] [place] [address] [address], [place], [address], 09/30/2023 12:47:42 09/30/20 23 09/30/2023 urina lysis , dipst ick Appearance Clear Not Available Jayesh Renteria [facility] [address] [place] [address] [address], [place], [address], 09/30/2023 12:47:42 09/30/2009/30/2023 urina lysis , dipst ick Color Pale Yellow Not Available Jayesh Gild[facility] [address] [place] [address] [address], [place], [address], 09/30/2023 12:47:42 10/02/20 23 10/02/2023 CBC AUTO W DIFF WBC 6.9 K/uL 4.0-10 .5 Not Available [facility] [address] , [place], [address], 10/02/2023 14:08:41 10/02/20 23 10/02/2023 CBC AUTO W DIFF RBC 5.0 M/mm3 4.7-6. 1 Not Available [facility] ([facility]) [address] , [place], [address], 10/02/2023 14:08:41 10/02/20 23 10/02/2023 CBC AUTO W DIFF HGB 15.4 gm/dL 13.5-1 8.0 Not Available [facility] ([facility]) [address] , [place], [address], 10/02/2023 14:08:41 10/02/20 23 10/02/2023 CBC AUTO W DIFF HCT 46.5 % 42.0-5 2.0 Not Available [facility] ([facility]) [address] , [place], [address], 10/02/2023 14:08:41 10/02/20 23 10/02/2023 CBC AUTO W DIFF MCV 93.2 fL 78-100 Not Available [facility] ([facility]) [address] , [place], [address], 10/02/2023 14:08:41 10/02/20 23 10/02/2023 CBC AUTO W DIFF MCH 30.9 pg 27-31 Not Available [facility] ([facility]) [address] , [place], [address], 10/02/2023 14:08:41 10/02/20 23 10/02/2023 CBC AUTO W DIFF MCHC 33.1 g/dL 32-36 Not Available [facility] ([facility]) [address] , [place], [address], 10/02/2023 14:08:41 10/02/20 23 10/02/2023 CBC AUTO W DIFF RDW 12.9 % 11.5-1 4.0 Not Available [facility] ([facility]) [address], [place], [address], 10/02/2023 14:08:41 10/02/20 23 10/02/2023 CBC AUTO W DIFF platelet count 234 K/uL 150-45 0 Not Available [facility] ([facility]) [address], [place], [address], 10/02/2023 14:08:41 10/02/20 23 10/02/2023 CBC AUTO W DIFF MPV 9.4 fL 6-9.5 Not Available [facility] ([facility]) [address] , [place], [address], 10/02/2023 14:08:41 10/02/20 23 10/02/2023 CBC AUTO W DIFF neutrophil% 65.2 % 43-65 high Not Available [facility] ([facility]) [address], [place], [address], 10/02/2023 14:08:41 10/02/20 23 10/02/2023 CBC AUTO W DIFF lymphocyte% 24.2 % 20.5-4 5.5 Not Available [facility] ([facility]) [address] [place], [address], 10/02/2023 14:08:41 10/02/20 23 10/02/2023 CBC AUTO W DIFF monocyte% 8.6 % 5.5-11 .7 Not Available [facility] ([facility]) [address], [place], [address], 10/02/2023 14:08:41 10/02/20 23 10/02/2023 CBC AUTO W DIFF eosinophil% 1.4 % 0.9-2. 9 Not Available [facility] ([facility]) [address], [place], [address], 10/02/2023 14:08:41 10/02/20 23 10/02/2023 CBC AUTO W DIFF basophil% 0.3 % 0.2-1. 0 Not Available [facility] ([facility]) [address] [facility], [place], [address], 10/02/2023 14:08:41 10/02/20 23 10/02/2023 CBC AUTO W DIFF immature granulocytes % 0.3 % 0.0-0. 8 Not Available [facility]) [address] [facility], [place], [address], 10/02/2023 14:08:41 10/02/20 23 10/02/2023 CBC AUTO W DIFF nucleated red blood cells % 0.0 % Not Available [facility] ([facility]) [address] [place], [address], 10/02/2023 14:08:41 10/02/20 23 10/02/2023 CBC AUTO W DIFF neutrophil# 4.5 K/uL 2.2-4. 8 Not Available [facility] ([facility]) [address] [place], [address], 10/02/2023 14:08:41 10/02/20 23 10/02/2023 CBC AUTO W DIFF lymphocyte# 1.7 cell/ mcL 1.3-2. 9 Not Available [facility] ([facility]) [address], [place], [address], 10/02/2023 14:08:41 10/02/20 23 10/02/2023 CBC AUTO W DIFF monocyte# 0.6 cell/ mcL 0.3-0. 8 Not Available [facility] ([facility]) [address], [place], [address], 10/02/2023 14:08:41 10/02/20 23 10/02/2023 CBC AUTO W DIFF eosinophil# 0.1 cell/ mcL 0-0.2 Not Available [facility] ([facility]) [address], [place], [address], 10/02/2023 14:08:41 10/02/20 23 10/02/2023 CBC AUTO W DIFF basophil# 0.0 cell/ mcL 0.0-1. 0 Not Available [facility] ([facility]) [address], [place], [address], 10/02/2023 14:08:41 10/02/20 23 10/02/2023 CBC AUTO W DIFF immature gramulocytes # 0.02 K/uL Not Available [facility] ([facility]) [address] [facility], [place], [address], 10/02/2023 14:08:41 10/02/20 23 10/02/2023 CBC AUTO W DIFF nucleated red blood cells # 0.00 K/uL Not Available [facility] ([facility]) [address] [facility], [place], [address], 10/02/2023 14:08:41 10/02/20 23 10/02/2023 CBC AUTO W DIFF manual differential NO Not Available [facility] ([facility]) [address], [place], [address], 10/02/2023 14:08:41 10/02/20 23 10/02/2023 HEMOG LOBIN A1C A1C 6.0 % 3.8-5. 6 high GLYCO SYLAT ED HEMOG LOBIN (A1C) EXPEC CHRISTINA RANGE S: <6.5 NON-D IABET IC 6.5-7 .5 EXCEL LENT 7.5-8 .5 GOOD >8.5 POOR Not Available [facility] ([facility]) [address], [place], [address], 10/02/2023 14:31:04 10/02/20 23 10/02/2023 IRON STUDY (IRON /TIBC /%SAT ) iron 110 mcg/m L 40-180 Not Available [facility] ([facility]) [address], [place], [address], 10/02/2023 16:17:16 10/02/20 23 10/02/2023 IRON STUDY (IRON /TIBC /%SAT ) TIBC 327 mcg/d L 250-45 0 Not Available [facility] ([facility]) [address], [place], [address], 10/02/2023 16:17:16 10/02/20 23 10/02/2023 IRON STUDY (IRON /TIBC /%SAT ) %sat 34 15-55 Not Available [facility] ([facility]) [address], [place], [address], 10/02/2023 16:17:16 10/02/20 23 10/02/2023 COMP METAB OLIC PANEL sodium 135 mmol/ L 136-14 5 low Not Available [facility] ([facility]) [address] [place], [address], 10/02/2023 16:18:08 10/02/20 23 10/02/2023 COMP METAB OLIC PANEL potassium 4.1 mmol/ L 3.6-5. 0 Not Available [facility] ([facility]) [address] [place], [address], 10/02/2023 16:18:08 10/02/20 23 10/02/2023 COMP METAB OLIC PANEL chloride 97 mmol/ L 98-107 low Not Available [facility] ([facility]) [address], [place], [address], 10/02/2023 16:18:08 10/02/20 23 10/02/2023 COMP METAB OLIC PANEL carbon dioxide 29.2 mmol/ L 21.0-3 2.0 Not Available [facility] ([facility]) [address], [place], [address], 10/02/2023 16:18:08 10/02/20 23 10/02/2023 COMP METAB OLIC PANEL anion gap 12.9 Not Available [facility] ([facility]) [address] , [place], [address], 10/02/2023 16:18:08 10/02/20 23 10/02/2023 COMP METAB OLIC PANEL glucose 93 mg/dL 70-120 Not Available [facility] ([facility]) [address] , [place], [address], 10/02/2023 16:18:08 10/02/20 23 10/02/2023 COMP METAB OLIC PANEL BUN 14 mg/dL 7-18 Not Available [facility] ([facility]) [address] , [place], [address], 10/02/2023 16:18:08 10/02/20 23 10/02/2023 COMP METAB OLIC PANEL creatinine 1.3 mg/dL 0.6-1. 3 Not Available [facility] ([facility]) [address] , [place], [address], 10/02/2023 16:18:08 10/02/20 23 10/02/2023 COMP METAB OLIC PANEL glomerular filtration rate >60 mlper min 60- Not Available [facility] ([facility]) [address] , [place], [address], 10/02/2023 16:18:08 10/02/20 23 10/02/2023 COMP METAB OLIC PANEL total protein 8.0 g/dL 6.4-8. 2 Not Available [facility] ([facility]) [address], [place], [address], 10/02/2023 16:18:08 10/02/20 23 10/02/2023 COMP METAB OLIC PANEL albumin 4.1 g/dL 3.4-5. 0 Not Available [facility] ([facility]) [address] , [place], [address], 10/02/2023 16:18:08 10/02/20 23 10/02/2023 COMP METAB OLIC PANEL globulin 3.9 Not Available [facility] ([facility]) [address] , [place], [address], 10/02/2023 16:18:08 10/02/20 23 10/02/2023 COMP METAB OLIC PANEL alb/glob ratio 1.1 0.7-2 Not Available [facility] ([facility]) [address] , [place], [address], 10/02/2023 16:18:08 10/02/20 23 10/02/2023 COMP METAB OLIC PANEL calcium 9.3 mg/dL 8.5-10 .5 Not Available [facility] ([facility]) [address] , [place], [address], 10/02/2023 16:18:08 10/02/20 23 10/02/2023 COMP METAB OLIC PANEL bilirubin total 0.70 mg/dL 0.10-1 .00 Not Available [facility] ([facility]) [address] , [place], [address], 10/02/2023 16:18:08 10/02/20 23 10/02/2023 COMP METAB OLIC PANEL AST (SGOT) 19 U/L 0-37 Not Available [facility] ([facility]) [address], [place], [address], 10/02/2023 16:18:08 10/02/20 23 10/02/2023 COMP METAB OLIC PANEL ALT (SGPT) 39 U/L 0-65 Not Available [facility] ([facility]) [address], [place], [address], 10/02/2023 16:18:08 10/02/20 23 10/02/2023 COMP METAB OLIC PANEL alk phosphatase 52 U/L 46-116 Not Available [facility] ([facility]) [address], [place], [address], 10/02/2023 16:18:08 10/02/20 23 10/02/2023 OLGA TIN ferritin, serum 348 NG/mL 3-244 high Not Available [facility] ([facility]) [address] [facility], [place], [address], 10/02/2023 16:18:12 10/02/20 23 10/02/2023 LIPID PANEL triglyceride 264 mg/dL 30-200 high Not Available [facility] ([facility]) [address], [place], [address], 10/02/2023 16:18:13 10/02/20 23 10/02/2023 LIPID PANEL cholesterol 139 mg/dL 0-200 Not Available [facility] ([facility]) [address], [place], [address], 10/02/2023 16:18:13 10/02/20 23 10/02/2023 LIPID PANEL HDL 33 mg/dL 40-104 low Not Available [facility] ([facility]) [address], [place], [address], 10/02/2023 16:18:13 10/02/20 23 10/02/2023 LIPID PANEL LDL calculated 53 mg/dL 0-130 Not Available [facility] ([facility]) [address] [facility], [place], [address], 10/02/2023 16:18:13 10/02/20 23 10/02/2023 THYRO ID STIMU LATIN G HORMO NE thyroid stim hormone 1.92 mIU/L 0.36-3 .74 Not Available [facility] ([facility]) [address] [facility], [place], [address], 10/02/2023 16:18:15 10/02/20 23 10/02/2023 T4 FREE T4 free 1.21 NG/dL 0.76-1 .46 Not Available [facility] ([facility]) [address] [facility], [place], [address], 10/02/2023 16:18:16 10/02/20 23 10/02/2023 FOLIC ACID folate (folic acid), serum 18.0 NG/mL 8.6-58 .9 *Note : Refer reji miner New Test Metho d in use. Not Available [facility] ([facility]) [address] [facility], [place], [address], 10/02/2023 16:19:07 10/02/20 23 10/02/2023 VITAM IN D, 25-HY DROXY vitamin D, 25-hydroxy 24.8 NG/mL 30.0-1 00.0 low Not Available [facility] ([facility]) [address] [facility], [place], [address], 10/02/2023 16:21:17 10/02/20 23 10/03/2023 PTH, INTAC T PTH, intact 20 pg/mL 15-65 Perfo rmed at: [facility] - [facility] [address] [address] Lab Direc tor: Lazarus emmanuel PhD, Phone : [phone] Not Available [facility] ([facility]) [address] [facility], [place], [address], 10/03/2023 13:11:13 10/02/20 23 10/07/2023 VITAM IN B1 REINA INE vitamin B1 (thiamine), plasma 125.8 nmol/ L 66.5-2 00.0 Speci men Comme nt: Test( s) 27955 8-Vit . B1, Whole Blood Speci men Comme nt: was devel oped and its perfo rmanc e jeet cte risti cs Speci men Comme nt: deter mined by [facility]. It has not been stevie ared or appro timmy Speci men Comme nt: by the Food and Drug Admin istra tion. Perfo rmed at: [facility] [employer] [employer] [address] [id number] Lab Direc tor: Mary white MD, Phone : [phone] Not Available [facility] ([facility]) [address] [facility], [place], [address], 10/07/2023 06:13:18 10/02/20 23 10/07/2023 VITAM IN A vitamin A, serum 67.1 ug/dL 20.1-6 2.0 high Refer ence inter vals for vitam in A deter mined from [facility] inter nal studi es. Indiv idual s with vitam in A less than 20 ug/dL are consi dered vitam in A defic ient and those with serum modesta ntrat ions less than 10 ug/dL are consi dered sever joon defic ient. . This test was devel oped and its perfo rmanc e jeet cteri stics deter mined by [facility]. It has not been clear ed or appro timmy by the Food and Drug Admin istra tion. Perfo rmed at: [facility] Anshu weiss [address] [place] [id number] Lab Direc tor: Mary white MD, Phone : [phone] Not Available [facility] ([facility]) [address] [facility], [place], [address], 10/07/2023 19:09:19 10/02/20 23 10/07/2023 VITAM IN E vitamin E(alpha tocopherol) 10.1 mg/L 7.0-25 .1 Not Available [facility] ([facility]) [address], [place], [address], 10/07/2023 19:09:20 10/02/20 23 10/07/2023 VITAM IN E vitamin E(gamma tocopherol) 1.9 mg/L 0.5-5. 5 Refer ence inter vals for alpha and gamma -toco phero l deter mined from [facility] Exami natio n Surve y, 2004- 2005. Indiv idual s with alpha -toco phero l level s less than 5.0 mg/L are consi dered vitam in E defic ient. Perfo rmed at: [facility] Anshu weiss [address] [place] [id number] Lab Direc tor: Mary white MD, Phone : [phone] Not Available [facility] ([facility]) [address], [place], [address], 10/07/2023 19:09:20 10/02/20 23 10/10/2023 METHY LMALO [place] ACID QUANT methylmaloni c acid, serum 119 nmol/ L 0-378 Speci men Comme nt: Test( s) 81767 7-Met hylma lonic Acid, Serum Speci men Comme nt: was devel oped and its perfo rmanc e jeet cte risti cs Speci men Comme nt: deter mined by [facility]. It has not been stevie ared or appro timmy Speci men Comme nt: by the Food and Drug Admin istra tion. Perfo rmed at: [facility] [employer] [facility] Anshu weiss [address] [place] [id number] Lab Direc tor: Mary white MD, Phone : [phone] Not Available [facility] ([facility]) [address] , [place], [address], 10/10/2023 06:13:38 11/20/19 24 11/21/[address] (H PYLOR I AB QUAL) jaycee test 20 min NEGATI VE negati ve Not Available [facility] ([facility]) [address] , [place], [address], 11/21/2023 11:26:14 11/20/19 24 11/21/[address] (H PYLOR I AB QUAL) jaycee test 1HR NEGATI VE negati ve Not Available [facility] ([facility]) [address] , [place], [address], 11/21/2023 11:26:14 11/20/19 24 11/21/[address] (H PYLOR I AB QUAL) jaycee test 3 HR NEGATI VE negati ve Not Available [facility] ([facility]) [address] , [place], [address], 11/21/2023 11:26:14 11/20/19 24 11/21/[address] (H PYLOR I AB QUAL) jaycee test 24 HR NEGATI VE negati ve Not Available [facility] ([facility]) [address] , [place], [address], 11/21/2023 11:26:14 11/20/19 24 11/21/[address] (H PYLOR I AB QUAL) jaycee test kit lot# [id number] Not Available [facility] ([facility]) [address] , [place], [address], 11/21/2023 11:26:14 11/20/19 24 11/21/[address] (H PYLOR I AB QUAL) jaycee test kit exp date Not Available [facility] ([facility]) [address] , [place], [address], 11/21/2023 11:26:14 12/17/19 24 12/18/2023 CBC WITH DIFFE RENTI AL/PL ATELE T WBC 6.6 x10e3 /uL 3.4-10 .8 Not Available [facility] ([facility]) [address] [facility], [place], [address], 12/18/2023 05:39:14 12/17/19 24 12/18/2023 CBC WITH DIFFE RENTI AL/PL ATELE T RBC 4.83 x10e6 /uL 4.14-5 .80 Not Available [facility] ([facility]) [address] [place], [address], 12/18/2023 05:39:14 12/17/19 24 12/18/2023 CBC WITH DIFFE RENTI AL/PL ATELE T hemoglobin 15.1 g/dL 13.0-1 7.7 Not Available [facility] ([facility]) [address] [facility], [place], [address], 12/18/2023 05:39:14 12/17/19 24 12/18/2023 CBC WITH DIFFE RENTI AL/PL ATELE T hematocrit 44.3 % 37.5-5 1.0 Not Available [facility] ([facility]) [address] [place], [address], 12/18/2023 05:39:14 12/17/19 24 12/18/2023 CBC WITH DIFFE RENTI AL/PL ATELE T MCV 92 fL 79-97 Not Available [facility] ([facility]) [address] [place], [address], 12/18/2023 05:39:14 12/17/19 24 12/18/2023 CBC WITH DIFFE RENTI AL/PL ATELE T MCH 31.3 pg 26.6-3 3.0 Not Available [facility] ([facility]) [address] [place], [address], 12/18/2023 05:39:14 12/17/19 24 12/18/2023 CBC WITH DIFFE RENTI AL/PL ATELE T MCHC 34.1 g/dL 31.5-3 5.7 Not Available [facility] ([facility]) [address] [facility], [place], [address], 12/18/2023 05:39:14 12/17/19 24 12/18/2023 CBC WITH DIFFE RENTI AL/PL ATELE T RDW 13.0 % 11.6-1 5.4 Not Available [facility] ([facility]) [address] [facility], [place], [address], 12/18/2023 05:39:14 12/17/19 24 12/18/2023 CBC WITH DIFFE RENTI AL/PL ATELE T platelets 227 x10e3 /uL 150-45 0 Not Available [facility] ([facility]) [address] [facility], [place], [address], 12/18/2023 05:39:14 12/17/19 24 12/18/2023 CBC WITH DIFFE RENTI AL/PL ATELE T neutrophils 61 % not estab. Not Available [facility] ([facility]) [address] [facility], [place], [address], 12/18/2023 05:39:14 12/17/19 24 12/18/2023 CBC WITH DIFFE RENTI AL/PL ATELE T lymphs 28 % not estab. Not Available [facility] ([facility]) [address] [facility], [place], [address], 12/18/2023 05:39:14 12/17/19 24 12/18/2023 CBC WITH DIFFE RENTI AL/PL ATELE T monocytes 9 % not estab. Not Available [facility] ([facility]) [address] [facility], [place], [address], 12/18/2023 05:39:14 12/17/19 24 12/18/2023 CBC WITH DIFFE RENTI AL/PL ATELE T eos 2 % not estab. Not Available [facility] ([facility]) [address] [place], [address], 12/18/2023 05:39:14 12/17/19 24 12/18/2023 CBC WITH DIFFE RENTI AL/PL ATELE T basos 0 % not estab. Not Available [facility] ([facility]) [address] [facility], [place], [address], 12/18/2023 05:39:14 12/17/19 24 12/18/2023 CBC WITH DIFFE RENTI AL/PL ATELE T immature cells ANIMAL CARE GIVER Not Available [facility] ([facility]) [address] [place], [address], 12/18/2023 05:39:14 12/17/19 24 12/18/2023 CBC WITH DIFFE RENTI AL/PL ATELE T neutrophils (absolute) 4.0 x10e3 /uL 1.4-7. 0 Not Available [facility] ([facility]) [address] [place], [address], 12/18/2023 05:39:14 12/17/19 24 12/18/2023 CBC WITH DIFFE RENTI AL/PL ATELE T lymphs (absolute) 1.9 x10e3 /uL 0.7-3. 1 Not Available [facility] ([facility]) [address] [place], [address], 12/18/2023 05:39:14 12/17/19 24 12/18/2023 CBC WITH DIFFE RENTI AL/PL ATELE T monocytes(ab solute) 0.6 x10e3 /uL 0.1-0. 9 Not Available [facility] ([facility]) [address] [place], [address], 12/18/2023 05:39:14 12/17/19 24 12/18/2023 CBC WITH DIFFE RENTI AL/PL ATELE T eos (absolute) 0.1 x10e3 /uL 0.0-0. 4 Not Available [facility] ([facility]) [address] [facility], [place], [address], 12/18/2023 05:39:14 12/17/19 24 12/18/2023 CBC WITH DIFFE RENTI AL/PL ATELE T baso (absolute) 0.0 x10e3 /uL 0.0-0. 2 Not Available [facility] ([facility]) [address] [facility], [place], [address], 12/18/2023 05:39:14 12/17/19 24 12/18/2023 CBC WITH DIFFE RENTI AL/PL ATELE T immature granulocytes 0 % not estab. Not Available [facility] ([facility]) [address] [facility], [place], [address], 12/18/2023 05:39:14 12/17/19 24 12/18/2023 CBC WITH DIFFE RENTI AL/PL ATELE T immature grans (abs) 0.0 x10e3 /uL 0.0-0. 1 Not Available [facility] ([facility]) [address] [facility], [place], [address], 12/18/2023 05:39:14 12/17/19 24 12/18/2023 CBC WITH DIFFE RENTI AL/PL ATELE T NRBC ANIMAL CARE GIVER Not Available [facility] ([facility]) [address] [facility], [place], [address], 12/18/2023 05:39:14 12/17/19 24 12/18/2023 CBC WITH DIFFE RENTI AL/PL ATELE T hematology comments: ANIMAL CARE GIVER Not Available [facility] ([facility]) [address] [facility], [place], [address], 12/18/2023 05:39:14 12/17/19 24 12/18/2023 COMP. METAB OLIC PANEL (14) glucose 89 mg/dL 70-99 Not Available [facility] ([facility]) [address] [place], [address], 12/18/2023 05:39:16 12/17/19 24 12/18/2023 COMP. METAB OLIC PANEL (14) BUN 14 mg/dL 6-24 Not Available [facility] ([facility]) [address] [place], [address], 12/18/2023 05:39:16 12/17/19 24 12/18/2023 COMP. METAB OLIC PANEL (14) creatinine 1.21 mg/dL 0.76-1 .27 Not Available [facility] ([facility]) [address] [place], [address], 12/18/2023 05:39:16 12/17/19 24 12/18/2023 COMP. METAB OLIC PANEL (14) eGFR 72 mL/mi n/1.7 3 >59 Not Available [facility] ([facility]) [address] [place], [address], 12/18/2023 05:39:16 12/17/19 24 12/18/2023 COMP. METAB OLIC PANEL (14) BUN/creatini ne ratio 12 9-20 Not Available [facility] ([facility]) [address] [place], [address], 12/18/2023 05:39:16 12/17/19 24 12/18/2023 COMP. METAB OLIC PANEL (14) sodium 138 mmol/ L 134-14 4 Not Available [facility] ([facility]) [address] [place], [address], 12/18/2023 05:39:16 12/17/19 24 12/18/2023 COMP. METAB OLIC PANEL (14) potassium 4.4 mmol/ L 3.5-5. 2 Not Available [facility] ([facility]) [address] [place], [address], 12/18/2023 05:39:16 12/17/19 24 12/18/2023 COMP. METAB OLIC PANEL (14) chloride 96 mmol/ L 96-106 Not Available [facility] ([facility]) [address] [place], [address], 12/18/2023 05:39:16 12/17/19 24 12/18/2023 COMP. METAB OLIC PANEL (14) carbon dioxide, total 25 mmol/ L 20-29 Not Available [facility] ([facility]) [address] [place], [address], 12/18/2023 05:39:16 12/17/19 24 12/18/2023 COMP. METAB OLIC PANEL (14) calcium 9.9 mg/dL 8.7-10 .2 Not Available [facility] ([facility]) [address] [place], [address], 12/18/2023 05:39:16 12/17/19 24 12/18/2023 COMP. METAB OLIC PANEL (14) protein, total 7.5 g/dL 6.0-8. 5 Not Available [facility] ([facility]) [address] [place], [address], 12/18/2023 05:39:16 12/17/19 24 12/18/2023 COMP. METAB OLIC PANEL (14) albumin 4.7 g/dL 3.8-4. 9 Not Available [facility] ([facility]) [address] [place], [address], 12/18/2023 05:39:16 12/17/19 24 12/18/2023 COMP. METAB OLIC PANEL (14) globulin, total 2.8 g/dL 1.5-4. 5 Not Available [facility] ([facility]) [address] [place], [address], 12/18/2023 05:39:16 12/17/19 24 12/18/2023 COMP. METAB OLIC PANEL (14) A/G ratio 1.7 1.2-2. 2 Not Available [facility] ([facility]) [address] [place], [address], 12/18/2023 05:39:16 12/17/19 24 12/18/2023 COMP. METAB OLIC PANEL (14) bilirubin, total 0.6 mg/dL 0.0-1. 2 Not Available [facility] ([facility]) [address] [place], [address], 12/18/2023 05:39:16 12/17/19 24 12/18/2023 COMP. METAB OLIC PANEL (14) alkaline phosphatase 69 IU/L 44-121 Not Available [facility] ([facility]) [address] [place], [address], 12/18/2023 05:39:16 12/17/19 24 12/18/2023 COMP. METAB OLIC PANEL (14) AST (SGOT) 26 IU/L 0-40 Not Available [facility] ([facility]) [address] [place], [address], 12/18/2023 05:39:16 12/17/19 24 12/18/2023 COMP. METAB OLIC PANEL (14) ALT (SGPT) 35 IU/L 0-44 Not Available [facility] ([facility]) [address] [place], [address], 12/18/2023 05:39:16 12/17/19 24 12/18/2023 HEMOG LOBIN A1C hemoglobin A1C 6.2 % 4.8-5. 6 above high normal Predi abete s: 5.7 - 6.4 Diabe zi: >6.4 Glyce alfonso contr ol for adult s with diabe zi: <7.0 Not Available [facility] ([facility]) [address] [place], [address], 12/18/2023 05:39:17 02/12/2002/13/2024 FE+TI BC+FE R iron bind.cap.(TI BC) 313 ug/dL 250-45 0 Not Available [facility] ([facility]) [address] [place], [address], 02/18/2024 20:35:49 02/12/20 24 02/13/2024 FE+TI BC+FE R UIBC 225 ug/dL 111-34 3 Not Available [facility] ([facility]) [address] [place], [address], 02/18/2024 20:35:49 02/12/2002/13/2024 FE+TI BC+FE R iron 88 ug/dL 38-169 Not Available [facility] ([facility]) [address] [place], [address], 02/18/2024 20:35:49 02/12/20 24 02/13/2024 FE+TI BC+FE R iron saturation 28 % 15-55 Not Available [facility] ([facility]) [address] [place], [address], 02/18/2024 20:35:49 02/12/2002/13/2024 FE+TI BC+FE R ferritin 267 NG/mL 30-400 Not Available [facility] ([facility]) [address] [place], [address], 02/18/2024 20:35:49 02/12/2002/13/2024 TSH+F REE T4 TSH 1.790 uIU/m L 0.450- 4.500 Not Available [facility] ([facility]) [address] [place], [address], 02/18/2024 20:35:50 04/18/20 24 02/13/2024 TSH+F REE T4 T4,free(dire ct) 1.45 NG/dL 0.82-1 .77 Not Available [facility] ([facility]) [address] [place], [address], 02/18/2024 20:35:50 02/12/20 24 02/13/2024 CBC WITH DIFFE RENTI AL/PL ATELE T WBC 5.2 x10e3 /uL 3.4-10 .8 Not Available [facility] ([facility]) [address] [place], [address], 02/18/2024 20:35:51 02/12/2002/13/2024 CBC WITH DIFFE RENTI AL/PL ATELE T RBC 4.68 x10e6 /uL 4.14-5 .80 Not Available [facility] ([facility]) [address] [place], [address], 02/18/2024 20:35:51 02/12/20 24 02/13/2024 CBC WITH DIFFE RENTI AL/PL ATELE T hemoglobin 14.7 g/dL 13.0-1 7.7 Not Available [facility] ([facility]) [address] [place], [address], 02/18/2024 20:35:51 02/12/2002/13/2024 CBC WITH DIFFE RENTI AL/PL ATELE T hematocrit 43.3 % 37.5-5 1.0 Not Available [facility] ([facility]) [address] [place], [address], 02/18/2024 20:35:51 02/12/2002/13/2024 CBC WITH DIFFE RENTI AL/PL ATELE T MCV 93 fL 79-97 Not Available [facility] ([facility]) [address] [place], [address], 02/18/2024 20:35:51 02/12/20 24 02/13/2024 CBC WITH DIFFE RENTI AL/PL ATELE T MCH 31.4 pg 26.6-3 3.0 Not Available [facility] ([facility]) [address] [place], [address], 02/18/2024 20:35:51 02/12/20 24 02/13/2024 CBC WITH DIFFE RENTI AL/PL ATELE T MCHC 33.9 g/dL 31.5-3 5.7 Not Available [facility] ([facility]) [address] [facility], [place], [address], 02/18/2024 20:35:51 02/12/20 24 02/13/2024 CBC WITH DIFFE RENTI AL/PL ATELE T RDW 12.8 % 11.6-1 5.4 Not Available [facility] ([facility]) [address] [place], [address], 02/18/2024 20:35:51 02/12/20 24 02/13/2024 CBC WITH DIFFE RENTI AL/PL ATELE T platelets 209 x10e3 /uL 150-45 0 Not Available [facility] ([facility]) [address] [facility], [place], [address], 02/18/2024 20:35:51 02/12/20 24 02/13/2024 CBC WITH DIFFE RENTI AL/PL ATELE T neutrophils 64 % not estab. Not Available [facility] ([facility]) [address] [facility], [place], [address], 02/18/2024 20:35:51 02/12/20 24 02/13/2024 CBC WITH DIFFE RENTI AL/PL ATELE T lymphs 24 % not estab. Not Available [facility] ([facility]) [address] [facility], [place], [address], 02/18/2024 20:35:51 02/12/20 24 02/13/2024 CBC WITH DIFFE RENTI AL/PL ATELE T monocytes 10 % not estab. Not Available [facility] ([facility]) [address] [facility], [place], [address], 02/18/2024 20:35:51 02/12/20 24 02/13/2024 CBC WITH DIFFE RENTI AL/PL ATELE T eos 2 % not estab. Not Available [facility] ([facility]) [address] [facility], [place], [address], 02/18/2024 20:35:51 02/12/20 24 02/13/2024 CBC WITH DIFFE RENTI AL/PL ATELE T basos 0 % not estab. Not Available [facility] ([facility]) [address] [facility], [place], [address], 02/18/2024 20:35:51 02/12/20 24 02/13/2024 CBC WITH DIFFE RENTI AL/PL ATELE T immature cells ANIMAL CARE GIVER Not Available [facility] ([facility]) [address] [place], [address], 02/18/2024 20:35:51 02/12/20 24 02/13/2024 CBC WITH DIFFE RENTI AL/PL ATELE T neutrophils (absolute) 3.3 x10e3 /uL 1.4-7. 0 Not Available [facility] ([facility]) [address] [facility], [place], [address], 02/18/2024 20:35:51 02/12/20 24 02/13/2024 CBC WITH DIFFE RENTI AL/PL ATELE T lymphs (absolute) 1.2 x10e3 /uL 0.7-3. 1 Not Available [facility] ([facility]) [address] [place], [address], 02/18/2024 20:35:51 02/12/20 24 02/13/2024 CBC WITH DIFFE RENTI AL/PL ATELE T monocytes(ab solute) 0.5 x10e3 /uL 0.1-0. 9 Not Available [facility] ([facility]) [address] [facility], [place], [address], 02/18/2024 20:35:51 02/12/20 24 02/13/2024 CBC WITH DIFFE RENTI AL/PL ATELE T eos (absolute) 0.1 x10e3 /uL 0.0-0. 4 Not Available [facility] ([facility]) [address] [facility], [place], [address], 02/18/2024 20:35:51 02/12/20 24 02/13/2024 CBC WITH DIFFE RENTI AL/PL ATELE T baso (absolute) 0.0 x10e3 /uL 0.0-0. 2 Not Available [facility] ([facility]) [address] [facility], [place], [address], 02/18/2024 20:35:51 02/12/20 24 02/13/2024 CBC WITH DIFFE RENTI AL/PL ATELE T immature granulocytes 0 % not estab. Not Available [facility] ([facility]) [address] [facility], [place], [address], 02/18/2024 20:35:51 02/12/20 24 02/13/2024 CBC WITH DIFFE RENTI AL/PL ATELE T immature grans (abs) 0.0 x10e3 /uL 0.0-0. 1 Not Available [facility] ([facility]) [address] [facility], [place], [address], 02/18/2024 20:35:51 02/12/20 24 02/13/2024 CBC WITH DIFFE RENTI AL/PL ATELE T NRBC ANIMAL CARE GIVER Not Available [facility] ([facility]) [address] [facility], [place], [address], 02/18/2024 20:35:51 02/12/20 24 02/13/2024 CBC WITH DIFFE RENTI AL/PL ATELE T hematology comments: ANIMAL CARE GIVER Not Available [facility] ([facility]) [address] [facility] [place], [address], 02/18/2024 20:35:51 02/12/20 24 02/13/2024 COMP. METAB OLIC PANEL (14) glucose 94 mg/dL 70-99 Not Available [facility] ([facility]) [address] [facility] [place], [address], 02/18/2024 20:35:52 02/12/20 24 02/13/2024 COMP. METAB OLIC PANEL (14) BUN 14 mg/dL 6-24 Not Available [facility] ([facility]) [address] [facility] [place], [address], 02/18/2024 20:35:52 02/12/20 24 02/13/2024 COMP. METAB OLIC PANEL (14) creatinine 0.89 mg/dL 0.76-1 .27 Not Available [facility] ([facility]) [address] [facility] [place], [address], 02/18/2024 20:35:52 02/12/20 24 02/13/2024 COMP. METAB OLIC PANEL (14) eGFR 104 mL/mi n/1.7 3 >59 Not Available [facility] ([facility]) [address] [facility] [place], [address], 02/18/2024 20:35:52 02/12/20 24 02/13/2024 COMP. METAB OLIC PANEL (14) BUN/creatini ne ratio 16 9-20 Not Available [facility] ([facility]) [address] [facility] [place], [address], 02/18/2024 20:35:52 02/12/20 24 02/13/2024 COMP. METAB OLIC PANEL (14) sodium 141 mmol/ L 134-14 4 Not Available [facility] ([facility]) [address] [facility] [place], [address], 02/18/2024 20:35:52 02/12/20 24 02/13/2024 COMP. METAB OLIC PANEL (14) potassium 4.0 mmol/ L 3.5-5. 2 Not Available [facility] ([facility]) [address] [place], [address], 02/18/2024 20:35:52 02/12/20 24 02/13/2024 COMP. METAB OLIC PANEL (14) chloride 105 mmol/ L 96-106 Not Available [facility] ([facility]) [address] [place], [address], 02/18/2024 20:35:52 02/12/20 24 02/13/2024 COMP. METAB OLIC PANEL (14) carbon dioxide, total 25 mmol/ L 20-29 Not Available [facility] ([facility]) [address] [place], [address], 02/18/2024 20:35:52 02/12/20 24 02/13/2024 COMP. METAB OLIC PANEL (14) calcium 8.9 mg/dL 8.7-10 .2 Not Available [facility] ([facility]) [address] [place], [address], 02/18/2024 20:35:52 02/12/20 24 02/13/2024 COMP. METAB OLIC PANEL (14) protein, total 6.4 g/dL 6.0-8. 5 Not Available [facility] ([facility]) [address] [place], [address], 02/18/2024 20:35:52 02/12/20 24 02/13/2024 COMP. METAB OLIC PANEL (14) albumin 4.3 g/dL 3.8-4. 9 Not Available [facility] ([facility]) [address] [place], [address], 02/18/2024 20:35:52 02/12/20 24 02/13/2024 COMP. METAB OLIC PANEL (14) globulin, total 2.1 g/dL 1.5-4. 5 Not Available [facility] ([facility]) [address] [facility] [place], [address], 02/18/2024 20:35:52 02/12/20 24 02/13/2024 COMP. METAB OLIC PANEL (14) A/G ratio 2.0 1.2-2. 2 Not Available [facility] ([facility]) [address] [facility] [place], [address], 02/18/2024 20:35:52 02/12/20 24 02/13/2024 COMP. METAB OLIC PANEL (14) bilirubin, total 0.5 mg/dL 0.0-1. 2 Not Available [facility] ([facility]) [address] [facility] [place], [address], 02/18/2024 20:35:52 02/12/20 24 02/13/2024 COMP. METAB OLIC PANEL (14) alkaline phosphatase 61 IU/L 44-121 Not Available [facility] ([facility]) [address] [facility] [place], [address], 02/18/2024 20:35:52 02/12/20 24 02/13/2024 COMP. METAB OLIC PANEL (14) AST (SGOT) 19 IU/L 0-40 Not Available [facility] ([facility]) [address] [facility] [place], [address], 02/18/2024 20:35:52 02/12/20 24 02/13/2024 COMP. METAB OLIC PANEL (14) ALT (SGPT) 29 IU/L 0-44 Not Available [facility] ([facility]) [address] [facility] [place], [address], 02/18/2024 20:35:52 02/12/20 24 02/13/2024 LIPID PANEL cholesterol, total 85 mg/dL 100-19 9 below low normal Not Available [facility] ([facility]) [address] [place], [address], 02/18/2024 20:35:53 02/12/20 24 02/13/2024 LIPID PANEL triglyceride s 115 mg/dL 0-149 Not Available [facility] ([facility]) [address] [place], [address], 02/18/2024 20:35:53 02/12/20 24 02/13/2024 LIPID PANEL HDL cholesterol 30 mg/dL >39 below low normal Not Available [facility] ([facility]) [address] [place], [address], 02/18/2024 20:35:53 02/12/20 24 02/13/2024 LIPID PANEL VLDL cholesterol gorge 21 mg/dL 5-40 Not Available [facility] ([facility]) [address] [place], [address], 02/18/2024 20:35:53 02/12/20 24 02/13/2024 LIPID PANEL LDL chol calc ([facility]) 34 mg/dL 0-99 Not Available [facility] ([facility]) [address] [place], [address], 02/18/2024 20:35:53 02/12/20 24 02/13/2024 LIPID PANEL comment: ANIMAL CARE GIVER Not Available [facility] ([facility]) [address] [place], [address], 02/18/2024 20:35:53 02/12/20 24 02/18/2024 VITAM IN E vitamin E(alpha tocopherol) 6.6 mg/L 7.0-25 .1 below low normal Not Available [facility] ([facility]) [address] [place], [address], 02/18/2024 20:35:54 02/12/20 24 02/18/2024 VITAM IN E vitamin E(gamma tocopherol) 1.0 mg/L 0.5-5. 5 Refer ence inter vals for alpha and gamma -toco phero l deter mined from [facility] [employer] n Surve y, 2004- 2005. Indiv idual s with alpha -toco phero l level s less than 5.0 mg/L are consi dered vitam in E defic ient. Not Available [facility] ([facility]) [address] [facility], [place], [address], 02/18/2024 20:35:54 02/12/2002/13/2024 HEMOG LOBIN A1C hemoglobin A1C 5.3 % 4.8-5. 6 Predi abete s: 5.7 - 6.4 Diabe zi: >6.4 Glyce alfonso contr ol for adult s with diabe zi: <7.0 Not Available [facility] ([facility]) [address] [facility], [place], [address], 02/18/2024 20:35:55 02/12/2002/13/2024 FOLAT E (FOLI C ACID) , SERUM folate (folic acid), serum 7.8 NG/mL >3.0 A serum folat e modesta ntrat ion of less than 3.1 ng/mL is consi dered to repre sent clini gorge defic iency . Not Available [facility] ([facility]) [address] [facility] [address], [place], [address], 02/18/2024 20:35:56 02/12/2002/18/2024 VITAM IN A, SERUM vitamin A 51.9 ug/dL 20.1-6 2.0 Refer ence inter vals for vitam in A deter mined from [facility] inter nal studi es. Indiv idual s with vitam in A less than 20 ug/dL are consi dered vitam in A defic ient and those with serum modesta ntrat ions less than 10 ug/dL are consi dered sever joon defic ient. This test was devel oped and its perfo rmanc e jeet cteri stics deter mined by [facility]. It has not been clear ed or appro timmy by the Food and Drug Admin istra tion. Not Available [facility] ([facility]) [address] [facility] [address], [place], [address], 02/18/2024 20:35:57 02/12/20 24 02/13/2024 VITAM IN D, 25-HY DROXY vitamin D, 25-hydroxy 43.1 NG/mL 30.0-1 00.0 Vitam in D defic iency has been defin ed by the [facility]i [facility] ine and an Endoc rine Socie ty pract ice guide line as a level of serum 25-OH vitam in D less than 20 ng/mL (1,2) . The End[facility] rine Socie ty went on to furth er defin e vitam in D insuf ficie ncy as a level betwe en 21 and 29 ng/mL (2). 1. IOM (Inst itute of Medic ine). 2009. Dieta ry refer ence ta es for calci um and D. Feliciano weiss [place]: The [facility] Press . 2. Edmundo wells MF, Chucky castillo [place], Linnette off-F errar i MCNALLY, et al. Evalu ation , treat ment, and preve ntion of vitam in D defic iency : an Endoc rine Socie ty clini gorge pract ice guide line. JCEM. 2010; 96(7) :1911 -30. Not Available [facility] ([facility]) [address] [facility] [address], [place], [address], 02/18/2024 20:35:58 02/12/20 24 02/18/2024 VITAM IN B1 (THIA MINE) , BLOOD vit. B1, whole blood 110.2 nmol/ L 66.5-2 00.0 Not Available [facility] ([facility]) [address] [facility] [address], [place], [address], 02/18/2024 20:35:59 02/12/20 24 02/18/2024 METHY LMALO DAK[place] ACID, SERUM methylmaloni c acid, serum 94 nmol/ L 0-378 Not Available [facility] ([facility]) [address] [facility], [place], [address], 02/18/2024 20:35:59 02/12/20 24 02/13/2024 PREAL BUMIN prealbumin 24 mg/dL 10-36 Not Available [facility] ([facility]) [address] [facility] [address], [place], [address], 02/18/2024 20:36:00 10/10/20 23 10/10/2023 elect rocar diogr am, routi ne ECG, 12 leads min No observ ation record ed. [address] (Med Record) [address], [place], [address], 12/17/2023 08:53:56 10/10/20 23 06/09/2023 stres s echoc ardio gram No observ ation record ed. [email or web address] (Med Record) [address], [place], [address], 12/17/2023 08:53:56 10/10/2006/16/2023 imagi ng/di agnos tic resul t No observ ation record ed. [email or web address] (Med Record) [address], [place], [address], 12/17/2023 08:53:56 Result Notes None recorded. Problems Name Problem SNOMED Code Status Onset Date Resolution Date Notes Provider Name and Address Organization Details Recorded Time Arthritis 3639117 Active 2021 CIRA Ybarra - [facility] - [place] [facility] [place] 3 10:52:14 Hypertensi ve disorder 39390887 Active 2021 CIRA Ybarra - [facility] - [place] [facility] [place] 3 10:52:14 Obesity 045541107 Active 2021 CIRA Ybarra - [facility] - [place] [facility] [place] 3 10:52:14 Male hypogonadi sm 10445351 Active 2020 Ellen Prescott null, [place] - [facility] [place] [facility] [place] 3 10:52:14 Atrial fibrillati on 54854974 Active Ellen Prescott null, [place] - [facility] [place] 3 10:52:14 Essential hypertensi on 99853237 Active 2020 Ellen Prescott null, [place] [facility] [place] 3 10:52:14 History of bilateral orchiectom y 399183979 Active 2020 Ellen Prescott null, [place] [facility] [place] 3 10:52:14 Morbid obesity 292415085 Active 2022 Lonnie Sanchez DNP, POWDER SHOVELER, ANIMAL CARE GIVER-C [address] , [place], [address] , [place] - [facility] [place] 3 08:53:23 Disorder of function of stomach 341409313 Active 2022 Lonnie Sanchez DNP, POWDER SHOVELER, ANIMAL CARE GIVER-C [address] [facility], [place], [address] , [place] [facility] [place] 3 08:53:31 Unintentio nal weight gain 1366193133602 04 Active 2022 Lonnie Sanchez DNP, ARSEN, ANIMAL CARE GIVER-C [address] , [place], [address] , [place] [facility] [place] 3 08:53:37 Coronary arterioscl erosis 45980961 Active 2022 Lonnie Sanchez DNP, APRN, ANIMAL CARE GIVER-C [address] , [place], [address] , [place] [facility] [place] 3 12:40:31 Diastolic heart failure 239998885 Active 2022 Lonnie Sanchez DNP, ARSEN, ANIMAL CARE GIVER-C [address] [facility], [place], [address] , [place] [facility] [place] 3 12:40:42 Obstructiv e sleep apnea syndrome 27112207 Active 2022 Lonnie Sanchez DNP, POWDER SHOVELER, ANIMAL CARE GIVER-C [address], [place], [address] , [place] [facility] [place] 3 12:40:53 Mild dehydratio n 8751692628883 Active 2023 Lonnie Sanchez DNP, POWDER SHOVELER, ANIMAL CARE GIVER-C [address], [place], [address] , [place] [facility] [place] 4 09:42:51 Nausea 602099772 Active 2023 Lonnie Sanchez DNP, POWDER SHOVELER, ANIMAL CARE GIVER-C [address], [place], [address] , [place] [facility] [place] 4 09:49:08 Clammy skin 573539464 Active 2023 Lonnie Sanchez DNP, POWDER SHOVELER, ANIMAL CARE GIVER-C [address], [place], [address] , [place] [facility] [place] 4 09:49:13 Diarrhea 97033776 Active 2023 Lonnie Sanchez DNP, POWDER SHOVELER, ANIMAL CARE GIVER-C [address], [place], [address] , [place] [facility] [place] 4 09:49:21 Problem Notes None recorded. Procedures Surgical History Date Name Laterality Status Provider Name and Address Organization Details Recorded Time 12/25/19 24 laparoscopic sleeve gastrectomy completed Ophelia Mccarty [place] - [facility] [place] 12/30/2023 08:15:25 07/02/20 23 MISCELLANEOUS SURGICAL PROCEDURE (SURG) completed Lonnie Sanchez DNP, POWDER SHOVELER, ANIMAL CARE GIVER-C [address], [place], [address], [place] [facility] [place] 12/17/2023 08:53:58 Orchiectomy partial completed Lonnie Sanchez DNP, POWDER SHOVELER, ANIMAL CARE GIVER-C [address], [place], [address], [place] - [facility] & [place] 10/02/2023 11:28:12 procedure on back completed Lonnie Sanchez DNP, APRN, ANIMAL CARE GIVER-C [address], [place], [address], [place] [facility] & [place] 10/02/2023 11:29:07 implantation of neurostimulator in spine completed Lonnie Sanchez DNP, ARSEN, ANIMAL CARE GIVER-C [address], [place], [address], [place] [facility] & [place] 10/02/2023 11:27:30 cardiac catheterization completed Lonnie Sanchez DNP, APRN, ANIMAL CARE GIVER-C [address], [place], [address], [place] [facility] & [place] 10/02/2023 11:27:21 Vasectomy completed Lonnie Sanchez DNP, ARSEN, ANIMAL CARE GIVER-C [address], [place], [address], [place] [facility] [place] 10/02/2023 11:28:52 Imaging Results Imaging Date Name Status LastModified by Organization Details LastModified Time 10/10/2023 electrocardiogram, routine ECG, 12 leads min completed [address] (Med Record) [address], [place], [address], 12/17/2023 08:53:56 06/09/2023 stress echocardiogram completed [address] (Med Record) [address], [place], [address], 12/17/2023 08:53:56 06/16/2023 imaging/diagnostic result completed [address] (Med Record) [address], [place], [address], 12/17/2023 08:53:56 Procedure Notes None recorded. Medical Equipment None Reported. Allergies No known drug allergies Medications Name Sig Start Date Stop Date Status Note LastModified by Organization Details LastModified Time amoxicillin 500 mg capsule TAKE ONE (1) TABLET TWICE A DAY BY ORAL ROUTE FOR 10 DAYS. 09/25 completed Not Available Not Available Not Available furosemide 40 mg tablet TAKE ONE (1) TABLET EVERY DAY BY ORAL ROUTE. 12/29 completed Not Available Not Available Not Available nystatin 100,000 unit/mL oral suspension Take 5 mL 4 times a day by oral route for 7 days. 02/24 completed Not Available Not Available Not Available azithromyci n 250 mg tablet TAKE TWO (2) TABLETS (500 MG) BY ORAL ROUTE ONCE DAILY FOR ONE (1) DAY THEN ONE (1) TABLET (250 MG) BY ORAL ROUTE ONCE DAILY FOR FOUR (4) DAYS 09/23 completed Not Available Not Available Not Available tizanidine 4 mg tablet Take 1 tablet every 6-8 hours by oral route as needed for 7 days. 09/30 completed Not Available Not Available Not Available metoprolol succinate ER 50 mg tablet,exte nded release 24 hr Take 1 tablet every day by oral route. 10/02 completed Not Available Not Available Not Available ketotifen 0.025 % (0.035 %) eye drops INSTILL ONE (1) DROP INTO BOTH EYES TWO (2) TIMES A DAY 08/01 completed Not Available Not Available Not Available meloxicam 15 mg tablet TAKE 1 TABLET BY MOUTH EVERY DAY IF NEEDED FOR MODERATE PAIN. 09/25 completed Not Available Not Available Not Available lisinopril 20 mg tablet TAKE ONE (1) TABLET BY MOUTH EVERY DAY 12/17 completed Not Available Not Available Not Available prednisone 20 mg tablet TAKE ONE (1) TABLET TWICE A DAY BY ORAL ROUTE FOR FIVE (5) DAYS. 08/01 completed Not Available Not Available Not Available metoprolol succinate ER 100 mg tablet,exte nded release 24 hr TAKE 1 TABLET BY MOUTH EVERY DAY active Not Available Not Available No t Available phentermine 37.5 mg tablet TAKE ONE (1) TABLET BY MOUTH EVERY DAY 05/26 completed Not Available Not Available Not Available peg-electro lyte solution 420 gram oral solution USE DIRECTED 05/17 completed Not Available Not Available Not Available omeprazole 40 mg capsule,del ayed release TAKE ONE (1) CAPSULE BY MOUTH ONCE DAILY active Not Available Not Available No t Available olanzapine 7.5 mg tablet TAKE ONE (1) TABLET BY MOUTH AT BEDTIME 07/04 completed Not Available Not Available Not Available aspirin 81 mg tablet,parvez yed release TAKE ONE TABLET DAILY active Not Available Not Available No t Available amoxicillin 500 mg tablet Take 1 tablet twice a day by oral route for 10 days. 09/25 completed Not Available Not Available Not Available oxycodone-a cetaminophe n 5 mg-325 mg tablet TAKE ONE (1) TABLET BY MOUTH EVERY SIX (6) (SIX) HOURS IF NEEDED FOR SEVERE PAIN FOR UP TO FIVE (5) DAYS. 11/08 completed Not Available Not Available Not Available ceftriaxone 1 gram solution for injection Take 1 g by injection route. 10/11 completed Not Available Not Available Not Available thiamine HCl (vitamin B1) 100 mg/mL injection solution Take 200 mg by injection route. 02/11 completed Not Available Not Available Not Available trazodone 100 mg tablet TAKE TWO (2) TABLETS BY MOUTH AT BEDTIME, NEEDED 01/24 completed Not Available Not Available Not Available benzonatate 100 mg capsule TAKE 1 CAPSULE BY MOUTH TWICE DAILY NEEDED FOR COUGH FOR 4 DAYS 12/17 completed Not Available Not Available Not Available cephalexin 500 mg capsule 10/24 completed Not Available Not Available Not Available cyanocobala min (vit B-12) 1,000 mcg/mL injection solution INJECT ONE (1) ML BY SUBCUTANE OUS ROUTE. 02/11 completed Not Available Not Available Not Available fluoxetine 10 mg capsule TAKE ONE (1) CAPSULE EVERY DAY BY ORAL ROUTE. 12/17 completed Not Available Not Available Not Available trazodone 300 mg tablet Take 1 tablet by oral route at bedtime for 90 days. 07/04 completed Not Available Not Available Not Available gabapentin 300 mg capsule TAKE ONE (1) CAPSULE THREE (3) TIMES A DAY BY ORAL ROUTE FOR 7 DAYS. 12/29 completed Not Available Not Available Not Available mupirocin 2 % topical ointment 09/25 completed Not Available Not Available Not Available metoprolol succinate ER 25 mg tablet,exte nded release 24 hr TAKE ONE (1) TABLET BY MOUTH EVERY NIGHT AT BEDTIME FOR HYPERTENS ION 09/25 completed Not Available Not Available Not Available ergocalcife rol (vitamin D2) 1,250 mcg (50,000 unit) capsule TAKE ONE (1) CAPSULE EVERY WEEK BY ORAL ROUTE. active Not Available Not Available No t Available dexamethaso ne sodium phosphate 4 mg/mL injection solution Inject 1 mL as needed by intramusc ular route. 09/25 completed Not Available Not Available Not Available methylpredn isolone 4 mg tablets in a dose pack Take 1 dose pk every day by oral route as directed. 01/24 completed Not Available Not Available Not Available celecoxib 100 mg capsule TAKE ONE (1) CAPSULE TWICE A DAY BY ORAL ROUTE FOR 7 DAYS. 02/11 completed Not Available Not Available Not Available ondansetron 4 mg disintegrat ing tablet PLACE 1 TABLET ON THE TONGUE EVERY 8 HOURS NEEDED FOR 7 DAYS 02/24 completed Not Available Not Available Not Available cefdinir 300 mg capsule TAKE 1 CAPSULE BY MOUTH EVERY 12 HOURS FOR 10 DAYS 12/17 completed Not Available Not Available Not Available fluoxetine 20 mg capsule TAKE THREE (3) CAPSULES BY MOUTH EVERY MORNING 09/25 completed Not Available Not Available Not Available fluticasone propionate 50 mcg/actuati on nasal spray,suspe nsion SPRAY ONE (1) SPRAY EVERY DAY BY INTRANASA L ROUTE. active Not Available Not Available No t Available prazosin 2 mg capsule TAKE ONE (1) CAPSULE BY MOUTH AT BEDTIME 07/04 completed Not Available Not Available Not Available spironolact one 50 mg tablet TAKE ONE (1) TABLET TWICE A DAY BY ORAL ROUTE FOR 30 DAYS. 02/11 completed Not Available Not Available Not Available Asprin Ec Low Dose 81 mg tablet,parvez yed release Take 1 tablet every day by oral route. 04/23 completed Not Available Not Available Not Available rosuvastati n 20 mg tablet TAKE ONE (1) TABLET EVERY DAY BY ORAL ROUTE. active Not Available Not Available No t Available duloxetine 30 mg capsule,del ayed release TAKE 1 CAPSULE BY MOUTH ONCE DAILY FOR 7 DAYS. DO NOT CRUSH OR CHEW 12/17 completed Not Available Not Available Not Available duloxetine 60 mg capsule,del ayed release TAKE 1 CAPSULE BY MOUTH ONCE DAILY DO NOT CRUSH OR CHEW 02/11 completed Not Available Not Available Not Available ranolazine ER 500 mg tablet,exte nded release,12 hr TAKE ONE (1) TABLET TWICE A DAY BY ORAL ROUTE. 02/11 completed prn Not Available Not Available Not Available testosteron e 20.25 mg/1.25 gram per pump act.(1.62 %) transdermal gel Apply 4 pumps every day by transderm al route for 30 days. active Not Available Not Available No t Available Xarelto 20 mg tablet TAKE 1 TABLET BY MOUTH ONCE DAILY active Not Available Not Available No t Available testosteron e 1.62 % (20.25 mg/1.25 gram) transdermal gel packet 09/25 completed Not Available Not Available Not Available Entresto 49 mg-51 mg tablet TAKE 1 TABLET BY MOUTH TWICE DAILY active Not Available Not Available No t Available Entresto 24 mg-26 mg tablet TAKE ONE (1) TABLET ORALLY TWICE A DAY 08/28 completed Not Available Not Available Not Available metoprolol succinate ER 100 mg capsule sprinkle, ext. release 24 hr Take 1 capsule every day by oral route. 12/17 completed Not Available Not Available Not Available Maximum Red Krill [place]-3 300 mg-90 mg-27 mg-45 mg capsule Take 1 capsule every day by oral route with meals for 90 days. 12/17 completed Not Available Not Available Not Available Wegovy 0.25 mg/0.5 mL subcutaneou s pen injector INJECT 0.25 MG (0.5 ML) SUBCUTANE OUSLY (UNDER THE SKIN) WEEKLY. ADMINISTE R WEEKS ONE (1) THROUGH FOUR (4) OF THERAPY 10/02 completed Not Available Not Available Not Available [facility] COVID-19 Antigen Rapid Home Test kit 01/24 completed Not Available Not Available Not Available Vitals Date Recorded Body height Body mass index (BMI) Body weight Body temperature Heart rate Systolic blood pressure Diastolic blood pressure Provider Name and Address Organization Details Last Updated DateTime 3 185.42 cm 45.9 kg/m2 711116. 43 g 98.1 [degF] 60 /min 110 mm[Hg] 71 mm[Hg] Ophelia JACOBSON [facility] [place] 3 10:24:47 Date Recorded Body height Body temperature Heart rate Body mass index (BMI) Body weight Systolic blood pressure Diastolic blood pressure Provider Name and Address Organization Details Last Updated DateTime 4 185.42 cm 98.3 [degF] 66 /min 45.4 kg/m2 845097. 06 g 121 mm[Hg] 78 mm[Hg] Ophelia JACOBSON [facility] [place] 4 12:02:37 Date Recorded Body height Body mass index (BMI) Body weight Provider Name and Address Organization Details Last Updated DateTime 12/30/2023 185.42 cm 42.7 kg/m2 525058.13 g [facility] [place] 12/30/2023 08:10:22 Date Recorded Body height Body mass index (BMI) Body weight Body temperature Heart rate Systolic blood pressure Diastolic blood pressure Provider Name and Address Organization Details Last Updated DateTime 4 185.42 cm 42 kg/m2 226849. 81 g 97.8 [degF] 51 /min 137 mm[Hg] 79 mm[Hg] [facility] [place] 4 09:10:18 Social History Question Answer Notes LastModified by Organizat ion Details LastModified Time Tobacco Smoking Status Former Smoker Ophelia johnson, [place] JACOBSON [facility] [place] 10/02/2023 10:22:11 When Did You Quit Smoking? 16+yearssinc elastcigaret te [email or web address] Information not available 10/02/2023 Sex: Unknown Functional Status Question Answer Note LastModified by Organization D etails LastModified Time What is your level of alcohol consumption? None [email or web address] Information not available 10/02/2023 Mental Status None recorded. Family History Relationship Description Onset Age of this Age Resolved Age Notes LastModified by Organization Details LastModified Time Father Hypertensive disorder [email or web address] Not available 2022 10:21:29 Father Heart disease [email or web address] Not available 2022 10:21:47 Mother Hypertensive disorder [email or web address] Not available 2022 10:21:29 Mother Heart disease [email or web address] Not available 2022 10:21:47 Medical History Condition Response Anxiety Disorder Y Coronary Artery Disease Y Heart Problems Y Heart Disease Y Hypertension Y Sleep Apnea Y High Cholesterol Y Immunizations Vaccine Type Date Status Note Provider Nam e and Address Organization Details Recorded Time Influenza, split virus, quadrivalent, preservative 2 completed Ellen [place] null, [place] [facility] [place] [facility] [place] 09/30/2023 10:51:59 zoster recombinant 2 completed Ellen [place] null[place] - [facility] - [facility] & [place] 09/30/2023 10:51:59 zoster recombinant 2 completed Ellen [place] [facility] - [facility] & [place] 09/30/2023 10:51:59 COVID-19, mRNA, LNP-S, PF, 100 mcg/0.5mL dose or 50 mcg/0.25mL dose 2 completed Ellen [place] null[place] [facility] - [facility] & [place] 09/30/2023 10:51:59 COVID-19, mRNA, LNP-S, PF, 100 mcg/0.5mL dose or 50 mcg/0.25mL dose 1 completed Ellen [place] null[place] [facility] - [facility] & [place] 09/30/2023 10:51:59 COVID-19, mRNA, LNP-S, PF, 100 mcg/0.5mL dose or 50 mcg/0.25mL dose 1 completed Ellen [place] null[place] [facility] - [facility] & [place] 09/30/2023 10:51:59 Tdap 6 completed Ellen [place] null[place] [facility] - [facility] & [place] 09/30/2023 10:51:59 Td (adult), 2 Lf tetanus toxoid, preservative free, adsorbed 0 completed Ellen [place] [facility] 09/30/2023 10:51:59 Hep B, adult 7 completed lElen [place] [facility] 09/30/2023 10:51:59 Hep B, adult 7 completed Ellen [place] 09/30/2023 10:51:59 Hep B, adult 7 completed [place] 09/30/2023 10:51:59 Hep A, adult 6 completed Ellen [place] & [place] 09/30/2023 10:51:59 Influenza, split virus, quadrivalent, PF 1 completed Ellen [place] 09/30/2023 10:51:59 influenza, unspecified formulation 3 completed Ophelia Mccarty [place] [facility] [place] 12/17/2023 12:00:49 Past Encounters Encounter ID Performer Location Encounter Start Date Encounter Closed Date Diagnosis/Indication Diagnosis SNOMED-CT Code Diagnosis ICD10 Code Diagnosis Note [id number] Ranjith Damon MD [facility] [address] [place] [address] [address] [place] [address] 09/30/2023 10:40:19 09/30/2023 11:55:19 Chronic back pain 782266988 G89.29 Erectile dysfunction 860 793401 F52.21 Atrial fibrillation 4943 6004 I48.91 Morbid obesity 641877076 E66.01 [id number] Lonnie Sanchez, DNP, POWDER SHOVELER, ANIMAL CARE GIVER-C [facility] [address] [facility] [address] [place] [address] 10/02/2023 07:53:25 10/02/2023 12:46:52 Obesity 871545817 E66.9 The patient will be scheduled for the following. Initial intake lab work, cardiac clearance, and EGD. All risks complicati ons and alternativ es of the upper endoscopy were discussed with the patient and agreed upon. These include but are not limited to, over sedation, bleeding, perforatio n. Patient will be educated by the surgical weight loss team regarding if any medical managed weight loss will be required and they will follow this according to their recommenda tions. patient will follow-up in office after all testing has been completed Arthritis 5175271 M19.90 Atrial fibrillation 4943 6004 I48.91 Essential hypertension 96551068 I10 Male hypogonadism 607298 06 E29.1 Morbid obesity 187718216 E66.01 Disorder o f function of stomach 116305873 K31.89 Unintentio nal weight gain 0130637995 07713 R63.5 Coronary arteriosclerosis 69834113 I25.10 Diastolic heart failure 212738989 I50.30 Obstructiv e sleep apnea syndrome 65246066 G47.33 [id number] INDY KIM RDN, LD [facility] [address] [facility] [address] [place] [address] 10/02/2023 11:56:57 10/02/2023 14:55:02 Morbid obesity 390386565 E66.01 Discussed 4810-6057 kcal/day for weight loss and 100 g protein/da y with 250 g carbs/day or about 60 g/meal, QID. Deficient knowledge of food and/or nutrition 6148868328 Z76.89 Long discussion regarding carbs, protein, and how to balance these. Pt is motivated to learn and experiment with a variety of ingredient s and to begin monitoring carbs. Irregular meal frequency 664843449 Z72.4 Follow 2-4 Hour Rule and eat 3 meals with snack or 4 meals daily in small amounts containing protein. [id number] Micheal Archuleta DO [facility] [address] [facility] [address] [place] [address] 12/17/2023 07:51:58 12/17/2023 15:42:14 Arthritis 0256086 M19.90 Atrial fibrillation 4943 6004 I48.91 Coronary arteriosclerosis 99155004 I25.10 Diastolic heart failure 169464890 I50.30 Essential hypertension 59189762 I10 Obstructiv e sleep apnea syndrome 89335545 G47.33 Morbid obesity 588390741 E66.01 Hypertensive disorder 38 666090 I10 Male hypogonadism 493374 06 E29.1 History of bilateral orchiectomy 624539227 Z90.79 Pre-surger y evaluation 083410837 Z01.818 Postoperative pain 16050 9007 G89.18 Continue current PPI therapy [id number] Lonnie Sanchez DNP, ARSEN, ANIMAL CARE GIVER-C [facility] [address] [facility] [address] [facility] [place] [place] [address] 12/30/2023 07:54:39 12/30/2023 11:46:41 History of bariatric surgical procedure 192075483 Z98.84 The patient is doing well. The patient is instructed to continue their vitamins as directed. They are to continue advancing their diet as directed. They may start exercising but keep lifting less than 25 pounds for 2 more weeks. I will see them back in 3 weeks or one month from surgery. We will order their first set of labs at that time. I summarized the expectatio ns for the upcoming year. We will check labs at their one month visit from surgery, 3 months from surgery as well as at 6, 9, and 12 months from surgery. These labs will be ordered on the day of their appointmen t. They have the option to come to the appointmen t fasting and labs can be drawn that day at the hospital. If not, I expect these labs to be drawn within the week of ordering them. If they choose to have them drawn at another hospital for special care they are to make sure that the labs are sent to my office. These labs will be reviewed once received and the patient will be called with any significan t abnormalit ies and how they should be addressed. If they would like a copy of their labs they are welcome to request these and we will send a copy to them. If their labs and vitamin levels are adequate at 12 months then they will need lab checks every 6mth-12mth . They consent to understand this plan and agree to comply. Mild dehydration 9819868 119 108 E86.0 will proceed with one liter of IVF in office. Pt toelrating ivf fine. Morbid obesity 397281645 E66.01 Gyne girl you got this Nausea 674695468 R11.0 Essential hypertension 63504018 I10 Diarrhea 98357696 R19.7 [id number] Lonnie Sanchez DNP, ARSEN, ANIMAL CARE GIVER-C [facility] [address] [facility] [address] [place] [address] 02/12/2024 09:00:16 02/12/2024 09:42:10 History of bariatric surgical procedure 233599230 Z98.84 The patient is doing well. The patient is instructed to continue their vitamins as directed. They are to continue advancing their diet as directed.Alondra padilla may start exercising but keep lifting less than 25 pounds for 2 more weeks. I will see them back in 3 weeks or one month from surgery. We will order their first set of labs at that time.I summarized the expectatio ns for the upcoming year. We will check labs at their one month visit from surgery, 3 months from surgery as well as at 6, 9, and 12 months from surgery. These labs will be ordered on the day of their appointmen t. They have the option to come to the appointmen t fasting and labs can be drawn that day at the hospital. If not, I expect these labs to be drawn within the week of ordering them. If they choose to have them drawn at another hospital for special care they are to make sure that the labs are sent to my office. These labs will be reviewed once received and the patient will be called with any significan t abnormalit ies and how they should be addressed. If they would like a copy of their labs they are welcome to request these and we will send a copy to them. If their labs and vitamin levels are adequate at 12 months then they will need lab checks every 6mth-12mth . They consent to understand this plan and agree to comply. Essential hypertension 34357152 I10 Intentiona l weight loss 509832748 R63.8 History of gastrectomy 898820662 Z90.3 Arthritis 2535845 M19.90 Atrial fibrillation 4943 6004 I48.91 Diastolic heart failure 468465882 I50.30 Obstructiv e sleep apnea syndrome 69292059 G47.33 Morbid obesity 867500726 E66.01 He will see dietdavidia n today. [id number] YAS PIERRE RD, LD [facility] [address] [facility] [address] [place] [address] 02/12/2024 09:43:07 02/12/2024 14:00:41 Morbid obesity 544200849 E66.01 BMI 42 wt loss 25.4# Dietary madelyn gaxiola surveillance [id number] Z71.3 Health Concerns Section Related Observation LastModified by Organization Detai ls LastModified Time None Recorded Concern Status LastModified by Organization Details LastModified Time None Recorded Advance Directives Directive None Recorded Payers Insurance Date Sequence Insurance Name Policy Number Policy Penny Covered Member ID Penny Member ID Guarantor Name 05/15/2024 1 [place] [employer] [place] [employer] [place]PP[place] [id number] [employer] [id number] [employer] 05/15/2024 [facility] CLAIMS DEPARTMENT [employer] 02/05/2021 1 [employer] [facility] (MEDICAID HMO) [employer] [id number] [employer] 05/15/2024 1 [place] [id number] A [employer] [id number] [employer] 09/30/2023 1 [facility] [employer] [id number] Pepe Sary Notes Date Note Type Note Provider Name and Address Organization Details Recorded Time 3 text/html Patient presents today for the initial evaluation with an interest in bariatric surgery. Patients first choice for bariatric surgery is sleeve Pt has been overweight most of their life. Has been 100lbs or more over weight for 10 years. Pt reports dyspnea joint pain and mobility issues related to excess weight. The pt is pursuing weight loss surgery because excess weight directly contributes to comorbidities including hypertension, GERD, anxiety, atrial fibrillation coronary heart failure, obstructive sleep apnea and does wear a CPAP. Patient is being followed by Dr. Brady head start director. He is to follow up in week. He is had recent heart catheterization, stress, echo and has recently had loop recorder placed yesterday. He was told by his head start director that needs to lose 50 lb immediately. Patient has not been able to tolerate any type of vigorous exercise secondary to heart failure. Diets include calorie counting high protein/low carb diet. Pt site physical hunger and boredom as prompts to eat. Struggles with portion size. DIET HX:The patient states that they have been overweight since young adulthoodThe patient states that they have been 100 lbs or more overweight 15-20 years.The patient started dieting at the age of ?Dieting methods that have been most successful in losing weight are calorie countingThe most weight ever lost on a single dieting attempt was 85lbs and this was maintained until 1 yearThe patient has attempted the following unsupervised diet attempts calorie countingThe Patient has followed the following supervised diet attempts noneThe following OTC or prescribed medications have been utilized for weight loss phentermineBehavior treatments for weight loss that have been attempted in the past were noneThe patient has utilized the following modes of exercise to help with weight loss walking, swimmingThe patient has not use self induced behaviors to help them lose weight in the past.Currently the patient admits to an eating history of skipping meals, snacking in the day and evening and late at night.The patient feels that the majority of their meals are prepared at home.Common triggers for causing the patient to overeat are physical hunger, anxiousness, boredom, makes me happy Lonnie Sanchez, DNP, POWDER SHOVELER, ANIMAL CARE GIVER-C [address] [facility], [place], [address], [facility] - [place] & [place] 10/02/2023 12:42:19 3 text/html RDN met w/ pt to complete initial nutritional assessment for intake of bariatric surgery. Pt is interested in sleeve. Height = 73 in. Weight = 352.6# (BMI = 46.5). Current Employment/Daily Activities: disabled and retired Past weight loss attempts: calorie counting, phentermine, walking, swimming Hx of eating disorder: Denies; does not suspect one PMH and meds list reviewed.Notes - heart issues; unable to find [employer] in stock; hx of adipex which was d/c'd with heart issues. Takes daily vitamin for men 50+. Vit. C and D3 Meal Pattern: diet recall submitted. Regular drinks include regular coffee, decaf coffee, sweet tea, milk, water. Pt states diet recall is typical. 1800 kcal/day is his current average intake B - 9:30 - 10:30 AM - 2 sandwiches made with 3 eggs fried in butter and conteh grease, 2 pc conteh and 4 slices butternut white bread; glass of whole milk. Starts drinking 1, 10 cup pot of coffee over several hoursS -skippedL - skippedS - skippedD - 6:30 PM - about 2 cups spaghetti and meatballs made with deer meat, Malone's traditional sauce, and Ghanaian meatballs with 1 glass sweet tea made with 1.5 cup sugar in 1 gallonS - skipped Frequency of eating out: 1x/month Social Hx reviewed.Notes - walks out to mailbox and around the house. Describes alcohol consumption monthly - 1 drink. Activity is restricted 2/2 head start director recommendations for heart health Recent changes: mental preparedness of major lifestyle change and reports cutting back on food portions Motivation for surgery: health issues Support after surgery: reports family support; is present today Goals for surgery: wants to lose enough weight to improve heart health and back pain INDY KIM RDN, LD [address] [facility], [place], [address], [facility] & [place] 10/02/2023 13:37:46 4 text/html The patient is here today to schedule bariatric surgery which is Robotic Sleeve. They have undergone all required pre-operative work up and screening and have been approved to proceed with surgery. They deny any recent changes in their medical history since originally seen for their intake history and physical exam. They have undergone a 1 hour education class by myself reviewing the entire surgical process what to expect pre-operatively, during their hospital stay and when they are discharged home. They have had the opportunity to ask questions and all questions have been addressed. They have also undergone a class with the tunnel worker and have received clear instructions on what is required regarding fluid intake, protein intake and vitamin consumption postoperatively. The patient is being managed by their PCP for their arthritis, a fib, coronary aterteriosclerosis, Diastolic heart failure, hypertension, obstructive sleep apnea and is currently stable. Micheal Archuleta DO [address], [place], [address], [facility] & [place] 12/17/2023 14:10:36 4 text/html Patient presents for 1wk Post-Op Check s/p Bariatric surgery. Patient had a gastric Laparoscopic sleeve gastrectomyRobotic assisted surgery performed on 2023 . Today patient is on post-operative day # 5. Patient is doing well. Tolerating PO intake w/out issue. Getting 60-80g/day protein. Pt reports good hydration. Is consuming 60 oz of water a day.Taking recommended vitamins via patch and PPI.Pt Denies : abdominal pain, prandial issues Vomiting, or bladder issues. He has had some nausea and felling clammy, along with diarrhea. He has taken 2 doses of of Lasix (40 mg). He did not take this this morning. States he forgot that they were in his pill container that he takes every morning.Total Weight loss 19.2 pounds.Patient has not seen PCP since surgery.Path benignPatient is happy with their quality of life after Weight loss Surgery. Lonnie Sanchez DNP, POWDER SHOVELER, ANIMAL CARE GIVER-C [address], [place], [address], [facility] & [place] 12/30/2023 11:51:59 4 text/html Patient presents the office today for routine 3 month follow-up status post bariatric gastric sleeve gastrectomyRobotic assisted surgery performed on 2023. Patient doing well. Reports q.i.d. small meal intake. Reports 90g/dy protein intake and good hydration.Patient is drinking 64 ounces of water a day.Daily Calories 800-1000Taking routine vitamins via patch as advised.Heartburn/gastr oesophageal reflux: deniesPt Denies : abdominal pain, prandial issues Nausea, Vomiting, bowel or bladder issuesTotal Weight loss Since last office visit has been 24.4 lbsPt is happy with their quality of life after Weight loss Surgery.He sees his primary care provider every month.He is to see his head start director (Caitlyn) in [facility]. He also goes to [facility]. There, he sees Dr. Goncalves. Lonnie Sanchez DNP, POWDER SHOVELER, ANIMAL CARE GIVER-C [address], [place], [address], [facility] & [place] 02/12/2024 09:34:35 4 text/html ADIME TemplateA: SARINA met w/Pepe Okeefe for 1 month f/up via office visit s/p Sleeve. Pt weight at MD Consult: 343.8#Current Weight: 318.4#Total Weight Change: -25.4#Notes on weight: Signs/SymptomsN/V/C/D: none Pertinent Labs/Meds/Vitamin regimen: taking vitamins as recommended, patch Physical activity: walking Tracking food/beverages consumed: Est. daily kcal intake: 800-1000 Est. daily protein intake: 90 gm Est. daily fluid intake: 64 oz Meal Pattern: 4 times a day Additional notes/concerns: Patient doing well I: RDN Recommendations/Goals:1 . Continue tracking intake2. Work toward 2077-6764 kcal for 3 mo appt.3. Physical activity 3 times a week Pt verbally agreed to recommendations and goals. Denied further questions/concerns. M/E: RD will monitor weight loss, labs, and lifestyle modifications. Will f/up as scheduled or PRN. . YAS PIERRE RD, LD [address], [place], [address], [facility] [place] - [place] & [place] 02/12/2024 13:48:04
--- OUTSIDE RECORDS SUMMARY | 2025-03-10 13:55 | XMS_ITS | Data Portability ---
Author Organization CIRA LATESHA Kohler WILSON CLOSED Address [address] [facility] [address] [facility] [place] [address] Care Team Providers Care Program Manager Slp Name Role Phone Marisa SMALLWOOD Primary Care Provider RONALD ELIZABETH Snuff Drier Assessment No assessment recorded. Plan of Treatment Reminders Order Date Submit Date Provider Last Modified By Organization Details Last Modified Time Details Appointments None recorded. Lab urinalysis , dipstick, auto [address] [facility], [address], [place], [address], 7 21:36:05 urinalysis , dipstick, auto [address] [facility], [address], [place], [address], 7 18:03:20 urinalysis , dipstick, auto [address] [facility], [address], [place], [address], 7 16:51:46 Referral None recorded. Procedures None recorded. Surgeries None recorded. Imaging None recorded. Medication Orders oxybutynin chloride ER 15 mg tablet,ext ended release 24 hr 2016 017 INTERFACE [facility] [id number], [address] [facility] , [place], [address], 7 18:04:18 oxybutynin chloride ER 15 mg tablet,ext ended release 24 hr 2016 017 INTERFACE [facility] [id number], [address] [facility] [place], [address], 7 17:11:39 Patient TargetsNo targets recorded. Patient Instructions Encounter Date Encounter Id Patient Instructions Last Modified By Organization Details Last Modified Time 09/26/2017 [id number] healthy together KAYA Not availabl e 09/29/2017 12:14:58 neurogenic bladder: care instructions KAYA Not available 09/29/2017 12:15:12 Reason for Referral None Reported. Results Created Date Observation Date Name Description Value Unit Range Abnormal Flag Note LastModifiedBy Organization Detail LastModifiedTime 09/26/20 17 09/26/2017 urina lysis , dipst ick, auto Unknown Analyte Yellow Not Available [facility] [address] [place] [address] [address], [address], 09/26/2017 15:16:26 09/26/20 17 09/26/2017 urina lysis , dipst ick, auto Unknown Analyte Clear Not Available [facility] [address] [place] [address] [address], [address], 09/26/2017 15:16:26 09/26/20 17 09/26/2017 urina lysis , dipst ick, auto Unknown Analyte 1.015 Not Available [facility] [address] [place] [address] [address], [place], [address], 09/26/2017 15:16:26 09/26/20 17 09/26/2017 urina lysis , dipst ick, auto Unknown Analyte 5.0 Not Available [facility] [address], [place], [address], 09/26/2017 15:16:26 09/26/20 17 09/26/2017 urina lysis , dipst ick, auto Unknown Analyte Negati ve Not Available [facility] [address], [place], [address], 09/26/2017 15:16:26 09/26/20 17 09/26/2017 urina lysis , dipst ick, auto Unknown Analyte Negati ve Not Available [facility] [address], [place], [address], 09/26/2017 15:16:26 09/26/20 17 09/26/2017 urina lysis , dipst ick, auto Unknown Analyte Negtiv e Not Available [facility] [address], [place], [address], 09/26/2017 15:16:26 09/26/20 17 09/26/2017 urina lysis , dipst ick, auto Unknown Analyte Normal Not Available [facility] [address], [place], [address], 09/26/2017 15:16:26 09/26/20 17 09/26/2017 urina lysis , dipst ick, auto Unknown Analyte Negati ve Not Available [facility] [address], [place], [address], 09/26/2017 15:16:26 09/26/20 17 09/26/2017 urina lysis , dipst ick, auto Unknown Analyte Normal Not Available [facility] [address], [place], [address], 09/26/2017 15:16:26 09/26/20 17 09/26/2017 urina lysis , dipst ick, auto Unknown Analyte Negati ve Not Available [facility] [address], [place], [address], 09/26/2017 15:16:26 09/26/20 17 09/26/2017 urina lysis , dipst ick, auto Unknown Analyte Negati ve Not Available [facility] [address], [place], [address], 09/26/2017 15:16:26 09/26/20 17 09/26/2017 urina lysis , dipst ick, auto Unknown Analyte Clean Catch Not Available [facility] [address], [place], [address], 09/26/2017 15:16:26 09/26/20 17 09/26/2017 urina lysis , dipst ick, auto Unknown Analyte Automa wily Not Available [facility] [address], [place], [address], 09/26/2017 15:16:26 05/07/20 17 05/07/2017 urina lysis , dipst ick, auto Unknown Analyte Yellow Not Available [facility] [address], [place], [address], 05/07/2017 15:02:40 05/07/20 17 05/07/2017 urina lysis , dipst ick, auto Unknown Analyte Clear Not Available [facility] [address], [place], [address], 05/07/2017 15:02:40 05/07/20 17 05/07/2017 urina lysis , dipst ick, auto Unknown Analyte 1.020 Not Available [facility] [address], [place], [address], 05/07/2017 15:02:40 05/07/20 17 05/07/2017 urina lysis , dipst ick, auto Unknown Analyte 5.0 Not Available [facility] [address], [place], [address], 05/07/2017 15:02:40 05/07/20 17 05/07/2017 urina lysis , dipst ick, auto Unknown Analyte Negati ve Not Available [facility] [address], [place], [address], 05/07/2017 15:02:40 05/07/20 17 05/07/2017 urina lysis , dipst ick, auto Unknown Analyte Negati ve Not Available [facility] [address], [place], [address], 05/07/2017 15:02:40 05/07/20 17 05/07/2017 urina lysis , dipst ick, auto Unknown Analyte Negtiv e Not Available [facility] [address], [place], [address], 05/07/2017 15:02:40 05/07/20 17 05/07/2017 urina lysis , dipst ick, auto Unknown Analyte Normal Not Available [facility] [address], [place], [address], 05/07/2017 15:02:40 05/07/20 17 05/07/2017 urina lysis , dipst ick, auto Unknown Analyte Negati ve Not Available [facility] [address], [place], [address], 05/07/2017 15:02:40 05/07/20 17 05/07/2017 urina lysis , dipst ick, auto Unknown Analyte Normal Not Available [facility] [address], [place], [address], 05/07/2017 15:02:40 05/07/20 17 05/07/2017 urina lysis , dipst ick, auto Unknown Analyte Negati ve Not Available [facility] [address], [place], [address], 05/07/2017 15:02:40 05/07/20 17 05/07/2017 urina lysis , dipst ick, auto Unknown Analyte Negati ve Not Available [facility] [address], [place], [address], 05/07/2017 15:02:40 05/07/20 17 05/07/2017 urina lysis , dipst ick, auto Unknown Analyte Clean Catch Not Available [facility] [address], [place], [address], 05/07/2017 15:02:40 05/07/20 17 05/07/2017 urina lysis , dipst ick, auto Unknown Analyte Automa wily Not Available [facility] [address], [place], [address], 05/07/2017 15:02:40 04/07/20 17 04/07/2017 urina lysis , dipst ick, auto Unknown Analyte Yellow Not Available [facility] [address] [place] [address] [address], [place], [address], 04/07/2017 16:41:56 04/07/20 17 04/07/2017 urina lysis , dipst ick, auto Unknown Analyte Clear Not Available [facility] [address] [place] [address] [address], [place], [address], 04/07/2017 16:41:56 04/07/20 17 04/07/2017 urina lysis , dipst ick, auto Unknown Analyte 1.020 Not Available [facility] [address], [place], [address], 04/07/2017 16:41:56 04/07/20 17 04/07/2017 urina lysis , dipst ick, auto Unknown Analyte 7.0 Not Available [facility] [address], [place], [address], 04/07/2017 16:41:56 04/07/20 17 04/07/2017 urina lysis , dipst ick, auto Unknown Analyte Negati ve Not Available [facility] [address] [place] [address] [address], [place], [address], 04/07/2017 16:41:56 04/07/20 17 04/07/2017 urina lysis , dipst ick, auto Unknown Analyte Negati ve Not Available [facility] [address], [place], [address], 04/07/2017 16:41:56 04/07/20 17 04/07/2017 urina lysis , dipst ick, auto Unknown Analyte Negtiv e Not Available [facility] [address], [place], [address], 04/07/2017 16:41:56 04/07/20 17 04/07/2017 urina lysis , dipst ick, auto Unknown Analyte Normal Not Available [facility] [address], [place], [address], 04/07/2017 16:41:56 04/07/20 17 04/07/2017 urina lysis , dipst ick, auto Unknown Analyte Negati ve Not Available [facility] [address], [place], [address], 04/07/2017 16:41:56 04/07/20 17 04/07/2017 urina lysis , dipst ick, auto Unknown Analyte 1 mg/dl Not Available [facility] [address], [place], [address], 04/07/2017 16:41:56 04/07/20 17 04/07/2017 urina lysis , dipst ick, auto Unknown Analyte Negati ve Not Available [facility] [address], [place], [address], 04/07/2017 16:41:56 04/07/20 17 04/07/2017 urina lysis , dipst ick, auto Unknown Analyte Negati ve Not Available [facility] [address], [place], [address], 04/07/2017 16:41:56 04/07/20 17 04/07/2017 urina lysis , dipst ick, auto Unknown Analyte Clean Catch Not Available [facility] [address], [place], [address], 04/07/2017 16:41:56 04/07/20 17 04/07/2017 urina lysis , dipst ick, auto Unknown Analyte Automa wily Not Available [facility] [address], [place], [address], 04/07/2017 16:41:56 09/29/20 17 09/26/2017 CT, abdom en + pelvi s, w/o contr ast [facility] [address] [place] [address], [place] [address] Patien t Name: DILIP CHAPIN Patien t : [phone] Patien t Orderi [facility] er: ELENITA MATTHEW EXAM DATE: 2016 EXAM: CT ABD/PE LVIS WITHOU T CONTRA ST CLINIC AL INFORM ATION: Right flank pain. TECHNI QUE: Multip le axial CT images of the abdome n and pelvis were obtain ed withou t inject ion of IV contra st using the urinar y stone protoc ol. COMPAR GRAHAM: None. FINDIN GS ON CT ABDOME N: LOWER THORAX : Lung bases are clear. No obviou s cardia c abnorm ality URINAR Y TRACT: Both kidney s are normal in locati on, size, shape, outlin e and parenc hymal thickn ess. No stones or calcif icatio ns are seen within the kidney s ureter s or urinar y bladde r. No hydron ephros is, hydrou reter or perine phric strand ing is presen t. OTHER UPPER ABDOMI NAL ORGANS : Liver, gallbl adder, spleen , pancre as, and adrena ls are normal within the limits on interp retati on impose d by the absenc e of IV contra st. BOWEL AND MESENT BAIRON: Stomac h, small bowel and colon are normal . No mesent lurdes lympha denopa thy or perito son free fluid. RETROP ERITON EUM: Limite d evalua tion due to absenc e of IV contra st. Aorta, IVC and their branch es are normal in calibe r. No retrop eriton eal lympha denopa thy. ABDOMI NAL WALL AND SKELET AL STRUCT URES: Normal . FINDIN GS ON CT PELVIS : PELVIC CAVITY : Urinar y bladde r and rectos igmoid are normal . Prosta te and semina l vesicl es are normal . No pelvic or inguin al lympha denopa thy, mass or fluid. MUSCUL OSKELE SALUD STRUCT URES: Normal . COMBIN ED IMPRES VENKAT: 1. No CT eviden ce of urinar y tract stone. 2. No acute abnorm ality. Interp reted By: Chel Reyes MD Electr onical ly Signed By: Chel Reyes MD on 017 10:[email or web address] Radiology [facility] [address] [facility], [place], [address], 09/30/2017 17:19:31 Result Notes None recorded. Problems Name Problem SNOMED Code Status Onset Date Resolution Date Notes Provider Name and Address Organization Details Recorded Time Micturiti on finding Active 2014 From Automated Load;Provi beny: Pura Matthew atus: Active Not Available [facility] 6 08:13:13 Impotence Active 2014 From Automated Load;Provi beny: Pura Matthew atus: Active Not Available [facility] 6 08:13:13 Urinary incontine nce 099062318 Active 2014 Provider: Pura Matthew atus: Active Not Available [facility] 6 08:13:13 Urge incontine nce of urine 83205645 Active 2014 Provider: Pura Matthew: Active Not Available [facility] 6 08:13:13 Neurogeni c dysfuncti on of urinary bladder 555533739 Active 2014 Provider: Pura Matthew: Active Not Available [facility] 6 08:13:13 Problem Notes None recorded. Procedures Surgical History Date Name Laterality Status Provider Name and Address Organization Details Recorded Time 3 Other completed [facility] 04/07/2017 16:27:46 0 Removal of testis completed [facility] 04/07/2017 16:26:07 Other completed [facility] 04/07/2017 16:28:26 Imaging Results Imaging Date Name Status LastModified by Organiz ation Details LastModified Time 09/26/2017 CT, abdomen + pelvis, w/o contrast completed [address] [place] [address] Radiology [facility] [address] [place], [address], 09/30/2017 17:19:31 Procedure Notes None recorded. Medical Equipment None Reported. Allergies No known drug allergies Medications Name Sig Start Date Stop Date Status Note LastModified by Organization Details LastModified Time oxybutynin chloride ER 15 mg tablet,exte nded release 24 hr TAKE ONE TABLET BY MOUTH DAILY 2016 active Not Available Not Available Not Avai lable Multiple Vitamin capsule Daily active Frequency: daily;Medi cation Descriptio n: multivitam in; Dosage:1; Route:oral ; refills:3 Not Available Not Available Not Available oxybutynin chloride ER 10 mg tablet,exte nded release 24 hr TAKE ONE TABLET BY MOUTH DAILY 2017 active Not Available Not Available Not Avai lable Restoril 15 mg capsule active Medication Descriptio n: temazepam; Route:oral ; refills:0 Not Available Not Available Not Available [place] 5 mg-325 mg tablet active Medication Descriptio n: acetaminop hen-hydroc odone; Route:oral ; refills:0; Quantity:6 tablet Not Available Not Available Not Available Effexor XR active Not Available Not Av ailable Not Available lisinopril active Not Available Not Av ailable Not Available Vitals Date Recorded Body height Body mass index (BMI) Body weight Heart rate Systolic blood pressure Diastolic blood pressure Provider Name and Address Organization Details Last Updated DateTime 7 182.88 cm 33.9 kg/m2 781604. 09 g 85 /min 117 mm[Hg] 67 mm[Hg] Lizzy Isaacs [facility] 7 16:22:11 Date Recorded Body height Body mass index (BMI) Body weight Heart rate Systolic blood pressure Diastolic blood pressure Provider Name and Address Organization Details Last Updated DateTime 7 182.88 cm 33.9 kg/m2 144213. 09 g 67 /min 130 mm[Hg] 82 mm[Hg] Ebenezer Ling [facility] 7 15:02:27 Date Recorded Body height Body mass index (BMI) Body weight Heart rate Systolic blood pressure Diastolic blood pressure Provider Name and Address Organization Details Last Updated DateTime 7 182.88 cm 33.9 kg/m2 758564. 09 g 90 /min 140 mm[Hg] 81 mm[Hg] Deseriee [facility] 7 15:15:24 Social History Question Answer Notes LastModified by Organizat ion Details LastModified Time Tobacco Smoking Status Never Smoker Lizzy Isaacs [facility] 04/07/2017 16:24:56 Marital Status Informatio n not available 04/07/2017 What Was The Date Of Your Most Recent Tobacco Screening? 09/26/2017 Information n ot available 12/14/2019 Sex: Unknown Functional Status Question Answer Note LastModified by Organization D etails LastModified Time What is your level of alcohol consumption? None Information not available 04/07/2017 What is your occupation? Disabled Information not available 04/07/2017 Mental Status None recorded. Family History Relationship Description Onset Age of this Age Resolved Age Notes LastModified by Organization Details LastModified Time Mother Diabetes mellitus Not available 2016 16:24:41 Medical History Condition Response Anxiety Disorder Y Depression Y Past Encounters Encounter ID Performer Location Encounter Start Date Encounter Closed Date Diagnosis/Indication Diagnosis SNOMED-CT Code Diagnosis ICD10 Code Diagnosis Note [id number] TELMA MATTHEW MD [facility] [address] [address] 04/07/2017 15:52:46 04/07/2017 17:15:21 Neurogenic urinary bladder 554316102 N31.9 we will arrange for a renal ultrasound . He will try medication and follow-up in 1 month. He will call for results of his ultrasound . [id number] TELMA MATTHEW MD [facility] [address] [place] [address] 05/07/2017 14:46:11 05/08/2017 09:32:03 Neurogenic dysfunction of urinary bladder 738515986 N31.9 continue oxybutynin chloride extended release 15 mg per day follow up 6 months [id number] TELMA MATTHEW MD [facility] [address] [address] 09/26/2017 14:37:01 09/29/2017 10:02:13 Neurogenic urinary bladder 152864446 N31.9 He was instructed to resume his anticholin ergic therapy. Right flank pain 0760624 09 R10.9 I suggest we arrange for CT scan without IV or by mouth contrast to rule out stones. He will contact me for results. Health Concerns Section Related Observation LastModified by Organization Detai ls LastModified Time None Recorded Concern Status LastModified by Organization Details LastModified Time None Recorded Advance Directives Directive None Recorded Payers Insurance Date Sequence Insurance Name Policy Number Policy Penny Covered Member ID Penny Member ID Guarantor Name 07/22/2017 [employer] CLAIM[employer] DEPARTMENT [id number] Disabled Dilip Chapin Notes Date Note Type Note Provider Name and Address Organization Details Recorded Time 04/07/2017 text/html patient was last seen here in October 2015 that time he was started on oxybutynin chloride extended release 10 mg per day for urgency incontinence. He has long history of chronic back issues. He has a nerve stimulator in place is having more significant back pathology and has had some recurrence of dribbling incontinence. He also has some issues with wetness at night. He has had no urinary infections. I suggest we increase his oxybutynin chloride to 15 mg per day. We will also obtain a renal ultrasound. TELMA MATTHEW MD [facility] [place], [address], [facility] 04/07/2017 16:52:27 05/07/2017 text/html patient is here for 1 month follow-up. He had been on oxybutynin chloride extended release 10 mg per day but developed some breakthrough urgency incontinence. At last visit I increased him to 15 mg per day. This is resolved his incontinence. He is having no difficulty voiding. He is dry at night with not. ? 1 -2. I had ordered a renal ultrasound to follow-up on his neurogenic bladder and to assess for hydronephrosis. This apparently was denied from his Workmen's Compensation policy which is being appealed by his corporate associate attorney. TELMA MATTHEW MD [facility] [place], [address], [facility] 05/07/2017 18:04:58 09/26/2017 text/html Patient was last seen in the in April for neurogenic bladder. He was placed on oxybutynin chloride extended release 15 mg which worked well. He had no further incontinence episodes and had nocturia 1-2 times per night. He recently developed some right-sided flank discomfort. In thought it may be associated with his oxybutynin. He discontinued that medication 2 weeks ago. His incontinence reoccurred slightly. I had ordered a renal ultrasound at that time but it was denied through his Workmen's Compensation policy. Apparently at that time his corporate associate attorney was working on having it covered but was never completed. He has no previous history of stones. TELMA MATTHEW MD [facility] [place], [address], [facility] 09/28/2017 21:36:42
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
== END 2025-03-10 23:59 | disposition home or self-care (01) ==
LOC: RAD 13:53
PROVIDERS: PCP Nurse Practitioner Family; Visit Provider Nurse Practitioner Family
DX: M54.9 Dorsalgia, unspecified (principal); V89.2XXD Person injured in unspecified motor-vehicle accident, traffic, subsequent encounter
CPT/HCPCS: 72083

== ENCOUNTER 2025-03-24 14:41 | Outpatient (CLI) | payer BC, SELFPAY ==
--- OUTSIDE RECORDS SUMMARY | 2025-03-24 14:45 | XMS_ITS | Data Portability ---
Author Organization CIRA LATESHA Kohler BRYANT CLOSED Address [address] [place] [address] Care Team Providers Care Land Agent Name Role Phone Marisa SMALLWOOD Primary Care Provider RONALD ELIZABETH Costume Mistress Assessment No assessment recorded. Plan of Treatment Reminders Order Date Submit Date Provider Last Modified By Organization Details Last Modified Time Details Appointments None recorded. Lab urinalysis , dipstick, auto [address] [facility], [address], [address], [place], [address], 7 21:36:05 urinalysis , dipstick, auto [address] [facility], [address], [address], [place], [address], 7 18:03:20 urinalysis , dipstick, auto [address] [facility], [address], [address], [place], [address], 7 16:51:46 Referral None recorded. Procedures None recorded. Surgeries None recorded. Imaging None recorded. Medication Orders oxybutynin chloride ER 15 mg tablet,ext ended release 24 hr 2016 017 INTERFACE [facility] [id number], [address] , [place], [address], 7 18:04:18 oxybutynin chloride ER 15 mg tablet,ext ended release 24 hr 2016 017 INTERFACE [facility] [id number], [address] [place], [address], 7 17:11:39 Patient TargetsNo targets recorded. Patient Instructions Encounter Date Encounter Id Patient Instructions Last Modified By Organization Details Last Modified Time 09/26/2017 [id number] healthy together KAYA Not availabl e 09/29/2017 12:14:58 neurogenic bladder: care instructions KAYA Not available 09/29/2017 12:15:12 Reason for Referral None Reported. Results Created Date Observation Date Name Description Value Unit Range Abnormal Flag Note LastModifiedBy Organization Detail LastModifiedTime 09/26/20 17 09/26/2017 urina lysis , dipst ick, auto Unknown Analyte Yellow Not Available [facility] [address] [place] [address] [address], [place], [address], 09/26/2017 15:16:26 09/26/20 17 09/26/2017 urina lysis , dipst ick, auto Unknown Analyte Clear Not Available [facility] [address] [place] [address] [address], [address], 09/26/2017 15:16:26 09/26/20 17 09/26/2017 urina lysis , dipst ick, auto Unknown Analyte 1.015 Not Available [facility] [address] [place] [address] [address], [place], [address], 09/26/2017 15:16:26 09/26/20 17 09/26/2017 urina lysis , dipst ick, auto Unknown Analyte 5.0 Not Available [facility] [place] [facility] [address], [place], [address], 09/26/2017 15:16:26 09/26/20 17 09/26/2017 urina lysis , dipst ick, auto Unknown Analyte Negati ve Not Available [facility] [address], [place], [address], 09/26/2017 15:16:26 09/26/20 17 09/26/2017 urina lysis , dipst ick, auto Unknown Analyte Negati ve Not Available [facility] [address], [place], [address], 09/26/2017 15:16:26 09/26/20 17 09/26/2017 urina lysis , dipst ick, auto Unknown Analyte Negtiv e Not Available [facility] [address], [place], [address], 09/26/2017 15:16:26 09/26/20 17 09/26/2017 urina lysis , dipst ick, auto Unknown Analyte Normal Not Available [facility] [address], [place], [address], 09/26/2017 15:16:26 09/26/20 17 09/26/2017 urina lysis , dipst ick, auto Unknown Analyte Negati ve Not Available [facility] [address], [place], [address], 09/26/2017 15:16:26 09/26/20 17 09/26/2017 urina lysis , dipst ick, auto Unknown Analyte Normal Not Available [facility] [address], [place], [address], 09/26/2017 15:16:26 09/26/20 17 09/26/2017 urina lysis , dipst ick, auto Unknown Analyte Negati ve Not Available [facility] [address], [place], [address], 09/26/2017 15:16:26 09/26/20 17 09/26/2017 urina lysis , dipst ick, auto Unknown Analyte Negati ve Not Available [facility] [address], [place], [address], 09/26/2017 15:16:26 09/26/20 17 09/26/2017 urina lysis , dipst ick, auto Unknown Analyte Clean Catch Not Available [facility] [address], [place], [address], 09/26/2017 15:16:26 09/26/20 17 09/26/2017 urina lysis , dipst ick, auto Unknown Analyte Automa wily Not Available [facility] [address], [place], [address], 09/26/2017 15:16:26 05/07/20 17 05/07/2017 urina lysis , dipst ick, auto Unknown Analyte Yellow Not Available [facility] [address], [place], [address], 05/07/2017 15:02:40 05/07/20 17 05/07/2017 urina lysis , dipst ick, auto Unknown Analyte Clear Not Available [facility] [address], [place], [address], 05/07/2017 15:02:40 05/07/20 17 05/07/2017 urina lysis , dipst ick, auto Unknown Analyte 1.020 Not Available [facility] [address], [place], [address], 05/07/2017 15:02:40 05/07/20 17 05/07/2017 urina lysis , dipst ick, auto Unknown Analyte 5.0 Not Available [facility] [address], [place], [address], 05/07/2017 15:02:40 05/07/20 17 05/07/2017 urina lysis , dipst ick, auto Unknown Analyte Negati ve Not Available [facility] [address], [place], [address], 05/07/2017 15:02:40 05/07/20 17 05/07/2017 urina lysis , dipst ick, auto Unknown Analyte Negati ve Not Available [facility] [address], [place], [address], 05/07/2017 15:02:40 05/07/20 17 05/07/2017 urina lysis , dipst ick, auto Unknown Analyte Negtiv e Not Available [facility] [address], [place], [address], 05/07/2017 15:02:40 05/07/20 17 05/07/2017 urina lysis , dipst ick, auto Unknown Analyte Normal Not Available [facility] [address], [place], [address], 05/07/2017 15:02:40 05/07/20 17 05/07/2017 urina lysis , dipst ick, auto Unknown Analyte Negati ve Not Available [facility] [address], [place], [address], 05/07/2017 15:02:40 05/07/20 17 05/07/2017 urina lysis , dipst ick, auto Unknown Analyte Normal Not Available [facility] [address], [place], [address], 05/07/2017 15:02:40 05/07/20 17 05/07/2017 urina lysis , dipst ick, auto Unknown Analyte Negati ve Not Available [facility] [address], [place], [address], 05/07/2017 15:02:40 05/07/20 17 05/07/2017 urina lysis , dipst ick, auto Unknown Analyte Negati ve Not Available [facility] [address], [place], [address], 05/07/2017 15:02:40 05/07/20 17 05/07/2017 urina lysis , dipst ick, auto Unknown Analyte Clean Catch Not Available [facility] [address], [place], [address], 05/07/2017 15:02:40 05/07/20 17 05/07/2017 urina lysis , dipst ick, auto Unknown Analyte Automa wily Not Available [facility] [address], [place], [address], 05/07/2017 15:02:40 04/07/20 17 04/07/2017 urina lysis , dipst ick, auto Unknown Analyte Yellow Not Available [facility] [address] [place] [address] [address], [place], [address], 04/07/2017 16:41:56 04/07/20 17 04/07/2017 urina lysis , dipst ick, auto Unknown Analyte Clear Not Available [facility] [address] [place] [address] [address], [place], [address], 04/07/2017 16:41:56 04/07/20 17 04/07/2017 urina lysis , dipst ick, auto Unknown Analyte 1.020 Not Available [facility] [address], [place], [address], 04/07/2017 16:41:56 04/07/20 17 04/07/2017 urina lysis , dipst ick, auto Unknown Analyte 7.0 Not Available [facility] [address], [place], [address], 04/07/2017 16:41:56 04/07/20 17 04/07/2017 urina lysis , dipst ick, auto Unknown Analyte Negati ve Not Available [facility] [address] [place] [address] [address], [place], [address], 04/07/2017 16:41:56 04/07/20 17 04/07/2017 urina lysis , dipst ick, auto Unknown Analyte Negati ve Not Available [facility] [address], [place], [address], 04/07/2017 16:41:56 04/07/20 17 04/07/2017 urina lysis , dipst ick, auto Unknown Analyte Negtiv e Not Available [facility] [address], [place], [address], 04/07/2017 16:41:56 04/07/20 17 04/07/2017 urina lysis , dipst ick, auto Unknown Analyte Normal Not Available [facility] [address], [place], [address], 04/07/2017 16:41:56 04/07/20 17 04/07/2017 urina lysis , dipst ick, auto Unknown Analyte Negati ve Not Available [facility] [address], [place], [address], 04/07/2017 16:41:56 04/07/20 17 04/07/2017 urina lysis , dipst ick, auto Unknown Analyte 1 mg/dl Not Available [facility] [address], [place], [address], 04/07/2017 16:41:56 04/07/20 17 04/07/2017 urina lysis , dipst ick, auto Unknown Analyte Negati ve Not Available [facility] [address], [place], [address], 04/07/2017 16:41:56 04/07/20 17 04/07/2017 urina lysis , dipst ick, auto Unknown Analyte Negati ve Not Available [facility] [address], [place], [address], 04/07/2017 16:41:56 04/07/20 17 04/07/2017 urina lysis , dipst ick, auto Unknown Analyte Clean Catch Not Available [facility] [address], [place], [address], 04/07/2017 16:41:56 04/07/20 17 04/07/2017 urina lysis , dipst ick, auto Unknown Analyte Automa wily Not Available [facility] [address], [place], [address], 04/07/2017 16:41:56 09/29/20 17 09/26/2017 CT, abdom en + pelvi s, w/[facility] [address] [place] [address], [place] [address] Patien t Name: DILIP CHAPIN Patien t : 973 Patien t Orderi [facility] er: ELENITA MATTHEW EXAM DATE: [...] Chel Reyes MD on 017 10:[address] [facility] [address] [facility], [place], [address], 09/30/2017 17:19:31 Result Notes None recorded. Problems Name Problem SNOMED Code Status Onset Date Resolution Date Notes Provider Name and Address Organization Details Recorded Time Micturiti on finding Active 2014 From Automated Load;Provi beny: Pura Matthew atus: Active Not Available [facility] 6 08:13:13 Impotence Active 2014 From Automated Load;Provi beny: Pura Matthew atus: Active Not Available [facility] 6 08:13:13 Urinary incontine nce 891709751 Active 2014 Provider: Pura Matthew atus: Active Not Available [facility] 6 08:13:13 Urge incontine nce of urine 84694008 Active 2014 Provider: Pura Matthew: Active Not Available [facility] 6 08:13:13 Neurogeni c dysfuncti on of urinary bladder 450366300 Active 2014 Provider: Pura Matthew: Active Not Available [facility] 6 08:13:13 Problem Notes None recorded. Procedures Surgical History Date Name Laterality Status Provider Name and Address Organization Details Recorded Time 3 Other completed [facility] 04/07/2017 16:27:46 0 Removal of testis completed [facility] 04/07/2017 16:26:07 Other completed [facility] 04/07/2017 16:28:26 Imaging Results None recorded. Procedure Notes None recorded. Medical Equipment None [...] refills:0 Not Available Not Available Not Available [place] 5 mg-325 mg tablet active Medication Descriptio [...] Updated DateTime 7 182.88 cm 33.9 kg/m2 752553. 09 g 85 /min 117 mm[Hg] 67 mm[Hg] [facility] 7 16:22:11 Date Recorded Body height Body mass index (BMI) Body weight Heart rate Systolic blood pressure Diastolic blood pressure Provider Name and Address Organization Details Last Updated DateTime 7 182.88 cm 33.9 kg/m2 863662. 09 g 67 /min 130 mm[Hg] 82 mm[Hg] Ebenezer Ling [facility] 7 15:02:27 Date Recorded Body height Body mass index (BMI) Body weight Heart rate Systolic blood pressure Diastolic blood pressure Provider Name and Address Organization Details Last Updated DateTime 7 182.88 cm 33.9 kg/m2 408741. 09 g 90 /min 140 mm[Hg] 81 mm[Hg] Katie Giles [facility] 7 15:15:24 Social History Question Answer Notes LastModified by Organizat ion Details LastModified Time Tobacco Smoking Status Never Smoker Lizzy Isaacs [facility] 04/07/2017 16:24:56 Marital Status Informatio n [...] SNOMED-CT Code Diagnosis ICD10 Code Diagnosis Note [id number] TELMA MATTHEW MD [facility] [address] [place] [address] 04/07/2017 15:52:46 04/07/2017 17:15:21 Neurogenic urinary bladder 917604241 N31.9 we will arrange for a renal ultrasound . He will try medication and follow-up in 1 month. He will call for results of his ultrasound . [id number] MD [facility] [address] [place] [address] 05/07/2017 14:46:11 05/08/2017 09:32:03 Neurogenic dysfunction of urinary bladder 070455396 N31.9 continue oxybutynin chloride extended release 15 mg per day follow up 6 months [id number] MD [facility]FIN [facility] [address] [place] [address] 09/26/2017 14:37:01 09/29/2017 10:02:13 Neurogenic urinary bladder [id number] N31.9 He was instructed to resume his anticholin ergic therapy. Right flank pain [id number] R10.9 I suggest we arrange for [...] ID Penny Member ID Guarantor Name 07/22/2017 [employer] CLAIMS DEPARTMENT [id number] Disabled Dilip Chapin Notes Date Note Type [...] obtain a renal ultrasound. TELMA MATTHEW MD [address] [place] [address], [address], [place] [facility] 04/07/2017 16:52:27 05/07/2017 text/html patient is here for 1 month follow-up. He had been on oxybutynin chloride extended release 10 mg per day but developed some breakthrough urgency incontinence. At last visit I increased him to 15 mg per day. This is resolved his incontinence. He is having no difficulty voiding. He is dry at night with not. 1-2. I had ordered a renal ultrasound to follow-up on his neurogenic bladder and to assess for hydronephrosis. 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, [address], [facility] 05/07/2017 18:04:58 09/26/2017 text/html Patient [...] Compensation policy. Apparently at that time his winch runner was working on having it covered but was never completed. He has no previous history of stones[place], [address], [facility] 09/28/2017 21:36:42
--- OUTSIDE RECORDS SUMMARY | 2025-03-24 14:45 | XMS_ITS | Data Portability ---
Author Organization [place] - [facility] & KAVON Ritter ADMIN Address [address] [place] [id number] Care Team Providers Care Food Quality Technician Name Role Phone MIGUEL BRISENO Primary Care [...] the staple line. 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 [...] Lab CBC w/ auto diff 02/11/2 024 [place] [facility], [address], [place], [address], 04/24/202 4 20:35:51 CMP, serum or plasma 2023 024 [place] [facility], [address], [address], [place], [address], 4 20:35:52 HbA1c (hemoglobin A1c), blood 2023 024 [place] [facility], [address], [address], [place], [address], 4 20:35:55 iron + TIBC + ferritin, serum 2023 024 [place] [facility], [address], [address], [place], [address], 4 20:35:49 folate, serum 2023 024 [place] [facility], [address], [address], [place], [address], 4 20:35:56 vitamin D, 25-hydroxy, total, serum 2023 024 [place] [facility], [address], [address], [place], [address], 4 20:35:58 vitamin E, serum 2023 024 [place], [address], [address], [place], [address], 4 20:35:54 vitamin A (retinol), serum 2023 024 [place] [facility], [address], [address], [place], [address], 4 20:35:57 TSH + free T4, serum 2023 024 [place] [facility], [address], [address], [place], [address], 4 20:35:50 prealbumin, serum 2023 024 [place] [facility], [address], [address], [place], [address], 4 20:36:00 thiamine, QN, blood 2023 024 [place] [facility], [address], [address], [place], [address], 4 20:35:59 methylmalon ate, QN, serum or plasma 2023 024 [place] [facility], [address], [address], [place], [address], 4 20:36:00 lipid panel, serum 2023 024 [place] [facility], [address], [address], [place], [address], 4 20:35:53 CBC w/ auto diff 2023 024 [place] [facility], [address], [address], [place], [address], 4 05:39:14 CMP, serum or plasma 2023 024 [place] [facility], [address], [address], [place], [address], 4 05:39:16 HbA1c (hemoglobin A1c), blood 2023 024 [place] [facility], [address], [address], [place], [address], 4 05:39:17 CBC w/ auto diff 2022 023 [place] [facility], [address], [address], [place], [address], 3 14:08:41 CMP, serum or plasma 2022 023 [place] [facility], [address], [address], [place], [address], 3 16:18:08 HbA1c (hemoglobin A1c), blood 2022 023 [email or web address] [facility], [address], [address], [place], [address], 4 11:24:45 iron + TIBC + ferritin, serum 2022 023 [email or web address] [facility], [address], [address], [place], [address], 4 11:24:45 vitamin D, 25-hydroxy, total, serum 2022 023 [email or web address] [facility], [address], [address], [place], [address], 4 11:24:45 vitamin A (retinol), serum 2022 023 [place] [facility], [address], [address], [place], [address], 3 19:09:19 vitamin E, serum 2022 023 [email or web address] [facility], [address], [address], [place], [address], 4 11:24:45 PTH (parathyroi d hormone), intact, serum or plasma 2022 023 [place] [facility], [address], [address], [place], [address], 3 13:11:13 lipid panel, serum 2022 023 [email or web address] [facility], [address], [address], [place], [address], 4 11:24:45 TSH + free T4, serum 2022 023 [email or web address] [facility], [address], [address], [place], [address], 4 11:24:46 folate, serum 2022 023 [place] [facility], [address], [address], [place], [address], 3 16:19:07 methylmalon ate, QN, serum or plasma 2022 023 [email or web address] [facility], [address], [address], [place], [address], 4 11:24:46 thiamine, QN, blood 2022 023 [email or web address] [facility], [address], [address], [place], [address], 4 11:24:46 Referral None recorded. Procedures None recorded. Surgeries esophagogas troduodenos copy (SURG) 2022 024 [email or web address] [facility]he[facility], [address], [address], [place], [address], 4 14:50:26 Imaging XR, chest, 2 view 2022 023 [email or web address] [facility] ([facility]), [address], [place], [address], 4 13:55:47 electrocard iogram, routine ECG, 12 leads min 2022 023 [email or web address] Not available 4 11:26:06 Medication Orders thiamine HCl (vitamin B1) 100 mg/mL injection solution 2023 024 Not available 4 09:09:53 cyanocobala min (vit B-12) 1,000 mcg/mL injection solution 2023 024 [email or web address] Not available 4 09:08:27 Neurontin 300 mg capsule 2023 024 [email or web address] [facility] - [address], [address], 4 08:13:37 Celebrex 100 mg capsule 2023 024 [email or web address] [facility] - [address], [address], 4 09:08:16 Patient TargetsNo targets recorded. Patient InstructionsNo instructions recorded. Reason for Referral None Reported. Results Created Date Observation Date Name Description Value Unit Range Abnormal Flag Note LastModifiedBy Organization Detail LastModifiedTime 09/30/2009/30/2023 urina lysis , dipst ick Leukocytes Negati ve Not Available [facility] [address] [place] [address] Dr Luna, [place], [address], 09/30/2023 12:47:42 09/30/20 23 09/30/2023 urina lysis , dipst ick Nitrite negati ve Not Available [facility] [address] [place] [address] Dr Luna, [place], [address], 09/30/2023 12:47:42 09/30/20 23 09/30/2023 urina lysis , dipst ick Protein Negati ve Not Available [facility] [address] [place] [address] Dr Luna, [place], [address], 09/30/2023 12:47:42 09/30/2009/30/2023 urina lysis , dipst ick pH 5.0 Not Available [facility] [address] [place] [address] Dr Luna, [place], [address], 09/30/2023 12:47:42 09/30/2009/30/2023 urina lysis , dipst ick Blood Negati ve Not Available [facility] [address] [place] [address] Dr Luna, [place], [address], 09/30/2023 12:47:42 09/30/2009/30/2023 urina lysis , dipst ick Specific Manilla 1.005 Not Available [facility] [address] [place] [address] Dr Luna, [place], [address], 09/30/2023 12:47:42 09/30/2009/30/2023 urina lysis , dipst ick Ketone Negati ve Not Available [facility] [address] [place] [address] Dr Luan, [place], [address], 09/30/2023 12:47:42 09/30/2009/30/2023 urina lysis , dipst ick Bilirubin Negati ve Not Available [facility] [address] [place] [address] Dr Luna, [place], [address], 09/30/2023 12:47:42 09/30/2009/30/2023 urina lysis , dipst ick Glucose Negati ve Not Available [facility] [address] [place] [address] Dr Luna, [place], [address], 09/30/2023 12:47:42 09/30/20 23 09/30/2023 urina lysis , dipst ick Appearance Clear Not Available [facility] [address] [place] [address] [address], [place], [address], 09/30/2023 12:47:42 09/30/2009/30/2023 urina lysis , dipst ick Color Pale Yellow Not Available [facility] [address] [place] [address] [address], [place], [address], 09/30/2023 12:47:42 10/02/20 23 10/02/2023 CBC AUTO W DIFF WBC 6.9 K/uL 4.0-10 .5 Not Available [facility] ([facility]) [address] , [place], [address], 10/02/2023 14:08:41 10/02/20 23 10/02/2023 CBC AUTO W DIFF RBC 5.0 M/mm3 4.7-6. 1 Not Available [facility] ([facility]) [address] , [place], [address], 10/02/2023 14:08:41 10/02/20 23 10/02/2023 CBC AUTO W DIFF HGB 15.4 gm/dL 13.5-1 8.0 Not Available [facility] ([facility]) [address] , [place], [address], 10/02/2023 14:08:41 10/02/20 23 10/02/2023 CBC AUTO W DIFF HCT 46.5 % 42.0-5 2.0 Not Available [facility] ([facility]) [address] , [place], [address], 10/02/2023 14:08:41 10/02/20 23 10/02/2023 CBC AUTO W DIFF MCV 93.2 fL 78-100 Not Available [facility] ([facility]) [address] , [place], [address], 10/02/2023 14:08:41 10/02/20 23 10/02/2023 CBC AUTO W DIFF MCH 30.9 pg 27-31 Not Available [facility] ([facility]) [address] , [place], [address], 10/02/2023 14:08:41 10/02/20 23 10/02/2023 CBC AUTO W DIFF MCHC 33.1 g/dL 32-36 Not Available [facility] ([facility]) [address] , [place], [address], 10/02/2023 14:08:41 10/02/20 23 10/02/2023 CBC AUTO W DIFF RDW 12.9 % 11.5-1 4.0 Not Available [facility] ([facility]) [address], [place], [address], 10/02/2023 14:08:41 10/02/20 23 10/02/2023 CBC AUTO W DIFF platelet count 234 K/uL 150-45 0 Not Available [facility] ([facility]) [address], [place], [address], 10/02/2023 14:08:41 10/02/20 23 10/02/2023 CBC AUTO W DIFF MPV 9.4 fL 6-9.5 Not Available [facility] ([facility]) [address] , [place], [address], 10/02/2023 14:08:41 10/02/20 23 10/02/2023 CBC AUTO W DIFF neutrophil% 65.2 % 43-65 high Not Available [facility] ([facility]) [address], [place], [address], 10/02/2023 14:08:41 10/02/20 23 10/02/2023 CBC AUTO W DIFF lymphocyte% 24.2 % 20.5-4 5.5 Not Available [facility] ([facility]) [address] [place], [address], 10/02/2023 14:08:41 10/02/20 23 10/02/2023 CBC AUTO W DIFF monocyte% 8.6 % 5.5-11 .7 Not Available [facility] ([facility]) [address], [place], [address], 10/02/2023 14:08:41 10/02/20 23 10/02/2023 CBC AUTO W DIFF eosinophil% 1.4 % 0.9-2. 9 Not Available [facility] ([facility]) [address], [place], [address], 10/02/2023 14:08:41 10/02/20 23 10/02/2023 CBC AUTO W DIFF basophil% 0.3 % 0.2-1. 0 Not Available [facility] ([facility]) [address] [facility], [place], [address], 10/02/2023 14:08:41 10/02/20 23 10/02/2023 CBC AUTO W DIFF immature granulocytes % 0.3 % 0.0-0. 8 Not Available [facility] ([facility]) [address] [facility], [place], [address], 10/02/2023 14:08:41 10/02/20 23 10/02/2023 CBC AUTO W DIFF nucleated red blood cells % 0.0 % Not Available [facility] ([facility]) [address] [place], [address], 10/02/2023 14:08:41 10/02/20 23 10/02/2023 CBC AUTO W DIFF neutrophil# 4.5 K/uL 2.2-4. 8 Not Available [facility] ([facility]) [address] [place], [address], 10/02/2023 14:08:41 10/02/20 23 10/02/2023 CBC AUTO W DIFF lymphocyte# 1.7 cell/ mcL 1.3-2. 9 Not Available [facility] ([facility]) [address], [place], [address], 10/02/2023 14:08:41 10/02/20 23 10/02/2023 CBC AUTO W DIFF monocyte# 0.6 cell/ mcL 0.3-0. 8 Not Available [facility] ([facility]) [address], [place], [address], 10/02/2023 14:08:41 10/02/20 23 10/02/2023 CBC AUTO W DIFF eosinophil# 0.1 cell/ mcL 0-0.2 Not Available [facility] ([facility]) [address], [place], [address], 10/02/2023 14:08:41 10/02/20 23 10/02/2023 CBC AUTO W DIFF basophil# 0.0 cell/ mcL 0.0-1. 0 Not Available [facility] ([facility]) [address], [place], [address], 10/02/2023 14:08:41 10/02/20 23 10/02/2023 CBC AUTO W DIFF immature gramulocytes # 0.02 K/uL Not Available [facility] ([facility]) [address] [facility], [place], [address], 10/02/2023 14:08:41 10/02/20 23 10/02/2023 CBC AUTO W DIFF nucleated red blood cells # 0.00 K/uL Not Available [facility] ([facility]) [address] [facility], [place], [address], 10/02/2023 14:08:41 10/02/20 23 10/02/2023 CBC AUTO W DIFF manual differential NO Not Available [facility] ([facility]) [address], [place], [address], 10/02/2023 14:08:41 10/02/20 23 10/02/2023 HEMOG LOBIN A1C A1C 6.0 % 3.8-5. 6 high GLYCO SYLAT ED HEMOG LOBIN (A1C) EXPEC CHRISTINA RANGE S: <6.5 NON-D IABET IC 6.5-7 .5 EXCEL LENT 7.5-8 .5 GOOD >8.5 POOR Not Available [facility] ([facility]) [address], [place], [address], 10/02/2023 14:31:04 10/02/20 23 10/02/2023 IRON STUDY (IRON /TIBC /%SAT ) iron 110 mcg/m L 40-180 Not Available [facility] ([facility]) [address], [place], [address], 10/02/2023 16:17:16 10/02/20 23 10/02/2023 IRON STUDY (IRON /TIBC /%SAT ) TIBC 327 mcg/d L 250-45 0 Not Available [facility] ([facility]) [address], [place], [address], 10/02/2023 16:17:16 10/02/20 23 10/02/2023 IRON STUDY (IRON /TIBC /%SAT ) %sat 34 15-55 Not Available [facility] ([facility]) [address], [place], [address], 10/02/2023 16:17:16 10/02/20 23 10/02/2023 COMP METAB OLIC PANEL sodium 135 mmol/ L 136-14 5 low Not Available [facility] ([facility]) [address] [place], [address], 10/02/2023 16:18:08 10/02/20 23 10/02/2023 COMP METAB OLIC PANEL potassium 4.1 mmol/ L 3.6-5. 0 Not Available [facility] ([facility]) [address] [place], [address], 10/02/2023 16:18:08 10/02/20 23 10/02/2023 COMP METAB OLIC PANEL chloride 97 mmol/ L 98-107 low Not Available [facility] ([facility]) [address], [place], [address], 10/02/2023 16:18:08 10/02/20 23 10/02/2023 COMP METAB OLIC PANEL carbon dioxide 29.2 mmol/ L 21.0-3 2.0 Not Available [facility] ([facility]) [address], [place], [address], 10/02/2023 16:18:08 10/02/20 23 10/02/2023 COMP METAB OLIC PANEL anion gap 12.9 Not Available [facility] [address] , [place], [address], 10/02/2023 16:18:08 10/02/20 23 10/02/2023 COMP METAB OLIC PANEL glucose 93 mg/dL 70-120 Not Available [facility] ([facility]) [address] , [place], [address], 10/02/2023 16:18:08 10/02/20 23 10/02/2023 COMP METAB OLIC PANEL BUN 14 mg/dL 7-18 Not Available [facility] ([facility]) [address] , [place], [address], 10/02/2023 16:18:08 10/02/20 23 10/02/2023 COMP METAB OLIC PANEL creatinine 1.3 mg/dL 0.6-1. 3 Not Available [facility] ([facility]) [address] , [place], [address], 10/02/2023 16:18:08 10/02/20 23 10/02/2023 COMP METAB OLIC PANEL glomerular filtration rate >60 mlper min 60- Not Available [facility] ([facility]) [address] , [place], [address], 10/02/2023 16:18:08 10/02/20 23 10/02/2023 COMP METAB OLIC PANEL total protein 8.0 g/dL 6.4-8. 2 Not Available [facility] ([facility]) [address], [place], [address], 10/02/2023 16:18:08 10/02/20 23 10/02/2023 COMP METAB OLIC PANEL albumin 4.1 g/dL 3.4-5. 0 Not Available [facility] ([facility]) [address] , [place], [address], 10/02/2023 16:18:08 10/02/20 23 10/02/2023 COMP METAB OLIC PANEL globulin 3.9 Not Available [facility] ([facility]) [address] , [place], [address], 10/02/2023 16:18:08 10/02/20 23 10/02/2023 COMP METAB OLIC PANEL alb/glob ratio 1.1 0.7-2 Not Available [facility] ([facility]) [address] , [place], [address], 10/02/2023 16:18:08 10/02/20 23 10/02/2023 COMP METAB OLIC PANEL calcium 9.3 mg/dL 8.5-10 .5 Not Available [facility] ([facility]) [address] , [place], [address], 10/02/2023 16:18:08 10/02/20 23 10/02/2023 COMP METAB OLIC PANEL bilirubin total 0.70 mg/dL 0.10-1 .00 Not Available [facility] ([facility]) [address] , [place], [address], 10/02/2023 16:18:08 10/02/20 23 10/02/2023 COMP METAB OLIC PANEL AST (SGOT) 19 U/L 0-37 Not Available [facility] ([facility]) [address], [place], [address], 10/02/2023 16:18:08 10/02/20 23 10/02/2023 COMP METAB OLIC PANEL ALT (SGPT) 39 U/L 0-65 Not Available [facility] ([facility]) [address], [place], [address], 10/02/2023 16:18:08 10/02/20 23 10/02/2023 COMP METAB OLIC PANEL alk phosphatase 52 U/L 46-116 Not Available [facility] ([facility]) [address], [place], [address], 10/02/2023 16:18:08 10/02/20 23 10/02/2023 OLGA TIN ferritin, serum 348 NG/mL 3-244 high Not Available [facility] ([facility]) [address] [facility], [place], [address], 10/02/2023 16:18:12 10/02/20 23 10/02/2023 LIPID PANEL triglyceride 264 mg/dL 30-200 high Not Available [facility] ([facility]) [address], [place], [address], 10/02/2023 16:18:13 10/02/20 23 10/02/2023 LIPID PANEL cholesterol 139 mg/dL 0-200 Not Available [facility] ([facility]) [address], [place], [address], 10/02/2023 16:18:13 10/02/20 23 10/02/2023 LIPID PANEL HDL 33 mg/dL 40-104 low Not Available [facility] ([facility]) [address], [place], [address], 10/02/2023 16:18:13 10/02/20 23 10/02/2023 LIPID PANEL LDL calculated 53 mg/dL 0-130 Not Available [facility] ([facility]) [address] [facility], [place], [address], 10/02/2023 16:18:13 10/02/20 23 10/02/2023 THYRO ID STIMU LATIN G HORMO NE thyroid stim hormone 1.92 mIU/L 0.36-3 .74 Not Available [facility] ([facility]) [address] [facility], [place], [address], 10/02/2023 16:18:15 10/02/20 23 10/02/2023 T4 FREE T4 free 1.21 NG/dL 0.76-1 .46 Not Available [facility] ([facility]) [address] [facility], [place], [address], 10/02/2023 16:18:16 10/02/20 23 10/02/2023 FOLIC ACID folate (folic acid), serum 18.0 NG/mL 8.6-58 .9 *Note : Refer reji miner New Test Metho d in use. Not Available [facility] ([facility]) [address] [facility], [place], [address], 10/02/2023 16:19:07 10/02/20 23 10/02/2023 VITAM IN D, 25-HY DROXY vitamin D, 25-hydroxy 24.8 NG/mL 30.0-1 00.0 low Not Available [facility] ([facility]) [address] [facility], [place], [address], 10/02/2023 16:21:17 10/02/20 23 10/03/2023 PTH, INTAC T PTH, intact 20 pg/mL 15-65 Perfo rmed at: [facility] [address] [address] Lab Direc tor: Lazarus emmanuel PhD, Phone : [phone] Not Available [facility] ([facility]) [address] [facility], [place], [address], 10/03/2023 13:11:13 10/02/20 23 10/07/2023 VITAM IN B1 REINA INE vitamin B1 (thiamine), plasma 125.8 nmol/ L 66.5-2 00.0 Speci men Comme nt: Test( s) 81164 8-Vit . B1, Whole Blood Speci men Comme nt: was devel oped and its perfo rmanc e jeet cte risti cs Speci men Comme nt: deter mined by [employer] [facility]. It has not been stevie ared or appro timmy Speci men Comme nt: by the Food and Drug Admin istra tion. Perfo rmed at: [facility] [employer] [address] [id number] Lab Direc tor: Mary white MD, Phone : [phone] Not Available [facility] ([facility]) [address] [facility], [place], [address], 10/07/2023 06:13:18 10/02/20 23 10/07/2023 VITAM IN [...] e jeet cteri stics deter mined by [facility] [facility]. It has not been clear ed or appro timmy by the Food and Drug Admin istra tion. Perfo rmed at: [facility] [employer] Anshu weiss [address] [place] [address] Lab Direc tor: Mary white MD, Phone : [phone] Not Available [facility] ([facility]) [address] [facility], [place], [address], 10/07/2023 19:09:19 10/02/20 23 10/07/2023 VITAM IN E vitamin E(alpha tocopherol) 10.1 mg/L 7.0-25 .1 Not Available [facility] ([facility]) [address], [place], [address], 10/07/2023 19:09:20 10/02/20 23 10/07/2023 VITAM IN [...] in E defic ient. Perfo rmed at: [facility] Anshu weiss [address] [place] [id number] Lab Direc tor: Mary white MD, Phone : [phone] Not Available [facility] ([facility]) [address], [place], [address], 10/07/2023 19:09:20 10/02/20 23 10/10/2023 METHY LMALO DAKOTA ACID QUANT methylmaloni c acid, serum 119 nmol/ L 0-378 Speci men Comme nt: Test( s) 41861 7-Met hylma lonic Acid, Serum Speci men Comme nt: was devel oped and its perfo rmanc e jeet cte risti cs Speci men Comme nt: deter mined by [employer]. It has not been stevie ared or appro timmy Speci men Comme nt: by the Food and Drug Admin istra tion. Perfo rmed at: [facility] Anshu weiss [address] [place] [id number] Lab Direc tor: Mary white MD, Phone : [phone] Not Available [facility] ([facility]) [address] , [place], [address], 10/10/2023 06:13:38 11/20/19 24 11/21/[address] (H PYLOR I AB QUAL) jaycee test 20 min NEGATI VE negati ve Not Available [facility] ([facility]) [address] , [place], [address], 11/21/2023 11:26:14 11/20/19 24 11/21/[address] (H PYLOR I AB QUAL) jaycee test 1HR NEGATI VE negati ve Not Available [facility] ([facility]) [address] , [place], [address], 11/21/2023 11:26:14 11/20/19 24 11/21/[address] (H PYLOR I AB QUAL) jaycee test 3 HR NEGATI VE negati ve Not Available [facility] ([facility]) [address] , [place], [address], 11/21/2023 11:26:14 11/20/19 24 11/21/[address] (H PYLOR I AB QUAL) jaycee test 24 HR NEGATI VE negati ve Not Available [facility] ([facility]) [address] , [place], [address], 11/21/2023 11:26:14 11/20/19 24 11/21/[address] (H PYLOR I AB QUAL) jaycee test kit lot# [id number] Not Available [facility] ([facility]) [address] , [place], [address], 11/21/2023 11:26:14 11/20/19 24 11/21/[address] (H PYLOR I AB QUAL) jaycee test kit exp date Not Available [facility] ([facility]) [address] , [place], [address], 11/21/2023 11:26:14 12/17/19 24 12/18/2023 CBC WITH DIFFE RENTI AL/PL ATELE T WBC 6.6 x10e3 /uL 3.4-10 .8 Not Available [facility] ([facility]) [address] [facility], [place], [address], 12/18/2023 05:39:14 12/17/19 24 12/18/2023 CBC WITH DIFFE RENTI AL/PL ATELE T RBC 4.83 x10e6 /uL 4.14-5 .80 Not Available [facility] ([facility]) [address] [place], [address], 12/18/2023 05:39:14 12/17/19 24 12/18/2023 CBC WITH DIFFE RENTI AL/PL ATELE T hemoglobin 15.1 g/dL 13.0-1 7.7 Not Available [facility] ([facility]) [address] [facility], [place], [address], 12/18/2023 05:39:14 12/17/19 24 12/18/2023 CBC WITH DIFFE RENTI AL/PL ATELE T hematocrit 44.3 % 37.5-5 1.0 Not Available [facility] ([facility]) [address] [place], [address], 12/18/2023 05:39:14 12/17/19 24 12/18/2023 CBC WITH DIFFE RENTI AL/PL ATELE T MCV 92 fL 79-97 Not Available [facility] ([facility]) [address] [place], [address], 12/18/2023 05:39:14 12/17/19 24 12/18/2023 CBC WITH DIFFE RENTI AL/PL ATELE T MCH 31.3 pg 26.6-3 3.0 Not Available [facility] ([facility]) [address] [place], [address], 12/18/2023 05:39:14 12/17/19 24 12/18/2023 CBC WITH DIFFE RENTI AL/PL ATELE T MCHC 34.1 g/dL 31.5-3 5.7 Not Available [facility] ([facility]) [address] [facility], [place], [address], 12/18/2023 05:39:14 12/17/19 24 12/18/2023 CBC WITH DIFFE RENTI AL/PL ATELE T RDW 13.0 % 11.6-1 5.4 Not Available [facility] ([facility]) [address] [facility], [place], [address], 12/18/2023 05:39:14 12/17/19 24 12/18/2023 CBC WITH DIFFE RENTI AL/PL ATELE T platelets 227 x10e3 /uL 150-45 0 Not Available [facility] ([facility]) [address] [facility], [place], [address], 12/18/2023 05:39:14 12/17/19 24 12/18/2023 CBC WITH DIFFE RENTI AL/PL ATELE T neutrophils 61 % not estab. Not Available [facility] ([facility]) [address] [facility], [place], [address], 12/18/2023 05:39:14 12/17/19 24 12/18/2023 CBC WITH DIFFE RENTI AL/PL ATELE T lymphs 28 % not estab. Not Available [facility] [facility] [address] [facility], [place], [address], 12/18/2023 05:39:14 12/17/19 24 12/18/2023 CBC WITH DIFFE RENTI AL/PL ATELE T monocytes 9 % not estab. Not Available [facility] ([facility]) [address] [facility], [place], [address], 12/18/2023 05:39:14 12/17/19 24 12/18/2023 CBC WITH DIFFE RENTI AL/PL ATELE T eos 2 % not estab. Not Available [facility] ([facility]) [address] [place], [address], 12/18/2023 05:39:14 12/17/19 24 12/18/2023 CBC WITH DIFFE RENTI AL/PL ATELE T basos 0 % not estab. Not Available [facility] ([facility]) [address] [facility], [place], [address], 12/18/2023 05:39:14 12/17/19 24 12/18/2023 CBC WITH DIFFE RENTI AL/PL ATELE T immature cells FIBERLINE SUPERVISOR Not Available [facility] ([facility]) [address] [place], [address], 12/18/2023 05:39:14 12/17/19 24 12/18/2023 CBC WITH DIFFE RENTI AL/PL ATELE T neutrophils (absolute) 4.0 x10e3 /uL 1.4-7. 0 Not Available [facility] ([facility]) [address] [place], [address], 12/18/2023 05:39:14 12/17/19 24 12/18/2023 CBC WITH DIFFE RENTI AL/PL ATELE T lymphs (absolute) 1.9 x10e3 /uL 0.7-3. 1 Not Available [facility] ([facility]) [address] [place], [address], 12/18/2023 05:39:14 12/17/19 24 12/18/2023 CBC WITH DIFFE RENTI AL/PL ATELE T monocytes(ab solute) 0.6 x10e3 /uL 0.1-0. 9 Not Available [facility] ([facility]) [address] [place], [address], 12/18/2023 05:39:14 12/17/19 24 12/18/2023 CBC WITH DIFFE RENTI AL/PL ATELE T eos (absolute) 0.1 x10e3 /uL 0.0-0. 4 Not Available [facility] ([facility]) [address] [facility], [place], [address], 12/18/2023 05:39:14 12/17/19 24 12/18/2023 CBC WITH DIFFE RENTI AL/PL ATELE T baso (absolute) 0.0 x10e3 /uL 0.0-0. 2 Not Available [facility] ([facility]) [address] [facility], [place], [address], 12/18/2023 05:39:14 12/17/19 24 12/18/2023 CBC WITH DIFFE RENTI AL/PL ATELE T immature granulocytes 0 % not estab. Not Available [facility] ([facility]) [address] [facility], [place], [address], 12/18/2023 05:39:14 12/17/19 24 12/18/2023 CBC WITH DIFFE RENTI AL/PL ATELE T immature grans (abs) 0.0 x10e3 /uL 0.0-0. 1 Not Available [facility] ([facility]) [address] [facility], [place], [address], 12/18/2023 05:39:14 12/17/19 24 12/18/2023 CBC WITH DIFFE RENTI AL/PL ATELE T NRBC FIBERLINE SUPERVISOR Not Available [facility] ([facility]) [address] [facility], [place], [address], 12/18/2023 05:39:14 12/17/19 24 12/18/2023 CBC WITH DIFFE RENTI AL/PL ATELE T hematology comments: FIBERLINE SUPERVISOR Not Available [facility] ([facility]) [address] [facility], [place], [address], 12/18/2023 05:39:14 12/17/19 24 12/18/2023 COMP. METAB OLIC PANEL (14) glucose 89 mg/dL 70-99 Not Available [facility] ([facility]) [address] [place], [address], 12/18/2023 05:39:16 12/17/19 24 12/18/2023 COMP. METAB OLIC PANEL (14) BUN 14 mg/dL 6-24 Not Available [facility] ([facility]) [address] [place], [address], 12/18/2023 05:39:16 12/17/19 24 12/18/2023 COMP. METAB OLIC PANEL (14) creatinine 1.21 mg/dL 0.76-1 .27 Not Available [facility] ([facility]) [address] [place], [address], 12/18/2023 05:39:16 12/17/19 24 12/18/2023 COMP. METAB OLIC PANEL (14) eGFR 72 mL/mi n/1.7 3 >59 Not Available [facility] ([facility]) [address] [place], [address], 12/18/2023 05:39:16 12/17/19 24 12/18/2023 COMP. METAB OLIC PANEL (14) BUN/creatini ne ratio 12 9-20 Not Available [facility] ([facility]) [address] [place], [address], 12/18/2023 05:39:16 12/17/19 24 12/18/2023 COMP. METAB OLIC PANEL (14) sodium 138 mmol/ L 134-14 4 Not Available [facility] ([facility]) [address] [place], [address], 12/18/2023 05:39:16 12/17/19 24 12/18/2023 COMP. METAB OLIC PANEL (14) potassium 4.4 mmol/ L 3.5-5. 2 Not Available [facility] ([facility]) [address] [place], [address], 12/18/2023 05:39:16 12/17/19 24 12/18/2023 COMP. METAB OLIC PANEL (14) chloride 96 mmol/ L 96-106 Not Available [facility] ([facility]) [address] [place], [address], 12/18/2023 05:39:16 12/17/19 24 12/18/2023 COMP. METAB OLIC PANEL (14) carbon dioxide, total 25 mmol/ L 20-29 Not Available [facility] ([facility]) [address] [place], [address], 12/18/2023 05:39:16 12/17/19 24 12/18/2023 COMP. METAB OLIC PANEL (14) calcium 9.9 mg/dL 8.7-10 .2 Not Available [facility] ([facility]) [address] [place], [address], 12/18/2023 05:39:16 12/17/19 24 12/18/2023 COMP. METAB OLIC PANEL (14) protein, total 7.5 g/dL 6.0-8. 5 Not Available [facility] ([facility]) [address] [place], [address], 12/18/2023 05:39:16 12/17/19 24 12/18/2023 COMP. METAB OLIC PANEL (14) albumin 4.7 g/dL 3.8-4. 9 Not Available [facility] ([facility]) [address] [place], [address], 12/18/2023 05:39:16 12/17/19 24 12/18/2023 COMP. METAB OLIC PANEL (14) globulin, total 2.8 g/dL 1.5-4. 5 Not Available [facility] ([facility]) [address] [place], [address], 12/18/2023 05:39:16 12/17/19 24 12/18/2023 COMP. METAB OLIC PANEL (14) A/G ratio 1.7 1.2-2. 2 Not Available [facility] ([facility]) [address] [place], [address], 12/18/2023 05:39:16 12/17/19 24 12/18/2023 COMP. METAB OLIC PANEL (14) bilirubin, total 0.6 mg/dL 0.0-1. 2 Not Available [facility] ([facility]) [address] [place], [address], 12/18/2023 05:39:16 12/17/19 24 12/18/2023 COMP. METAB OLIC PANEL (14) alkaline phosphatase 69 IU/L 44-121 Not Available [facility] ([facility]) [address] [place], [address], 12/18/2023 05:39:16 12/17/19 24 12/18/2023 COMP. METAB OLIC PANEL (14) AST (SGOT) 26 IU/L 0-40 Not Available [facility] ([facility]) [address] [place], [address], 12/18/2023 05:39:16 12/17/19 24 12/18/2023 COMP. METAB OLIC PANEL (14) ALT (SGPT) 35 IU/L 0-44 Not Available [facility] ([facility]) [address] [place], [address], 12/18/2023 05:39:16 12/17/19 24 12/18/2023 HEMOG LOBIN A1C hemoglobin A1C 6.2 % 4.8-5. 6 above high normal Predi abete s: 5.7 - 6.4 Diabe zi: >6.4 Glyce alfonso contr ol for adult s with diabe zi: <7.0 Not Available [facility] ([facility]) [address] [place], [address], 12/18/2023 05:39:17 02/12/2002/13/2024 FE+TI BC+FE R iron bind.cap.(TI BC) 313 ug/dL 250-45 0 Not Available [facility] ([facility]) [address] [place], [address], 02/18/2024 20:35:49 02/12/20 24 02/13/2024 FE+TI BC+FE R UIBC 225 ug/dL 111-34 3 Not Available [facility] ([facility]) [address] [place], [address], 02/18/2024 20:35:49 02/12/2002/13/2024 FE+TI BC+FE R iron 88 ug/dL 38-169 Not Available [facility] ([facility]) [address] [place], [address], 02/18/2024 20:35:49 02/12/20 24 02/13/2024 FE+TI BC+FE R iron saturation 28 % 15-55 Not Available [facility] ([facility]) [address] [place], [address], 02/18/2024 20:35:49 02/12/2002/13/2024 FE+TI BC+FE R ferritin 267 NG/mL 30-400 Not Available [facility] ([facility]) [address] [place], [address], 02/18/2024 20:35:49 02/12/2002/13/2024 TSH+F REE T4 TSH 1.790 uIU/m L 0.450- 4.500 Not Available [facility] ([facility]) [address] [place], [address], 02/18/2024 20:35:50 04/18/20 24 02/13/2024 TSH+F REE T4 T4,free(dire ct) 1.45 NG/dL 0.82-1 .77 Not Available [facility] ([facility]) [address] [place], [address], 02/18/2024 20:35:50 02/12/20 24 02/13/2024 CBC WITH DIFFE RENTI AL/PL ATELE T WBC 5.2 x10e3 /uL 3.4-10 .8 Not Available [facility] ([facility]) [address] [place], [address], 02/18/2024 20:35:51 02/12/2002/13/2024 CBC WITH DIFFE RENTI AL/PL ATELE T RBC 4.68 x10e6 /uL 4.14-5 .80 Not Available [facility] ([facility]) [address] [place], [address], 02/18/2024 20:35:51 02/12/20 24 02/13/2024 CBC WITH DIFFE RENTI AL/PL ATELE T hemoglobin 14.7 g/dL 13.0-1 7.7 Not Available [facility] ([facility]) [address] [place], [address], 02/18/2024 20:35:51 02/12/2002/13/2024 CBC WITH DIFFE RENTI AL/PL ATELE T hematocrit 43.3 % 37.5-5 1.0 Not Available [facility] ([facility]) [address] [place], [address], 02/18/2024 20:35:51 02/12/2002/13/2024 CBC WITH DIFFE RENTI AL/PL ATELE T MCV 93 fL 79-97 Not Available [facility] ([facility]) [address] [place], [address], 02/18/2024 20:35:51 02/12/20 24 02/13/2024 CBC WITH DIFFE RENTI AL/PL ATELE T MCH 31.4 pg 26.6-3 3.0 Not Available [facility] ([facility]) [address] [place], [address], 02/18/2024 20:35:51 02/12/20 24 02/13/2024 CBC WITH DIFFE RENTI AL/PL ATELE T MCHC 33.9 g/dL 31.5-3 5.7 Not Available [facility] ([facility]) [address] [facility], [place], [address], 02/18/2024 20:35:51 02/12/20 24 02/13/2024 CBC WITH DIFFE RENTI AL/PL ATELE T RDW 12.8 % 11.6-1 5.4 Not Available [facility] ([facility]) [address] [place], [address], 02/18/2024 20:35:51 02/12/20 24 02/13/2024 CBC WITH DIFFE RENTI AL/PL ATELE T platelets 209 x10e3 /uL 150-45 0 Not Available [facility] ([facility]) [address] [facility], [place], [address], 02/18/2024 20:35:51 02/12/20 24 02/13/2024 CBC WITH DIFFE RENTI AL/PL ATELE T neutrophils 64 % not estab. Not Available [facility] ([facility]) [address] [facility], [place], [address], 02/18/2024 20:35:51 02/12/20 24 02/13/2024 CBC WITH DIFFE RENTI AL/PL ATELE T lymphs 24 % not estab. Not Available [facility] ([facility]) [address] [facility], [place], [address], 02/18/2024 20:35:51 02/12/20 24 02/13/2024 CBC WITH DIFFE RENTI AL/PL ATELE T monocytes 10 % not estab. Not Available [facility] ([facility]) [address] [facility], [place], [address], 02/18/2024 20:35:51 02/12/20 24 02/13/2024 CBC WITH DIFFE RENTI AL/PL ATELE T eos 2 % not estab. Not Available [facility] ([facility]) [address] [facility], [place], [address], 02/18/2024 20:35:51 02/12/20 24 02/13/2024 CBC WITH DIFFE RENTI AL/PL ATELE T basos 0 % not estab. Not Available [facility] ([facility]) [address] [facility], [place], [address], 02/18/2024 20:35:51 02/12/20 24 02/13/2024 CBC WITH DIFFE RENTI AL/PL ATELE T immature cells FIBERLINE SUPERVISOR Not Available [facility] ([facility]) [address] [place], [address], 02/18/2024 20:35:51 02/12/20 24 02/13/2024 CBC WITH DIFFE RENTI AL/PL ATELE T neutrophils (absolute) 3.3 x10e3 /uL 1.4-7. 0 Not Available [facility] ([facility]) [address] [facility], [place], [address], 02/18/2024 20:35:51 02/12/20 24 02/13/2024 CBC WITH DIFFE RENTI AL/PL ATELE T lymphs (absolute) 1.2 x10e3 /uL 0.7-3. 1 Not Available [facility] ([facility]) [address] [place], [address], 02/18/2024 20:35:51 02/12/20 24 02/13/2024 CBC WITH DIFFE RENTI AL/PL ATELE T monocytes(ab solute) 0.5 x10e3 /uL 0.1-0. 9 Not Available [facility] ([facility]) [address] [facility], [place], [address], 02/18/2024 20:35:51 02/12/20 24 02/13/2024 CBC WITH DIFFE RENTI AL/PL ATELE T eos (absolute) 0.1 x10e3 /uL 0.0-0. 4 Not Available [facility] ([facility]) [address] [facility], [place], [address], 02/18/2024 20:35:51 02/12/20 24 02/13/2024 CBC WITH DIFFE RENTI AL/PL ATELE T baso (absolute) 0.0 x10e3 /uL 0.0-0. 2 Not Available [facility] ([facility]) [address] [facility], [place], [address], 02/18/2024 20:35:51 02/12/20 24 02/13/2024 CBC WITH DIFFE RENTI AL/PL ATELE T immature granulocytes 0 % not estab. Not Available [facility] ([facility]) [address] [facility], [place], [address], 02/18/2024 20:35:51 02/12/20 24 02/13/2024 CBC WITH DIFFE RENTI AL/PL ATELE T immature grans (abs) 0.0 x10e3 /uL 0.0-0. 1 Not Available [facility] ([facility]) [address] [facility], [place], [address], 02/18/2024 20:35:51 02/12/20 24 02/13/2024 CBC WITH DIFFE RENTI AL/PL ATELE T NRBC FIBERLINE SUPERVISOR Not Available [facility] ([facility]) [address] [facility], [place], [address], 02/18/2024 20:35:51 02/12/20 24 02/13/2024 CBC WITH DIFFE RENTI AL/PL ATELE T hematology comments: FIBERLINE SUPERVISOR Not Available [facility] ([facility]) [address] [facility] [place] [place], [address], 02/18/2024 20:35:51 02/12/20 24 02/13/2024 COMP. METAB OLIC PANEL (14) glucose 94 mg/dL 70-99 Not Available [facility] ([facility]) [address] [facility] [place] [place], [address], 02/18/2024 20:35:52 02/12/20 24 02/13/2024 COMP. METAB OLIC PANEL (14) BUN 14 mg/dL 6-24 Not Available [facility] ([facility]) [address] [facility] [place] [place], [address], 02/18/2024 20:35:52 02/12/20 24 02/13/2024 COMP. METAB OLIC PANEL (14) creatinine 0.89 mg/dL 0.76-1 .27 Not Available [facility] ([facility]) [address] [facility] [place] [place], [address], 02/18/2024 20:35:52 02/12/20 24 02/13/2024 COMP. METAB OLIC PANEL (14) eGFR 104 mL/mi n/1.7 3 >59 Not Available [facility] ([facility]) [address] [facility] [place] [place], [address], 02/18/2024 20:35:52 02/12/20 24 02/13/2024 COMP. METAB OLIC PANEL (14) BUN/creatini ne ratio 16 9-20 Not Available [facility] ([facility]) [address] [facility] [place] [place], [address], 02/18/2024 20:35:52 02/12/20 24 02/13/2024 COMP. METAB OLIC PANEL (14) sodium 141 mmol/ L 134-14 4 Not Available [facility] ([facility]) [address] [facility] [place] [place], [address], 02/18/2024 20:35:52 02/12/20 24 02/13/2024 COMP. METAB OLIC PANEL (14) potassium 4.0 mmol/ L 3.5-5. 2 Not Available [facility] ([facility]) [address] [place], [address], 02/18/2024 20:35:52 02/12/20 24 02/13/2024 COMP. METAB OLIC PANEL (14) chloride 105 mmol/ L 96-106 Not Available [facility] ([facility]) [address] [place], [address], 02/18/2024 20:35:52 02/12/20 24 02/13/2024 COMP. METAB OLIC PANEL (14) carbon dioxide, total 25 mmol/ L 20-29 Not Available [facility] ([facility]) [address] [place], [address], 02/18/2024 20:35:52 02/12/20 24 02/13/2024 COMP. METAB OLIC PANEL (14) calcium 8.9 mg/dL 8.7-10 .2 Not Available [facility] ([facility]) [address] [place], [address], 02/18/2024 20:35:52 02/12/20 24 02/13/2024 COMP. METAB OLIC PANEL (14) protein, total 6.4 g/dL 6.0-8. 5 Not Available [facility] ([facility]) [address] [place], [address], 02/18/2024 20:35:52 02/12/20 24 02/13/2024 COMP. METAB OLIC PANEL (14) albumin 4.3 g/dL 3.8-4. 9 Not Available [facility] ([facility]) [address] [place], [address], 02/18/2024 20:35:52 02/12/20 24 02/13/2024 COMP. METAB OLIC PANEL (14) globulin, total 2.1 g/dL 1.5-4. 5 Not Available [facility] ([facility]) [address] [facility] [place] [place], [address], 02/18/2024 20:35:52 02/12/20 24 02/13/2024 COMP. METAB OLIC PANEL (14) A/G ratio 2.0 1.2-2. 2 Not Available [facility] ([facility]) [address] [facility] [place] [place], [address], 02/18/2024 20:35:52 02/12/20 24 02/13/2024 COMP. METAB OLIC PANEL (14) bilirubin, total 0.5 mg/dL 0.0-1. 2 Not Available [facility] ([facility]) [address] [facility] [place] [place], [address], 02/18/2024 20:35:52 02/12/20 24 02/13/2024 COMP. METAB OLIC PANEL (14) alkaline phosphatase 61 IU/L 44-121 Not Available [facility] ([facility]) [address] [facility] [place] [place], [address], 02/18/2024 20:35:52 02/12/20 24 02/13/2024 COMP. METAB OLIC PANEL (14) AST (SGOT) 19 IU/L 0-40 Not Available [facility] ([facility]) [address] [facility] [place] [place], [address], 02/18/2024 20:35:52 02/12/20 24 02/13/2024 COMP. METAB OLIC PANEL (14) ALT (SGPT) 29 IU/L 0-44 Not Available [facility] ([facility]) [address] [facility] [place] [place], [address], 02/18/2024 20:35:52 02/12/20 24 02/13/2024 LIPID PANEL cholesterol, total 85 mg/dL 100-19 9 below low normal Not Available [facility] ([facility]) [address] [place], [address], 02/18/2024 20:35:53 02/12/20 24 02/13/2024 LIPID PANEL triglyceride s 115 mg/dL 0-149 Not Available [facility] ([facility]) [address] [place], [address], 02/18/2024 20:35:53 02/12/20 24 02/13/2024 LIPID PANEL HDL cholesterol 30 mg/dL >39 below low normal Not Available [facility] ([facility]) [address] [place], [address], 02/18/2024 20:35:53 02/12/20 24 02/13/2024 LIPID PANEL VLDL cholesterol gorge 21 mg/dL 5-40 Not Available [facility] ([facility]) [address] [place], [address], 02/18/2024 20:35:53 02/12/20 24 02/13/2024 LIPID PANEL LDL chol calc ([facility]) 34 mg/dL 0-99 Not Available [facility] ([facility]) [address] [place], [address], 02/18/2024 20:35:53 02/12/20 24 02/13/2024 LIPID PANEL comment: FIBERLINE SUPERVISOR Not Available [facility] ([facility]) [address] [place], [address], 02/18/2024 20:35:53 02/12/20 24 02/18/2024 VITAM IN E vitamin E(alpha tocopherol) 6.6 mg/L 7.0-25 .1 below low normal Not Available [facility] ([facility]) [address] [place], [address], 02/18/2024 20:35:54 02/12/20 24 02/18/2024 VITAM IN [...] in E defic ient. Not Available [facility] ([facility]) [address] [facility], [place], [address], 02/18/2024 20:35:54 02/12/2002/13/2024 HEMOG LOBIN A1C hemoglobin A1C 5.3 % 4.8-5. 6 Predi abete s: 5.7 - 6.4 Diabe zi: >6.4 Glyce alfonso contr ol for adult s with diabe zi: <7.0 Not Available [facility] ([facility]) [address] [facility], [place], [address], 02/18/2024 20:35:55 02/12/2002/13/2024 FOLAT E (FOLI C ACID) , SERUM folate (folic acid), serum 7.8 NG/mL >3.0 A serum folat e modesta ntrat ion of less than 3.1 ng/mL is consi dered to repre sent clini gorge defic iency . Not Available [facility] ([facility]) [address] [facility], [place], [address], 02/18/2024 20:35:56 02/12/2002/18/2024 VITAM IN A, SERUM [...] Drug Admin istra tion. Not Available [facility] ([facility]) [address] [facility], [place], [address], 02/18/2024 20:35:57 02/12/20 24 02/13/2024 VITAM IN [...] Feliciano weiss [place]: [facility] . 2. Edmundo wells [place], Chucky castillo [place], Linnette off-F errar i MCNALLY, et al. Evalu ation , treat ment, and preve ntion of vitam in D defic iency : an Endoc rine Socie ty clini gorge pract ice guide line. JCEM. 2010; 96(7) :1911 -30. Not Available [facility] ([facility]) [address] [facility], [place], [address], 02/18/2024 20:35:58 02/12/20 24 02/18/2024 VITAM IN B1 (THIA MINE) , BLOOD vit. B1, whole blood 110.2 nmol/ L 66.5-2 00.0 Not Available [facility] ([facility]) [address] [facility], [place], [address], 02/18/2024 20:35:59 02/12/20 24 02/18/2024 METHY LMALO DAKOTA ACID, SERUM methylmaloni c acid, serum 94 nmol/ L 0-378 Not Available [facility] ([facility]) [address] [facility], [place], [address], 02/18/2024 20:35:59 02/12/20 24 02/13/2024 PREAL BUMIN prealbumin 24 mg/dL 10-36 Not Available [facility] ([facility]) [address] [facility], [place], [address], 02/18/2024 20:36:00 10/10/20 23 10/10/2023 elect rocar diogr am, routi ne ECG, 12 leads min No observ ation record ed. [address] (Med Record) [address], [place], [address], 12/17/2023 08:53:56 10/10/20 23 06/09/2023 stres s echoc ardio gram No observ ation record ed. [email or web address] (Med Record) [address], [place], [address], 12/17/2023 08:53:56 10/10/2006/16/2023 imagi ng/di agnos tic resul t No observ ation record ed. [email or web address] (Med Record) [address], [place], [address], 12/17/2023 08:53:56 Result Notes None recorded. Problems Name Problem SNOMED Code Status Onset Date Resolution Date Notes Provider Name and Address Organization Details Recorded Time Arthritis 1933466 Active 2021 CIR[facility] Ybarra - [facility] - [place] 3 10:52:14 Hypertensi ve disorder 66535500 Active 2021 CIRA Ybarra - [facility] - [place] 3 10:52:14 Obesity 949474486 Active 2021 CIRA Ybarra - [facility] - [place] 3 10:52:14 Male hypogonadi sm 57655132 Active 2020 Ellen Prescott null, [place] - [facility] - [place] 3 10:52:14 Atrial fibrillati on 34887158 Active Ellen Pres[place] null, [place] - [facility] - [place] 3 10:52:14 Essential hypertensi on 84090312 Active 2020 Ellen Prescott null, [place] - [facility] [place] 3 10:52:14 History of bilateral orchiectom y 647319233 Active 2020 Ellen Prescott null, [place] - [facility] - [place] 3 10:52:14 Morbid obesity 071729693 Active 2022 Lonnie Sanchez DNP, MITOCHONDRIAL DISORDERS COUNSELOR, FIBERLINE SUPERVISOR-C [address] , [place], [address] , [place] - [facility] - [place] 3 08:53:23 Disorder of function of stomach 106329499 Active 2022 Lonnie Sanchez DNP, MITOCHONDRIAL DISORDERS COUNSELOR, FIBERLINE SUPERVISOR-C [address] [facility], [place], [address] , [place] - [facility] - [place] 3 08:53:31 Unintentio nal weight gain 2755243989719 04 Active 2022 Lonnie Sanchez DNP, ARSEN, [employer]ERLINE SUPERVISOR-C [address] , [place], [address] , [place] - [facility] - [place] 3 08:53:37 Coronary arterioscl erosis 46916191 Active 2022 Lonnie Sanchez DNP, APRN, FIBERLINE SUPERVISOR-C [address] , [place], [address] , [place] - [facility] - [place] 3 12:40:31 Diastolic heart failure 690914356 Active 2022 Lonnie Sanchez DNP, ARSEN, FIBERLINE SUPERVISOR-C [address] [facility], [place], [address] , [place] - [facility] - [place] 3 12:40:42 Obstructiv e sleep apnea syndrome 12353405 Active 2022 Lonine Sanchez DNP, MITOCHONDRIAL DISORDERS COUNSELOR, FIBERLINE SUPERVISOR-C [address], [place], [address] , [place] - [facility] - [place] 3 12:40:53 Mild dehydratio n 6205965450098 Active 2023 Lonnie Sanchez DNP, MITOCHONDRIAL DISORDERS COUNSELOR, FIBERLINE SUPERVISOR-C [address], [place], [address] , [place] - [facility] - [place] 4 09:42:51 Nausea 720890943 Active 2023 Lonnie Sanchez DNP, MITOCHONDRIAL DISORDERS COUNSELOR, FIBERLINE SUPERVISOR-C [address], [place], [address] , [place] - [place] & [place] 4 09:49:08 Clammy skin [id number] Active 2023 Lonnie Sanchez DNP, [employer] DISORDERS COUNSELOR, FIBERLINE SUPERVISOR-C [address], [place], [address] , [place] - [place] - [place] & [place] 4 09:49:13 Diarrhea [id number] Active 2023 Lonnie Sanchez DNP, [employer] DISORDERS COUNSELOR, FIBERLINE SUPERVISOR-C [address], [place], [address] , [place] - [place] - [place] & [place] 4 09:49:21 Problem Notes None recorded. Procedures Surgical History Date Name Laterality Status Provider Name and Address Organization Details Recorded Time 12/25/19 24 laparoscopic sleeve gastrectomy completed Ophelia Mccarty [place] [facility] & [place] 12/30/2023 08:15:25 07/02/20 23 MISCELLANEOUS SURGICAL PROCEDURE (SURG) completed Lonnie Sanchez DNP, [employer]ORDERS COUNSELOR, FIBERLINE SUPERVISOR-C [address], [place], [address], [place] - [facility] - [place] & [place] 12/17/2023 08:53:58 Orchiectomy partial completed Lonnie Sanchez DNP, [employer] DISORDERS COUNSELOR, FIBERLINE SUPERVISOR-C [address], [place], [place], [address], [facility] [place] 10/02/2023 11:28:12 procedure on back completed Lonnie Sanchez DNP, APRN, FIBERLINE SUPERVISOR-C [address], [place] [address], [facility] 10/02/2023 11:29:07 implantation of neurostimulator in spine completed Lonnie Sanchez DNP, APRN, FIBERLINE SUPERVISOR-C [address], [address] [facility] 10/02/2023 11:27:30 cardiac catheterization completed Lonnie Sanchez DNP, APRN, FIBERLINE SUPERVISOR-C [address], [address] [facility] [place] 10/02/2023 11:27:21 Vasectomy completed Lonnie Sanchez DNP, APRN, FIBERLINE SUPERVISOR-C [address], [address] [facility] [place] 10/02/2023 11:28:52 Imaging Results None recorded. Procedure Notes None [...] Not Available Not Available Maximum Red Krill [place]-3 300 mg-90 mg-27 mg-45 mg capsule Take [...] completed Not Available Not Available Not Available [facility] COVID-19 Antigen Rapid Home Test kit 01/24 completed Not Available Not Available Not Available Vitals Date Recorded Body height Body temperature Heart rate Body mass index (BMI) Body weight Systolic blood pressure Diastolic blood pressure Provider Name and Address Organization Details Last Updated DateTime 4 185.42 cm 98.3 [degF] 66 /min 45.4 kg/m2 518063. 06 g 121 mm[Hg] 78 mm[Hg] Ophelia DENIS - LAURIE [facility] 4 12:02:37 Date Recorded Body height Body mass index (BMI) Body weight Provider Name and Address Organization Details Last Updated DateTime 12/30/2023 185.42 cm 42.7 kg/m2 796877.13 g Ophelia JACOBSON [facility] 12/30/2023 08:10:22 Date Recorded Body height Body mass index (BMI) Body weight Body temperature Heart rate Systolic blood pressure Diastolic blood pressure Provider Name and Address Organization Details Last Updated DateTime 4 185.42 cm 42 kg/m2 127912. 81 g 97.8 [degF] 51 /min 137 mm[Hg] 79 mm[Hg] Ophelia JACOBSON [facility] 4 09:10:18 Date Recorded Body height Body mass index (BMI) Body weight Body temperature Heart rate Systolic blood pressure Diastolic blood pressure Provider Name and Address Organization Details Last Updated DateTime 3 185.42 cm 45.9 kg/m2 659945. 43 g 98.1 [degF] 60 /min 110 mm[Hg] 71 mm[Hg] Ophelia JACOBSON [facility] 3 10:24:47 Social History Question Answer Notes LastModified by Organizat ion Details LastModified Time Tobacco Smoking Status Former Smoker CIRA Landry [facility] 10/02/2023 10:22:11 When Did You Quit Smoking? 16+yearssinc elastcigaret te [email or web address] Information not available 10/02/2023 Sex: Unknown Functional Status Question Answer Note LastModified by Organization D etails LastModified Time What is your level of alcohol consumption? None [email or web address] Information not available 10/02/2023 Mental Status None recorded. Family History Relationship Description Onset Age of this Age Resolved Age Notes LastModified by Organization Details LastModified Time Father Hypertensive disorder [email or web address] Not available 2022 10:21:29 Father Heart disease Not available 2022 10:21:47 Mother Hypertensive disorder [email or web address] Not available 2022 10:21:29 Mother Heart disease [email or web address] Not available 2022 10:21:47 Medical History Condition Response Anxiety Disorder Y Coronary Artery Disease Y Heart Problems Y Sleep Apnea Y High Cholesterol Y Heart Disease Y Hypertension Y Immunizations Vaccine Type Date Status Note Provider Nam e and Address Organization Details Recorded Time Influenza, split virus, quadrivalent, preservative 2 completed CIRA Ybarra [facility] [place] 09/30/2023 10:51:59 zoster recombinant 2 completed CIRA Ybarra [facility] [place] 09/30/2023 10:51:59 zoster recombinant 2 completed Ellen Prescott null, [place] [facility] [place] 09/30/2023 10:51:59 COVID-19, mRNA, LNP-S, PF, 100 mcg/0.5mL dose or 50 mcg/0.25mL dose 2 completed Ellen Prescott null, [place] [facility] [place] 09/30/2023 10:51:59 COVID-19, mRNA, LNP-S, PF, 100 mcg/0.5mL dose or 50 mcg/0.25mL dose 1 completed Ellen Prescott null, [place] [facility] [place] 09/30/2023 10:51:59 COVID-19, mRNA, LNP-S, PF, 100 mcg/0.5mL dose or 50 mcg/0.25mL dose 1 completed Ellen Prescott null, [place] - [place] - [facility] [place] 09/30/2023 10:51:59 Tdap 6 completed Ellen Prescott null[place] [facility] [place] 09/30/2023 10:51:59 Td (adult), 2 Lf tetanus toxoid, preservative free, adsorbed 0 completed Ellen Prescott null, [place] - [place] - [facility] [place] 09/30/2023 10:51:59 Hep B, adult 7 completed Ellen Prescott null[place] - [facility] [place] 09/30/2023 10:51:59 Hep B, adult 7 completed Ellen Prescott null[place] [facility] [place] 09/30/2023 10:51:59 Hep B, adult 7 completed Ellen Prescott [place] [facility] [place] 09/30/2023 10:51:59 Hep A, adult 6 completed Ellen Prescott null[place] [facility] [place] 09/30/2023 10:51:59 Influenza, split virus, quadrivalent, PF 1 completed Ellen Prescott null[place] [facility] [place] 09/30/2023 10:51:59 influenza, unspecified formulation 3 completed Ophelia Mccarty [facility], [place] - [place] [facility] [place] 12/17/2023 12:00:49 Past Encounters Encounter ID Performer Location Encounter Start Date Encounter Closed Date Diagnosis/Indication Diagnosis SNOMED-CT Code Diagnosis ICD10 Code Diagnosis Note [id number] MD VICKY [facility] [address] [facility] [address] [place] [address] 09/30/2023 10:40:19 09/30/2023 11:55:19 Chronic back pain 598207430 G89.29 Erectile dysfunction 860 587263 F52.21 Atrial fibrillation 4943 6004 I48.91 Morbid obesity 113040068 E66.01 [id number] Lonnie Sanchez, DNP, MITOCHONDRIAL DISORDERS COUNSELOR, FIBERLINE SUPERVISOR-C [facility] [address] [place] [address] 10/02/2023 07:53:25 10/02/2023 12:46:52 Obesity 060153649 E66.9 The patient will be scheduled for [...] after all testing has been completed Arthritis 9168333 M19.90 Atrial fibrillation 4943 6004 I48.91 Essential hypertension 52995249 I10 Male hypogonadism 288005 06 E29.1 Morbid obesity 186011461 E66.01 Disorder o f function of stomach 644333812 K31.89 Unintentio nal weight gain 6571333702 33457 R63.5 Coronary arteriosclerosis 76300671 I25.10 Diastolic heart failure 780939741 I50.30 Obstructiv e sleep apnea syndrome 61430623 G47.[id number]N, LD [facility] [address] [facility] [address] [address] [place] [address] 10/02/2023 11:56:57 10/02/2023 14:55:02 Morbid obesity 444369870 E66.01 Discussed 0527-6800 kcal/day for weight loss and 100 g protein/da y with 250 g carbs/day or about 60 g/meal, QID. Deficient knowledge of food and/or nutrition 1773638141 Z76.89 Long discussion regarding carbs, protein, and how to balance these. Pt is motivated to learn and experiment with a variety of ingredient s and to begin monitoring carbs. Irregular meal frequency 572381328 Z72.4 Follow 2-4 Hour Rule and eat 3 meals with snack or 4 meals daily in small amounts containing protein. [id number] Micheal Archuleta DO [facility] [address] [place] [address] [address] [place] [address] 12/17/2023 07:51:58 12/17/2023 15:42:14 Arthritis 5531506 M19.90 Atrial fibrillation 4943 6004 I48.91 Coronary arteriosclerosis 01232354 I25.10 Diastolic heart failure 506213335 I50.30 Essential hypertension 97611610 I10 Obstructiv e sleep apnea syndrome 25601517 G47.33 Morbid obesity 743428212 E66.01 Hypertensive disorder 38 480440 I10 Male hypogonadism 018417 06 E29.1 History of bilateral orchiectomy 579720441 Z90.79 Pre-surger y evaluation 971878902 Z01.818 Postoperative pain 16877 9007 G89.18 Continue current PPI therapy [id number] Lonnie Sanchez, DNP, MITOCHONDRIAL DISORDERS COUNSELOR, FIBERLINE SUPERVISOR-C [facility] [address] [place] [address] [address] [place] [address] 12/30/2023 07:54:39 12/30/2023 11:46:41 History of bariatric surgical procedure 644551794 Z98.84 The patient is doing well. The [...] [facility] are to make sure that the [...] plan and agree to comply. Mild dehydration 7797019 119 108 E86.0 will proceed with one liter of IVF in office. Pt toelrating ivf fine. Morbid obesity 391739859 E66.01 Gyne girl you got this Nausea 839958987 R11.0 Essential hypertension 59268270 I10 Diarrhea 98535107 R19.7 [id number] Lonnie Sanchez, PERCY, MITOCHONDRIAL DISORDERS COUNSELOR, FIBERLINE SUPERVISOR-C [facility] [address] [facility] [address] [place] [address] 02/12/2024 09:00:16 02/12/2024 09:42:10 History of bariatric surgical procedure 634746549 Z98.84 The patient is doing well. The patient is instructed to continue their vitamins as directed. They are to continue advancing their diet as directed.T valerie may start exercising but keep lifting less [...] [facility] they are to make sure that the [...] plan and agree to comply. Essential hypertension 86652770 I10 Intentiona l weight loss 083091386 R63.8 History of gastrectomy 040636389 Z90.3 Arthritis 5696006 M19.90 Atrial fibrillation 4943 6004 I48.91 Diastolic heart failure 999433794 I50.30 Obstructiv e sleep apnea syndrome 03699508 G47.33 Morbid obesity 012820373 E66.01 He will see dietiticia n today. [id number] YAS PIERRE RD, LD [facility] [address] [place] [address] 02/12/2024 09:43:07 02/12/2024 14:00:41 Morbid obesity 243507365 E66.01 BMI 42 wt loss 25.4# [facility] 291924171 Z71.3 Health Concerns Section Related Observation LastModified by Organization Detai ls LastModified Time None Recorded Concern Status LastModified by Organization Details LastModified Time None Recorded Advance Directives Directive None Recorded Payers Insurance Date Sequence Insurance Name Policy Number Policy Penny Covered Member ID Penny Member ID Guarantor Name 05/15/2024 1 [place] [id number] S Lizzy Columbus [id number] Pepe Columbus 05/15/2024 [facility] CLAIMS DEPARTMENT Pepe Columbus Pepe Columbus 02/05/2021 1 [employer] [facility] (MEDICAID HMO) Pepe Columbus [id number] Pepe Columbus 05/15/2024 1 [place] [id number] A Lizzy Columbus [id number] Pepe Columbus 09/30/2023 1 [employer] [facility] (MEDICAID HMO) Pepe Okeefe [id number] Pepe Okeefe Notes Date Note Type Note Provider Name [...] Patient is being followed by Dr. Brady hat lacer. He is to follow up in week. He is had recent heart catheterization, stress, echo and has recently had loop recorder placed yesterday. He was told by his hat lacer that needs to lose 50 lb immediately. [...] boredom, makes me happy Lonnie Sanchez, DNP, MITOCHONDRIAL DISORDERS COUNSELOR, FIBERLINE SUPERVISOR-C [address] [facility], [place], [address], [facility] [place] 10/02/2023 12:42:19 3 text/html RDN met w/ [...] reviewed.Notes - heart issues; unable to find Wegovy in stock; hx of adipex which was [...] with deer meat, Malone's traditional sauce, and Yoruba meatballs with 1 glass sweet tea made with 1.5 cup sugar in 1 gallonS - skipped Frequency of eating out: 1x/month Social Hx reviewed.Notes - walks out to mailbox and around the house. Describes alcohol consumption monthly - 1 drink. Activity is restricted 2/2 hat lacer recommendations for heart health Recent changes: mental preparedness of major lifestyle change and reports cutting back on food portions Motivation for surgery: health issues Support after surgery: reports family support; is present today Goals for surgery: wants to lose enough weight to improve heart health and back pain INDY KIM RDN, LD [address] [facility], [place], [address], [facility] [place] 10/02/2023 13:37:46 4 text/html The patient is [...] have also undergone a class with the leaf stripper and have received clear instructions on what is required regarding fluid intake, protein intake and vitamin consumption postoperatively. The patient is being managed by their PCP for their arthritis, a fib, coronary aterteriosclerosis, Diastolic heart failure, hypertension, obstructive sleep apnea and is currently stable. Micheal Archuleta DO [address], [place], [address], [facility] [place] 12/17/2023 14:10:36 4 text/html Patient presents for [...] of life after Weight loss Surgery. Lonnie Sanchez, PERCY, MITOCHONDRIAL DISORDERS COUNSELOR, FIBERLINE SUPERVISOR-C [address], [place], [address], [facility] [place] 12/30/2023 11:51:59 4 text/html Patient presents the [...] provider every month.He is to see his hat lacer (Caitlyn) in [facility]. He also goes to [facility]. There, he sees Dr. Goncalves. Lonnie Sanchez, DNP, MITOCHONDRIAL DISORDERS COUNSELOR, FIBERLINE SUPERVISOR-C [address], [place], [address], [facility] [place] 02/12/2024 09:34:35 4 text/html ADIME TemplateA: LINDSEYN met w/Pepe Okeefe for 1 month f/up [...] day Additional notes/concerns: Patient doing well I: LINDSEYN Recommendations/Goals:1 . Continue tracking intake2. Work toward 9548-0577 kcal for 3 mo appt.3. Physical activity 3 times a week Pt verbally agreed to recommendations and goals. Denied further questions/concerns. M/E: RD will monitor weight loss, labs, and lifestyle modifications. Will f/up as scheduled or PRN. . YAS PIERRE RD, LD [address], [place], [address], [facility] [place] 02/12/2024 13:48:04
--- NOTE | 2025-03-24 15:15 | CA_ITS ---
APPROVED REPORT EXAM: Limited 2D Echocardiogram Pouncing Lathe Operator: Anita Knight, RCS, RVS Ht: 6 ft 2 in Wt: 297lbs BSA: 2.57 BP: 145/86 mmHg Indications: CAD, MICHELLE, CP, Fatigue, Afib, Loop recorder, Hx-gastric bypass 2D Dimensions IVSd 1.22 cm M: 0.6-1.2 LVEF (Visual) 70.90 % PWd 0.93 cm M: 0.6 - 1.2 LVDd 5.83 cm M: 4.2 - 5.9 LVDs 3.45 cm M: 2.5 - 4.0 M-Mode Dimensions RVDd 3.98 cm (0.9-2.6) LA Diam 4.69 cm (1.9-4.0) LVDd 5.51 cm (3.5-5.7) LVDs 4.00 cm (3.5-5.7) IVSd 1.08 cm (0.6-1.1) PWd 1.18 cm (0.6-1.1) EF (Teich) 57.30% EPSs 0.30 cm FS 30.60% EDV (Teich) 163.90 mL ESV (Teich) 70.00 mL Other Information Study Quality: Fair Conclusion This is a limited TTE to evaluate for LV systolic function. Limited windows were obtained. The left ventricle is normal in size. There is normal LV wall thickness. There is normal global LV systolic function. No regional wall motion abnormalities are noted. LVEF is 55%. The right ventricle appears normal in size and function. The atria are normal in size. The valves are not well-evaluated in this limited study No evidence of pericardial effusion. Electronically signed by : Niharika Dean MD 03/26/2025 20:41:45
== END 2025-03-24 23:59 | disposition home or self-care (01) ==
LOC: RT 14:42
PROVIDERS: PCP Nurse Practitioner Family; Visit Provider Nurse Practitioner
DX: I25.10 Atherosclerotic heart disease of native coronary artery without angina pectoris (principal); G47.33 Obstructive sleep apnea (adult) (pediatric); I50.30 Unspecified diastolic (congestive) heart failure; I48.91 Unspecified atrial fibrillation; Z95.818 Presence of other cardiac implants and grafts; Z98.84 Bariatric surgery status
CPT/HCPCS: 93308

== ENCOUNTER 2025-04-13 10:47 | Outpatient (CLI) | payer BC, SELFPAY ==
--- OUTSIDE RECORDS SUMMARY | 2025-04-13 10:53 | XMS_ITS | Encounter Summary ---
Author Organization Healthcare Address [address] [place] [address] Care Team Providers Care Bone Puller Name Role Phone Hu Xiao MD Primary Care Provider [phone] Ba Yin MD Unavailable [phone] Deborah Calhoun APRN Primary Care Provider [phone] Encounter Details Date Type Department Care Team (Late st Contact Info) Description 11/18/2023 Community [facility] [address] [place] [address] Calos Barillas, MANUSCRIPTS CURATOR [address] [place] [address] Social History Tobacco Use Types Packs/Day Years Used Date Smoking Tobacco: Former Cigarettes Q uit: 2002 Smokeless Tobacco: Never Alcohol Use Standard Drinks/Week Comments Never 0 (1 standard drink = 0.6 oz pur e alcohol) Sex and Gender Information Value Date Recorded Sex Assigned at Not on file Legal Sex Male 7:33 PM EDT Gender Identity Not on file Sexual Orientation Not on file documented as of this encounter Plan of Treatment Upcoming Encounters Date Type Department Care Team (Late st Contact Info) Description 04/15/2025 11:40 AM EDT Office Visit [facility] Interventional Pain Medicine [address] [facility] [place] [address] Matt David MD [address] [facility] [address] [place] [address] documented as of this encounter Visit Diagnoses Not on filedocumented in this encounter Additional Health Concerns Assessment Noted Time A fall risk assessment has been complete d for the patient 10/29/2023 1:41 PM EST A Body Mass Index follow-up plan has been documented for the patient 10/29/2023 3:47 PM EST documented as of this encounter Care Teams Bone Puller Relationship Specialty Start Date End Date Hu Xiao MD [address] [facility] [address] [place] [address] PCP - General 03/09/21 02/24/24 Deborah Calhoun APRN [address] [place] [address] PCP - General 02/25/24 Ba Yin MD [id number] [place] [address] Surgeon Neurosurgery 07/09/21 documented as of this encounter
--- OUTSIDE RECORDS SUMMARY | 2025-04-13 10:54 | XMS_ITS | Clinical Summary ---
Author Organization [facility] [place] Address [address] [place] [address] Care Team Providers Care Manager Supply Chain Name Role Phone Ba Yin MD Unavailable [phone] Deborah Calhoun APRN Primary Care Provider [phone] Allergies No known active allergies Medications rosuvastatin (Crestor) 20 MG tablet Take 1 tablet (20 mg) by mouth every night. 1 Active Multiple Vitamin (MULTI-VITAMIN DAILY PO) 5 Active omeprazole (PriLOSEC) [address] capsule Take by mouth 1 (one) time each day. 2 Active metoprolol succinate XL (Toprol-XL) 25 MG 24 hr tablet TAKE ONE TABLET BY MOUTH EVERY NIGHT AT BEDTIME FOR HYPERTENSION 2 Active meloxicam (Mobic) 15 MG tablet Take 1 tablet (15 mg total) by mouth 1 (one) time each day if needed for moderate pain. 30 tablet 2 3 Active tiZANidine (Zanaflex) 4 MG tablet Take 1 tablet (4 mg total) by mouth every 8 (eight) hours if needed for muscle spasms. 30 tablet 1 3 Active Xarelto 20 MG tablet TAKE ONE TABLET BY MOUTH DAILY MUST ADMINISTER WITH EVENING MEAL 3 Active spironolactone (Aldactone) 50 MG tablet TAKE ONE (1) TABLET BY MOUTH TWICE DAILY 3 Active sacubitril-vals constantin (Entresto) 49-51 MG tablet Take 1 tablet by mouth 2 (two) times a day. Active Aspirin Low Dose 81 MG EC tablet Take 1 tablet (81 mg) by mouth 1 (one) time each day. 4 Active ranolazine (Ranexa) 500 MG 12 hr tablet TAKE ONE (1) TABLET TWICE A DAY BY ORAL ROUTE. 4 Active multivitamin with minerals (Centrum) 9-200 mg-mcg tablet split tablet 1 split tablet. 3 Active metoprolol succinate XL (Toprol-XL) 100 MG 24 hr tablet Take 1 tablet (100 mg) by mouth 1 (one) time each day. 4 Active loratadine (Claritin) 5 MG chewable tablet Chew 1 tablet (5 mg) 1 (one) time each day. Active alpha tocopherol (Vitamin E) 400 UNIT/15ML liquid Take 100 Units by mouth 2 (two) times a day. Active multivitamin with minerals (Centrum) 9-200 mg-mcg tablet split tablet 1 split tablet. 4 Active testosterone cypionate (Depo-Testoster one) 200 MG/ML injection Active Testosterone (Androgel) 1.62 % transdermal gel pump 4 Active mupirocin (Bactroban) 2 % ointmentIndicat ions:Vertebroge rosa pain To use twice daily x 5 days before surgical date 1 g 4 Active B-D SYRINGE LUER-LENARD 1CC 1 ML misc 4 Active B-D 3CC LUER-LENARD SYR 41UK0-9/2 21G X 1-1/2 3 ML misc USE TO DRAW UP TESTOSTERONE 4 Active rosuvastatin (Crestor) 40 MG tablet 4 Active naloxone (Narcan) 4 mg/0.1 mL nasal spray 1. Give 1 spray in nostril for no/slow breathing or cannot wake after opioid use 2. Call 911 3. Repeat in other nostril if symptoms continue 1 each 4 Active HYDROcodone-barry taminophen (Sieper) 5-325 MG tablet Take 1 tablet (5 mg of hydrocodone) by mouth every 6 hours as needed for severe pain. 28 tablet 5 Active cetirizine (ZyrTEC) 10 MG tablet 5 Active ergocalciferol 1.25 MG (50895 UT) capsule 5 Active methocarbamol (Robaxin) 500 MG tablet Take 1 tablet every 6 hours by oral route as needed for 30 days. 5 Active neomycin-polymy lexy-hydrocortis one (Cortisporin) 3.5-41516-1 otic suspension INSTILL 4 DROPS INTO AFFECTED EAR(S) BY OTIC ROUTE 3 TIMES PER DAY 5 Active Active Problems Problem Noted Date Diagnosed Date Chronic heart failure with preserved ejection fr action 10/29/2023 Syncope and collapse 10/29/2023 Morbid obesity with body mass index (BMI) of 40. 0 or higher 07/23/2022 Lumbosacral spondylosis 03/19/2021 Lumbar radicular pain 01/24/2021 Pre-procedure lab exam 04/02/2017 Lumbar radiculopathy, right 04/02/2017 Failed back syndrome, lumbar 06/07/2016 Myofascial muscle pain 03/13/2016 Spondylolisthesis of lumbosacral region 09/19/20 15 Spinal stenosis, lumbar 07/05/2015 Lumbar radiculitis 06/20/2015 Lumbar disc herniation with radiculopathy 2013 Low back pain 09/14/2014 Encounters Date Type Department Care Team Description 01/28/2025 2:30 PM EDT Office Visit [facility] Interventional Pain Medicine [address] [place] [address] Matt David MD Spondylosis of lumbosacral region without myelopathy or radiculopathy (Primary Dx); Vertebrogenic low back pain; Postlaminectomy syndrome, not elsewhere classified; Coccydynia 01/28/2025 Travel from Last 3 Months Immunizations Immunization Administration Dates Next Due Hep A, Adult 02/07/2016 Hep B, adult 07/22/1997,01/19/1997,12/15/1996 Influenza, Unspecified 10/13/2023 Influenza, injectable, quadrivalent 10/10/2023,0 07/26/2022 Influenza, injectable, quadr ivalent, preservative free 08/06/2021 TD (adult), 2 Lf tetanus tox oid, preservative free, adsorbed 07/19/2000 Tdap 01/25/2016 Zoster, Recombinant 02/21/2022 Family History Medical History Relation Name Comments Hypertension Father Stroke Father Hypertension Mother Stroke Mother Relation Name Status Comments Father Mother Social History Tobacco Use Types Packs/Day Years Used Date Smoking Tobacco: Former Cigarettes Q uit: 2002 Smokeless Tobacco: Never Tobacco Cessation:Counseling Given: Not Answered Alcohol Use Standard Drinks/Week Comments Never 0 (1 standard drink = 0.6 oz pur e alcohol) Sex and Gender Information Value Date Recorded Sex Assigned at Not on file Legal Sex Male 7:33 PM EDT Gender Identity Not on file Sexual Orientation Not on file Last Filed Vital Signs Vital Sign Reading Time Taken Comments Blood Pressure 114/68 01/28/2025 2:47 PM EDT Pulse 74 01/28/2025 2:47 PM EDT Temperature 36.3 C (97.3 F) 01/28/2025 2:47 PM EDT Respiratory Rate 14 01/28/2025 2:47 PM EDT Oxygen Saturation 97% 08/31/2024 11:32 AM EST Inhaled Oxygen Concentration - - Weight 127 kg (280 lb) 01/28/2025 2:47 PM EDT Height 193 cm (6' 4 ) 01/28/2025 2:47 PM EDT Body Mass Index 34.08 01/28/2025 2:47 PM EDT Plan of Treatment Upcoming Encounters Date Type Department Care Team (Late st Contact Info) Description 04/15/2025 11:40 AM EDT Office Visit [facility] Interventional Pain Medicine [address] [facility] [place] [address] Matt David MD [address] [facility] [address] [place] [id number] Health Maintenance Due Date Last Done Comments [facility]-Depression Screening 1972 [facility]-HIV Screening 1972 [facility]-Hepatitis C Screening 1972 [facility]-/Child/Adol SDOH Screenings 1972 [facility]- SDOH Screenings 1990 [facility]-Adult SDOH Screenings 1990 CT Colonography 2017 Colonoscopy 2017 FIT-DNA 2017 FIT 2017 FOBT 2017 Sigmoidoscopy 2017 [facility]-Colorectal Cancer Screening 2017 NHL-SFCQC-00 Vaccine ( season) 2024 02/27/2022, 08/01/2021, 07/04/2021 [facility]-DTaP,Tdap,and Td Vaccines (3 - Td or Tdap) 01/28/2035 01/28/2025, 01/25/2016, 07/19/2000 [facility]-Hepatitis B Vaccines Completed 997, 01/19/1997, 12/15/1996 [facility]-Hepatitis A Vaccines Aged Out 02/07/2016 No longer eligible based on patient's age to complete this topic [facility]-Influenza Vaccine Completed 10/04/2024 , 08/10/2024, 10/13/2023, Additional history exists [facility]-Obesity Intervention Completed 025, 11/24/2024, 10/25/2024, Additional history exists [facility]-Pneumococcal Vaccine: 50+ Years Completed 01/28/2025 [facility]-Zoster Vaccines Completed 01/28/2025, HPV Vaccines Aged Out No longer eligi ble based on patient's age to complete this topic [facility]-HIB Vaccines Aged Out No longer e ligible based on patient's age to complete this topic [facility]-IPV Vaccines Aged Out No longer e ligible based on patient's age to complete this topic [facility]-Rotavirus Vaccines Aged Out No lo nger eligible based on patient's age to complete this topic Medical Devices Implanted Type Area Educational/Development Assistant Device Identifier Shelf Expiration Date Model / Serial / Lot Assert Iq El+Icm Du Loop Recorder-2022 Implanted:03/2023 (Quantity not on file) Implantable Loop Recorder [employer] [id number] / / Proclaim Xr 5 Spinal Cord Stimulator Spinal Cord Stimulator Back [employer] 3660 / / Description:LEAD MODEL: [id number] , located at [employer] Care Teams Manager Supply Chain Relationship Specialty Start Date End Date Deborah Calhoun APRN [address] [place] [address] PCP - General 02/25/24 Ba Yin MD [id number] [place] [address] Surgeon Neurosurgery 07/09/21
[2025-04-13 11:56] LABS: Chloride 106 mmol/L (98-107); Sodium 139 mmol/L (136-145)
[2025-04-13 11:57] LABS: Potassium 4.8 mmoL/L (3.5-5.1)
[2025-04-13 11:59] LABS: Blood Urea Nitrogen 17 mg/dl (9-20); Estimated Glomerular Filt Rate 70 ml/min (>60); GFR (African American) 85 ML/MIN (>60)
[2025-04-13 12:00] LABS: Anion Gap 8.8 mEq/L (5-15); Calcium 9.1 mg/dl (8.4-10.2); Carbon Dioxide 29 mmol/L (22.0-30.0); Glucose 89 mg/dl (74-100)
== END 2025-04-13 23:59 | disposition home or self-care (01) ==
LOC: LAB 10:48
PROVIDERS: PCP Nurse Practitioner Family; Visit Provider Nurse Practitioner
DX: I25.10 Atherosclerotic heart disease of native coronary artery without angina pectoris (principal); I10 Essential (primary) hypertension
CPT/HCPCS: 36415; 80048

== ENCOUNTER 2025-07-19 11:30 | Outpatient (CLI) | payer BC, SELFPAY ==
--- OUTSIDE RECORDS SUMMARY | 2025-05-31 11:00 | XMS_ITS | Encounter Summary ---
Author Organization Healthcare Address [address] [place] [address] Care Team Providers Care Hat Steamer Name Role Phone Ba Yin MD Unavailable [phone] Deborah Calhoun APRN Primary Care Provider [phone] Reason for Visit * Reason Comments Injections * Other Medical (Routine) - Closed Specialty Diagnoses / Procedures Referred By Contac t Referred To Contact Pain Medicine Diagnoses Lumbar disc herniation with radiculopathy Chronic bilateral low back pain with right-sided sciatica Procedures Interlaminer Epidural - Lumbar / Sacral Matt David MD [address] [facility] [address] [address] Phone: tel: fax: [facility] Interventional Pain Medicine [address] [place] [address] Phone: tel: fax: Referral ID Status Reason Start Date Expiration Date Visits Re quested Visits Authorized [id number] Closed 05/24/2025 11/23/2026 1 1 Encounter Details Date Type Department Care Team (Late st Contact Info) Description 05/31/2025 11:00 AM EDT Procedure Visit [facility] Interventional Pain Medicine [address] [place], [place] [phone] Matt David MD [address] [facility] [address] [place], [place] [phone] Lumbar disc herniation with radiculopathy; Chronic bilateral low back pain with right-sided sciatica Social History Tobacco Use Types Packs/Day Years [...] on file documented as of this encounter Last Filed Vital Signs Vital Sign Reading Time Taken Comments Blood Pressure 117/75 05/31/2025 11:24 AM EDT Pulse 60 05/31/2025 11:24 AM EDT Temperature 36.2 C (97.2 F) 05/31/2025 10:55 AM EDT Respiratory Rate 18 05/31/2025 11:24 AM EDT Oxygen Saturation 97% 05/31/2025 11:24 AM EDT Inhaled Oxygen Concentration - - Weight 127 kg (280 lb) 05/31/2025 10:55 AM EDT Height 185.4 cm (6' 1 ) 05/31/2025 10:55 AM EDT Body Mass Index 36.94 05/31/2025 10:55 AM EDT documented in this encounter Miscellaneous Notes * Clinician Note - Irasema Harmon RN - 05/31/2025 11:00 AM EDTAssociated Order(s): Interventional Pain Nurse Procedure Protocol Interventional Pain Nurse Procedure Protocol Documentation: Indications: Documentation supporting primary procedure completed by : Irasema Harmon RN See the provider procedure note for performed procedure details and findings. Pre-Procedure Checklist: Currently taking anticoagulant(s)?: yes Name of anticoagulant?: Aspirin and rivaroxaban Last dose of anticoagulant medication:: Xarelto & ASA 81 mg last taken 05/25/25 Warehouse Manager present?: no Additional Pre-Procedure Comments: NITA Cunningham timeout was called immediately prior to the procedure, in accordance with [employer] policy @ 1114 Procedure details: Procedure start time:: 05/31/2025 11:16 AM Procedure end time:: 05/31/2025 11:20 AM Guidance used (if applicable): fluoro Total amount of contrast dye (mGy): 4.07 Fluoro time: 16.4 seconds Moderate conscious sedation used?: no Post-procedure details: Orientation at discharge?: Normal to time, normal to place, normal to person, normal to situation and completely oriented Mood and Affect normal?: yes Discharged to: home Mode of exit: Walked (walked to lobby@ 11:30 AM) Attendance: Constant attendance by certified staff until patient recovered Recovery: Patient returned to pre-procedure baseline Estimated blood loss (see I/O flowsheets): no Specimens recovered: None Patient is stable for discharge or admission: yes Procedure completion: Tolerated well, no immediate complications * Progress Notes - Sanjeev Emery DO - 05/31/2025 11:00 AM EDTAssociated Order(s): Interlaminer Epidural - Lumbar / Sacral Pre-Procedure Diagnose(s): Lumbar disc herniation with radiculopathy; Chronic bilateral low back pain with right-sided sciatica Post-Procedure Diagnose(s): Lumbar disc herniation with radiculopathy; Chronic bilateral low back pain with right-sided sciatica Patient ID: Pepe Okeefe is a 54 y.o. male. Encounter Diagnoses Name Primary? Lumbar disc herniation with radiculopathy Chronic bilateral low back pain with right-sided sciatica Interlaminer Epidural - Lumbar / Sacral Performed by: Sanjeev Emery DO Authorized by: Matt David MD Patient seen and evaluated prior to their procedure.There is nothing in the patient's overall condition that would affect the planned course of the patient's treatment today that requires additional interventions to reduce risk to the patient. Procedure(s): L5-S1 Lumbar Interlaminar Epidural Steroid injection Anesthesia Type: local only Complications: none Follow-up Plan: Clinic follow up as scheduled Procedure: This patient was seen earlier for a comprehensive evaluation of their painful condition.After discussing treatment options, the patient elected to proceed with a lumbar interlaminar epidural steroid injection. Written, informed consent was obtained before the start of the procedure. Thepatient's history of present illness, past medical history (including current medications and allerg ies), and physical examination were reviewed with the patient immediately before the procedure, andit was confirmed directly with the patient that they desired to proceed. The patient ambulated to the operating room and was placed in the prone position with pressure points padded. A time out was performed, confirming the patient's identification, allergy status, the side(s) of the procedure, and the procedure(s) to be performed. All operators were wearing hats, masksand sterile gloves. The patient underwent ChloraPrep skin prep followed by sterile drape. The interlaminar space was then identified by fluoroscopy and marked. The patient received 1% lidocaine for local anesthesia subcutaneously. An 20-gauge 9 cm Tuohy needle was then advanced under fluoroscopic guidance using a coaxial approach, loss of resistance to saline until the epidural space was entered. After negative aspiration, under live fluoroscopy in the anterior-posterior position, 1 mL of contrast solution was injected. This demonstrated appropriate epidural spread and was negative for intravascular or intrathecal flow. After confirmation of proper positioning of the needle within the epidural space 40 mg of DepoMedrol was injected with 3 mL of normal saline. The stylette was replaced and the needle was then removed. Sterile bandage was applied over the puncture site. Following completion of the procedure, the patient was transported to the PACU, then was later discharged in stable condition. Cosigned by Matt David MD at 05/31/2025 11:49 AM EDT Associated attestation - Matt aDvid MD - 05/31/2025 11:49 AM EDT I was present for the entirety of the procedure(s). documented in this encounter Plan of Treatment Not on file documented as of this encounter Procedures Procedure Name Priority Date/Time Associated Diagnosis Comments IVP NURSE PROCEDURE PROTOCOL Routine 05/31/2025 11:00 AM EDT MN NJX DX/THER SBST INTRLMNR LMBR/SAC W/IMG GDN Routine 05/31/2025 11:00 AM EDT Lumbar disc herniation with radiculopathy Chronic bilateral low back pain with right-sided sciatica documented in this encounter Results * Interventional Pain Nurse Procedure Protocol (05/31/2025 11:00 AM EDT) Narrative Irasema Harmon RN - 05/31/2025 11:00 AM EDT Irasema Harmon RN 05/31/2025 11:52 AM Interventional Pain Nurse Procedure Protocol Documentation: Indications: Documentation supporting primary procedure completed by : Irasema Harmon RN See the provider procedure note for performed procedure details and findings. Pre-Procedure Checklist: Currently taking anticoagulant(s)?: yes Name of anticoagulant?: Aspirin and rivaroxaban Last dose of anticoagulant medication:: Xarelto & ASA 81 mg last taken 05/25/25 Warehouse Manager present?: no Additional Pre-Procedure Comments: NITA Cunningham timeout was called immediately prior to the procedure, in accordance with [employer] policy @ 1114 Procedure details: Procedure start time:: 05/31/2025 11:16 AM Procedure end time:: 05/31/2025 11:20 AM Guidance used (if applicable): fluoro Total amount of contrast dye (mGy): 4.07 Fluoro time: 16.4 seconds Moderate conscious sedation used?: no Post-procedure details: Orientation at discharge?: Normal to time, normal to place, normal to person, normal to situation and completely oriented Mood and Affect normal?: yes Discharged to: home Mode of exit: Walked (walked to [facility]@ 11:30 AM) Attendance: Constant attendance by certified staff until patient recovered Recovery: Patient returned to pre-procedure baseline Estimated blood loss (see I/O flowsheets): no Specimens recovered: None Patient is stable for discharge or admission: yes Procedure completion: Tolerated well, no immediate complications us Matt David MD IN CLINIC/BEDSIDE ORDERABLES Final Result * MN NJX DX/THER SBST INTRLMNR LMBR/SAC W/IMG GDN (05/31/2025 11:00 AM EDT) Narrative Matt David MD - 05/31/2025 11:00 AM EDT Matt David MD 05/31/2025 11:49 AM Interlaminer Epidural - Lumbar / Sacral Performed by: Sanjeev Emery DO Authorized by: Matt David MD us Matt David MD IN CLINIC/BEDSIDE ORDERABLES Final Result documented in this encounter Visit Diagnoses Diagnosis Lumbar disc herniation with radiculopathy Displacement of lumbar intervertebral disc without myelopathy Chronic bilateral low back pain with right-sided sciatica documented in this encounter Administered Medications Inactive Administered Medications - up to 3 most recent administrations Medication Order MAR Action Action Date Dose Rate Site iohexol (OMNIPaque) 300 MG/ML injection 10 mL 10 mL, Other, Once in imaging, 1 dose, Starting on Fri05/31/25 at 1108, Until Fri05/31/25 at 1115, RoutineIndications:Lumbar disc herniation with radiculopathy,Chronic bilateral low back pain with right-sided sciatica Given by Other 05/31/2025 11:15 AM EDT 10 mL lidocaine PF (Xylocaine) 1 % injection 300 mg 300 mg (30 mL), Injection, Once, 1 dose, On Fri05/31/25 at 1200, RoutineIndications:Lumbar disc herniation with radiculopathy,Chronic bilateral low back pain with right-sided sciatica Given by Other 05/31/2025 11:14 AM EDT 300 mg methylPREDNISolone acetate (DEPO-Medrol) injection 40 mg 40 mg, Intra-articular, Once, 1 dose, On Fri05/31/25 at 1200, RoutineIndications:Lumbar disc herniation with radiculopathy,Chronic bilateral low back pain with right-sided sciatica Given by Other 05/31/2025 11:15 AM EDT 40 mg sodium bicarbonate 8.4 % injection 50 mEq 50 mEq, Intradermal, Once, 1 dose, On Fri05/31/25 at 1200, RoutineIndications:Lumbar disc herniation with radiculopathy,Chronic bilateral low back pain with right-sided sciatica Given by Other 05/31/2025 11:15 AM EDT 50 mEq sodium chloride (PF) 0.9 % injection 20 mL 20 mL, Intracatheter, Once, 1 dose, On Fri05/31/25 at 1200, RoutineIndications:Lumbar disc herniation with radiculopathy,Chronic bilateral low back pain with right-sided sciatica Given by Other 05/31/2025 11:14 AM EDT 20 mL documented in this encounter Additional Health Concerns Assessment Noted Time A fall risk assessment has been complete d for the patient 05/31/2025 10:54 AM EDT A Body Mass Index follow-up plan has been documented for the patient 05/31/2025 11:52 AM EDT documented as of this encounter Care Teams Hat Steamer Relationship Specialty Start Date End Date Deborah Calhoun APRN [address] [place] [address] PCP - General 02/25/24 Ba Yin MD [address] [facility] [address] [place] [address] Surgeon Neurosurgery 07/09/21 documented as of this encounter
--- OUTSIDE RECORDS SUMMARY | 2025-07-19 11:34 | XMS_ITS | Encounter Summary ---
Author Organization Healthcare Address [address] [place] [address] Care Team Providers Care Unit Operator Name Role Phone Ba Yin MD Unavailable [phone] Deborah Calhoun APRN Primary Care Provider [phone] Reason for Referral * Other Medical (Routine) - Closed Specialty Diagnoses / Procedures Referred By Contac t Referred To Contact Pain Medicine Diagnoses Lumbar disc herniation with radiculopathy Chronic bilateral low back pain with right-sided sciatica Procedures Interlaminer Epidural - Lumbar / Sacral Matt David MD [address] [facility] [address] [place] [address] Phone: tel: fax: [facility] Interventional Pain Medicine [facility] [address] [place] [address] Phone: tel: fax: Referral ID Status Reason Start Date Expiration Date Visits Re quested Visits Authorized [id number] Closed 05/24/2025 11/23/2026 1 1 Encounter Details Date Type Department Care Team (Latest Contact Info) Description 05/24/2025 Orders Only [facility] Interventional Pain Medicine [address] [place] [address] Derrick Otero, DO [address] [place], [place] [phone] Lumbar disc herniation with radiculopathy (Primary Dx); Chronic bilateral low back pain with right-sided [...] as of this encounter Plan of Treatment Not on file documented as of this encounter Results * HI NJX DX/THER SBST INTRLMNR LMBR/SAC W/IMG GDN (05/31/2025 11:00 AM EDT) Narrative Matt David MD - 05/31/2025 11:00 AM EDT Matt David MD 05/31/2025 11:49 AM Interlaminer Epidural - Lumbar / Sacral Performed by: Sanjeev Emery DO Authorized by: Matt David MD Matt David MD IN CLINIC/BEDSIDE ORDERABLES Final Result documented in this encounter Visit Diagnoses Diagnosis Lumbar disc herniation with radiculopathy- Primary Displacement of lumbar intervertebral disc without myelopathy Chronic bilateral low back pain with right-sided sciatica Lumbar disc herniation with radiculopathy Displacement of lumbar intervertebral disc without myelopathy Chronic bilateral low back pain with right-sided sciatica documented in this encounter Additional Health Concerns Assessment Noted Time A fall risk assessment has been complete d for the patient 04/15/2025 11:36 AM EDT A Body Mass Index follow-up plan has been documented for the patient 04/15/2025 11:52 AM EDT documented as of this encounter Care Teams Unit Operator Relationship Specialty Start Date End Date Deborah Calhoun APRN [address] [place] [address] PCP - General 02/25/24 Ba Yin MD [address] [facility] [address] [place] [address] Surgeon Neurosurgery 07/09/21 documented as of this encounter
--- OUTSIDE RECORDS SUMMARY | 2025-07-19 11:34 | XMS_ITS | Encounter Summary ---
Author Organization Healthcare Address [address] [place] [address] Care Team Providers Care Mold Car Pusher Name Role Phone Hu Xiao MD Primary Care Provider [phone] Ba Yin MD Unavailable [phone] Deborah Calhoun APRN Primary Care Provider [phone] Encounter Details Date Type Department Care Team (Late st Contact Info) Description 11/18/2023 Community [facility] [address] [place] [address] Calos Barillas, LITHOGRAPH PRESS FEEDER [address] [place] [address] Social History Tobacco Use Types Packs/Day Years [...] on file documented as of this encounter Visit Diagnoses Not on filedocumented in this encounter Additional Health Concerns Assessment Noted Time A fall risk assessment has been complete d for the patient 10/29/2023 1:41 PM EST A Body Mass Index follow-up plan has been documented for the patient 10/29/2023 3:47 PM EST documented as of this encounter Care Teams Mold Car Pusher Relationship Specialty Start Date End Date Hu Xiao MD [address] [place] [address] [id number] PCP - General 03/09/21 02/24/24 Deborah Calhoun APRN [address] [place] [address] [facility] PCP - General 02/25/24 Ba Yin MD [address] [facility] [address] [place] [address] Surgeon Neurosurgery 07/09/21 documented as of this encounter
--- OUTSIDE RECORDS SUMMARY | 2025-07-19 11:34 | XMS_ITS | Clinical Summary ---
Author Organization [facility] Address [address] [place] [address] Care Team Providers Care Methods Specialist Engineer Name Role Phone Physician, No Primary Care Primary Care Provider Unavailable Allergies No known active allergies Medications No known medications Social History Tobacco Use Types Packs/Day Years Used Date Smoking Tobacco: Never Assessed Safety and Environment Answer Date Juan rded How often does anyone, blanka jacobsen family and friends, physically hurt you? Not on file 04/03/2024 How often does anyone, blanka jacobsen family and friends, insult or talk down to you? Not on file 04/03/2024 How often does anyone, blanka jacobsne family and friends, threaten you with harm? Not on file 04/03/2024 How often does anyone, blanka jacobsen family and friends, scream or curse at you?' Not on file 04/03/2024 Sex and Gender Information Value Date Recorded Sex Assigned at Not on file Legal Sex Male 1:06 PM CDT Gender Identity Not on file Sexual Orientation Not on file Last Filed Vital Signs Vital Sign Reading Time Taken Comments Blood Pressure 128/68 04/03/2024 1:10 PM CDT Pulse 97 04/03/2024 1:10 PM CDT Temperature 36.6 C (97.9 F) 04/03/2024 1:10 PM CDT Respiratory Rate 18 04/03/2024 1:10 PM CDT Oxygen Saturation 98% 04/03/2024 1:10 PM CDT Inhaled Oxygen Concentration - - Weight 135 kg (298 lb) 04/03/2024 1:10 PM CDT Height 182.9 cm (6') 04/03/2024 1:10 PM CDT Body Mass Index 40.42 04/03/2024 1:10 PM CDT Plan of Treatment Health Maintenance Due Date Last Done Comments IMM Schedule: Varicella (1 of 2 - 13+ 2-dose series) 1985 Colon Cancer Screening Colonoscopy 2017 Colon Cancer Screening FIT-DNA (Cologuard) (3 year) 2017 Colon Cancer Screening FOBT/FIT (1 year) 2017 Colon Cancer Screening 2017 Sigmoidoscopy (5 year) Colon Cancer Screening 2017 IMM Schedule: Pneumococcal (50+ Years) (1 of 1 - PCV) 2022 IMM Schedule: Zoster (2 of 2) 2022 02/21/2022 COVID-19 Vaccine ( - season) 2025 IMM Schedule: Influenza (#1) 2025, 10/10/2023, 07/26/2022, Additional history exists IMM Schedule: Diphtheria, Tetanus, and Pertussis (2 - Td or Tdap) 01/24/2026 01/25/2016, 07/19/2000 IMM Schedule: Hepatitis B Completed 1996, 01/19/1997, 12/15/1996 IMM Schedule: Hepatitis A Aged Out 02/07/2016 No longer eligible based on patient's age to complete this topic IMM Schedule: Meningococcal ACWY (Menhibrix/Menomune) Aged Out No longer elig ible based on patient's age to complete this topic IMM Schedule: Meningococcal B Aged Out No longer eligible based on patient's age to complete this topic IMM Schedule: RSV <20 Months Aged Out No longer eligible based on patient's age to complete this topic Insurance [employer] PPO Care Teams Methods Specialist Engineer Relationship Specialty Start Date End Date Physician, No Primary Care PCP - General Internal Medicine 04/03/24 Additional Source Comments IMPORTANT NOTICES REGARDING PATIENT RECORDS DISCLOSED THROUGH CARE EVERYWHERE:1. If the informationreleased to you contains information about AIDs or HIVtest results, that information has been disclosed to you from records whoseconfidentiality is protected by state law ([place]RS 214.625). State law proh ibitsyou from making any further disclosure of such information relating to AIDS orHIV without the specific written consent of the person to whom such informationpertains, or as otherwise permitted by state law. A general authorization forthe release of medical or other information is NOT sufficient for this purpose.2. If the information released to you contains information about alcohol ordrug abuse diagnosis, treatment for such abuse, or referrals for treatment, andif the release was made by a program as defined in 42 CFR 2.11, thisinformation has been disclosed to you from records protected by Federalconfidentiality rules ( TheFederal rules restrict any use of the information to criminally investigate orprosecute any alcohol or drug abuse patient.3. If the information released to you contains information about a person'smental health or chemical dependency, you may not redisclose or otherwisereveal information concerning the mental health or chemical dependency of thatperson, beyond the purpose for which the disclosure was made, without firstobtaining that person's specific written consent to the redisclosure. [id number].[facility]
--- OUTSIDE RECORDS SUMMARY | 2025-07-19 11:34 | XMS_ITS | Encounter Summary ---
Author Organization [facility] Address [address] [place] [address] Care Team Providers Care Contact Lens Blocker And Cutter Name Role Phone Ba Yin MD Unavailable [phone] Deborah Calhoun APRN Primary Care Provider [phone] Encounter Details Date Type Department Care Team (Latest Contact Info) Description 05/31/2025 Travel Social History Tobacco Use Types Packs/Day Years [...] documented as of this encounter Care Teams Contact Lens Blocker And Cutter Relationship Specialty Start Date End Date Deborah Calhoun APRN [address] [place] [address] PCP - General 02/25/24 Ba Yin MD [address] [place] [phone] Surgeon Neurosurgery 07/09/21 documented as of this encounter
--- OUTSIDE RECORDS SUMMARY | 2025-07-19 11:34 | XMS_ITS | Encounter Summary ---
Author Organization [facility] Address [address] [place] [address] Care Team Providers Care Yoke Setter Name Role Phone Ba Yin MD Unavailable [phone] Deborah Calhoun APRN Primary Care Provider [phone] Encounter Details Date Type Department Care Team ([facility] st Contact Info) Description 05/31/2025 Orders Only External Location [address] [place] [address] Provider, External Social History Tobacco Use Types Packs/Day Years [...] Procedure Name Priority Date/Time Associated Diagnosis Comments POC ULTRASOUND 05/31/2025 documented in this encounter Results * POC Imaging (05/31/2025) Anatomical Region Laterality Modality Pelvis Other 05/31/2025 us External Provider IMG POINT OF CARE ULTRASOUND F inal Result documented in this encounter Visit Diagnoses Not on filedocumented in this encounter Additional Health Concerns Assessment Noted Time A fall risk assessment has been complete d for the patient 05/31/2025 10:54 AM EDT A Body Mass Index follow-up plan has been documented for the patient 05/31/2025 11:52 AM EDT documented as of this encounter Care Teams Yoke Setter Relationship Specialty Start Date End Date Deborah Calhoun APRN [address] [place] [address] PCP - General 02/25/24 Ba Yin MD [address] [facility] [address] [place] [address] Surgeon Neurosurgery 07/09/21 documented as of this encounter
--- OUTSIDE RECORDS SUMMARY | 2025-07-19 11:34 | XMS_ITS | Encounter Summary ---
Author Organization [facility] Address [address] [place] [address] Care Team Providers Care Nozzle Cement Sprayer Helper Name Role Phone Ba Yin MD Unavailable [phone] Deborah Calhoun APRN Primary Care Provider [phone] Reason for Visit * Reason Onset Date Comments HCN - Patient Message 05/23/2025 Encounter Details Date Type Department Care Team (Late st Contact Info) Description 05/23/2025 Telephone [facility] Interventional Pain Medicine [address] [place] [address] Matt David MD [address] [facility] [address] [place] [address] HCN - Patient Message Social History Tobacco Use Types Packs/Day Years [...] on file documented as of this encounter Miscellaneous Notes * Telephone Encounter - Marly Gustafson - 05/24/2025 1:17 PM EDT All set * Telephone Encounter - Marly Gustafson - 05/24/2025 10:52 AM EDT Asked for order * Telephone Encounter - Matt Vargas - 05/23/2025 2:52 PM EDT Clinical Concern/Question Reason for Call: Harned patient is asking to be scheduled for a repeat Sacrococcygeal ligament injection & L4/L5 LESI Best contact number: [phone] (home) Optimal time of day to reach caller: ANYTIME Additional comments/information from caller: None Note: Please do not reply to this message. Follow-up communication and further actions as a result of this message need to be communicated with the patient directly, if the patient is not active onMyChart. If the patient is active on MyChart, they will receive notification of the communication/outcome via [employer]. documented in this encounter Plan of Treatment [...] documented as of this encounter Care Teams Nozzle Cement Sprayer Helper Relationship Specialty Start Date End Date Deborah Calhoun APRN [address] [place] [address] PCP - General 02/25/24 Ba Yin MD [address] [facility] [address] [place] [address] Surgeon Neurosurgery 07/09/21 documented as of this encounter
--- OUTSIDE RECORDS SUMMARY | 2025-07-19 11:34 | XMS_ITS | Clinical Summary ---
Author Organization [facility] Address [address] [place] [address] Care Team Providers Care Caterpillar Driver Name Role Phone Ba Yin MD Unavailable [phone] Deborah Calhoun APRN Primary Care Provider [phone] Allergies No known active allergies Medications rosuvastatin [...] MUST ADMINISTER WITH EVENING MEAL 3 Active sacubitril-vals constantin (Entresto) 49-51 MG [...] misc 4 Active B-D 3CC LUER-LENARD SYR 87ST3-6/2 21G X 1-1/2 3 ML misc USE TO DRAW UP TESTOSTERONE 4 Active rosuvastatin (Crestor) 40 MG tablet 4 Active naloxone (Narcan) 4 mg/0.1 mL nasal spray 1. Give 1 spray in nostril for no/slow breathing or cannot wake after opioid use 2. Call 911 3. Repeat in other nostril if symptoms continue 1 each 4 Active HYDROcodone-barry taminophen ([place]) 5-325 MG tablet Take 1 tablet (5 mg of hydrocodone) by mouth every 6 hours as needed for severe pain. 28 tablet 5 Active cetirizine (ZyrTEC) 10 MG tablet 5 Active ergocalciferol 1.25 MG (63667 UT) capsule 5 Active methocarbamol (Robaxin) 500 MG tablet Take 1 tablet every 6 hours by oral route as needed for 30 days. 5 Active neomycin-polymy lexy-hydrocortis one (Cortisporin) 3.5-82260-1 otic suspension INSTILL 4 DROPS INTO AFFECTED EAR(S) BY OTIC ROUTE 3 TIMES PER DAY 5 Active Farxiga 10 MG tablet Take 1 tablet by mouth daily. Active spironolactone (Aldactone) 25 MG tablet Take 1 tablet by mouth daily. 5 Active lidocaine (Lidoderm) 5 % patch APPLY 1 PATCH BY TOPICAL ROUTE ONCE DAILY (MAY WEAR UP TO 12HOURS.) 5 Active Easy Touch Hypodermic Needle 22G X 1 misc 5 Active Active Problems Problem Noted Date Diagnosed Date Chronic heart failure with preserved ejection fr action 10/29/2023 Morbid obesity with body mass index (BMI) of 40. 0 or higher 07/23/2022 Lumbosacral spondylosis 03/19/2021 Lumbar radicular pain 01/24/2021 Pre-procedure lab exam 04/02/2017 Lumbar radiculopathy, right 04/02/2017 Failed back syndrome, lumbar 06/07/2016 Myofascial muscle pain 03/13/2016 Spondylolisthesis of lumbosacral region 09/19/20 15 Spinal stenosis, lumbar 07/05/2015 Lumbar radiculitis 06/20/2015 Lumbar disc herniation with radiculopathy 2013 Low back pain 09/14/2014 Resolved Problems Problem Noted Date Diagnosed Date Resolved Date Syncope and collapse 10/29/2023 025 Encounters Date Type Department Care Team Description 05/31/2025 11:00 AM EDT Procedure Visit [facility] Interventional Pain Medicine [address] [place] [phone] Matt David MD Lumbar disc herniation with radiculopathy; Chronic bilateral low back pain with right-sided sciatica 05/31/2025 Orders Only External Location [address] [place] [address] Provider, External 05/31/2025 Travel 05/24/2025 Orders Only [facility] Interventional Pain Medicine [address] [place] [phone] Derrick Otero, DO Lumbar disc herniation with radiculopathy (Primary Dx); Chronic bilateral low back pain with right-sided sciatica 05/23/2025 Telephone [facility] Interventional Pain Medicine [address] [place] [address] Matt David MD HCN - Patient Message from Last 3 Months Immunizations Immunization Administration [...] Mass Index 36.94 05/31/2025 10:55 AM EDT Plan of Treatment Health Maintenance Due Date Last Done Comments [facility]-Depression Screening 1972 [facility]-HIV Screening 1972 [facility]-Hepatitis C Screening 1972 [facility]-Infant/Child/Adol SDOH Screenings 1972 [facility]- SDOH Screenings 1990 [facility]-Adult SDOH Screenings 1990 CT Colonography 2017 Colonoscopy 2017 FIT-DNA 2017 FIT 2017 FOBT 2017 Sigmoidoscopy 2017 [facility]-Colorectal Cancer Screening 2017 [id number] Vaccine ( season) 2025 02/27/2022, 08/01/2021, 07/04/2021 [facility]-Influenza Vaccine (#1) 06/27/202510/04, 08/10/2024, 10/13/2023, Additional history exists [facility]-DTaP,Tdap,and Td Vaccines (3 - Td or Tdap) 01/28/2035 01/28/2025, 01/25/2016, 07/19/2000 [facility]-Hepatitis B Vaccines Completed 997, 01/19/1997, 12/15/1996 [facility]-Pneumococcal Vaccine: 50+ Years Completed 01/28/2025 [facility]-Zoster Vaccines Completed 01/28/2025, [facility]-Hepatitis A Vaccines Aged Out 04/07/2025, 01/25 No longer eligible based on patient's age to complete this topic [facility]-Obesity Intervention Completed 025, 04/15/2025, 01/28/2025, Additional history exists HPV Vaccines Aged Out No longer eligi [...] this topic Medical Devices Implanted Type Area Collaborating Supervising Physician Device Identifier Shelf Expiration Date Model / Serial / Lot Assert Iq El+Icm Du Loop Recorder-2022 Implanted:1203/2023 (Quantity not on file) Implantable Loop Recorder Chest [employer]Box [id number] / / Proclaim Xr 5 Spinal Cord Stimulator Spinal Cord Stimulator Back [employer] 3660 / / Description:LEAD MODEL: [id number] , located at T9 Procedures Procedure Name Priority Date/Time Associated Diagnosis Comments IVP NURSE PROCEDURE PROTOCOL Routine 05/31/2025 11:00 AM EDT [place] NJX DX/THER SBST INTRLMNR LMBR/SAC W/IMG GDN Routine 05/31/2025 11:00 AM EDT Lumbar disc herniation 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 Pre-Procedure Checklist: Currently taking anticoagulant(s)?: yes Name of anticoagulant?: Aspirin and rivaroxaban Last dose of anticoagulant medication:: Xarelto & ASA 81 mg last taken 05/25/25 Rig Builder Helper present?: no Additional Pre-Procedure Comments: NITA Cunningham timeout was called immediately prior to the procedure, in accordance with [employer] policy @ 1114 Procedure details: Procedure start [...] home Mode of exit: Walked (walked to [facility]@ 11:30 AM) Attendance: Constant attendance by certified staff until patient recovered Recovery: Patient returned to pre-procedure baseline Estimated blood loss (see I/O flowsheets): no Specimens recovered: None Patient is stable for discharge or admission: yes Procedure completion: Tolerated well, no immediate complications us Matt David MD IN CLINIC/BEDSIDE ORDERABLES Final Result * [place] NJX DX/THER SBST INTRLMNR LMBR/SAC W/IMG GDN (05/31/2025 11:00 AM EDT) Narrative Matt David MD - 05/31/2025 11:00 AM EDT Matt David MD 05/31/2025 11:49 AM Interlaminer Epidural - Lumbar / Sacral Performed by: Sanjeev Emery DO Authorized by: Matt David MD us Matt David MD IN CLINIC/BEDSIDE ORDERABLES Final Result * POC Imaging (05/31/2025) Anatomical Region Laterality Modality Pelvis Other 05/31/2025 us External Provider IMG POINT OF CARE ULTRASOUND F inal Result from Last 3 Months Insurance JETT Care Teams Caterpillar Driver Relationship Specialty Start Date End Date Deborah Calhoun APRN [address] [place] [address] PCP - General 02/25/24 Ba Yin MD [address] [place] [address] Surgeon Neurosurgery 07/09/21
--- NOTE | 2025-07-19 11:37 | XR_ITS ---
FINAL REPORT CLINICAL HISTORY: .pain in bilat knees for years // no prev injury FINDINGS: AP, lateral and oblique views of the left knee were obtained. There is no prior exam for comparison. There is no acute osseous abnormality of the left knee. The joint space is preserved. The soft tissues are normal. There is no joint effusion. IMPRESSION: No acute osseous abnormality of the left knee. Reviewed, Interpreted and Dictated by Mery Friend MD Transcribed by Fernanda Siddiqi Authenticated and [facility]
--- NOTE | 2025-07-19 11:37 | XR_ITS ---
FINAL REPORT CLINICAL HISTORY: ACUTE PAIN IN BOTH KNEES /// no prev injury FINDINGS: AP, lateral and oblique views of the right knee were obtained. There is no prior exam for comparison. There is no acute osseous abnormality of the right knee. The joint space is preserved. The soft tissues are normal. There is no joint effusion. IMPRESSION: No acute osseous abnormality of the right knee. Reviewed, Interpreted and Dictated by Mery Friend MD Transcribed by Fernanda Siddiqi Authenticated and . [facility]
== END 2025-07-19 23:59 | disposition home or self-care (01) ==
LOC: RAD 11:31
PROVIDERS: PCP Nurse Practitioner Family; Visit Provider Nurse Practitioner Family
DX: M25.561 Pain in right knee (principal); M25.562 Pain in left knee
CPT/HCPCS: 73562